=== PATIENT | female | born 1990 | race Caucasian/White ===

== ENCOUNTER 2020-06-20 14:14 | Outpatient (REF) | payer BC, SELFPAY ==
[2020-06-20 14:45] LABS: COVID-19 Test Negative (Negative)
== END 2020-06-20 14:15 | disposition home or self-care (01) ==
LOC: HO.LAB 14:14
PROVIDERS: PCP Nurse Practitioner Family; Visit Provider Internal Medicine
DX: Z20.828 Contact with and (suspected) exposure to other viral communicable diseases (principal)
CPT/HCPCS: 87635

== ENCOUNTER 2020-07-31 12:59 | Outpatient (REF) | payer BC, SELFPAY ==
[2020-08-01 03:36] LABS: CT PCR NOT DETECTED (Not Detect.); NG PCR NOT DETECTED (Not Detect.)
[2020-08-01 09:45] LABS: BV Int Neg Control Negative (Negative); BV Int Pos Control Positive (Positive)
[2020-08-08 22:18] LABS: HPV mRNA E6/E7 rflx Not Detected (Not Detected)
== END 2020-07-31 13:00 | disposition home or self-care (01) ==
LOC: HO.LAB 12:59
PROVIDERS: PCP Nurse Practitioner Family; Visit Provider Advanced Practice Midwife
DX: Z01.419 Encounter for gynecological examination (general) (routine) without abnormal findings (principal); N89.8 Other specified noninflammatory disorders of vagina; Z20.2 Contact with and (suspected) exposure to infections with a predominantly sexual mode of transmission
CPT/HCPCS: 87480; 87491; 87510; 87591; 87624; 87625; 87660; 88142

== ENCOUNTER 2020-08-06 13:49 | Outpatient (REF) | payer BC, SELFPAY | END 2020-08-06 13:50 | disposition home or self-care (01) | LOC: HO.LAB 13:49 | PROVIDERS: Visit Provider Advanced Practice Midwife | DX: Z13.89 Encounter for screening for other disorder (principal) ==

== ENCOUNTER 2021-05-29 11:46 | Outpatient (REF) | payer BC, SELFPAY ==
[2021-05-29 13:15] LABS: Syphilis Screen Nonreactive (Nonreactive)
[2021-05-29 17:15] LABS: CT PCR NOT DETECTED (Not Detect.); NG PCR NOT DETECTED (Not Detect.)
[2021-05-30 08:19] LABS: HBsAGNum1 0.24 S/CO (0.00-0.99); HIV AB/AG Nonreactive (Nonreactive); HIV Num 1 0.14 S/CO (0.00-0.99); Hepatitis B Surface Antigen Negative (Negative); ~HepC Num1 0.12 S/CO (0.00-0.79); ~Hepatitis C Antibody Nonreactive (Nonreactive)
[2021-05-30 10:59] LABS: BV Int Neg Control Negative (Negative); BV Int Pos Control Positive (Positive)
== END 2021-05-29 11:47 | disposition home or self-care (01) ==
LOC: HO.LAB 11:46
PROVIDERS: PCP Nurse Practitioner Family; Visit Provider Obstetrics & Gynecology
DX: Z30.432 Encounter for removal of intrauterine contraceptive device (principal); Z30.09 Encounter for other general counseling and advice on contraception; N76.0 Acute vaginitis; B96.89 Other specified bacterial agents as the cause of diseases classified elsewhere
CPT/HCPCS: 36415; 58301; 86780; 86803; 87340; 87389; 87480; 87491; 87510; 87591; 87660

== ENCOUNTER 2022-06-02 09:46 | Outpatient (REF) | payer BC, SELFPAY ==
[2022-06-02 16:05] LABS: CT PCR NOT DETECTED (Not Detect.); NG PCR NOT DETECTED (Not Detect.)
[2022-06-03 11:09] LABS: BV Int Neg Control Negative (Negative); BV Int Pos Control Positive (Positive)
== END 2022-06-02 09:47 | disposition home or self-care (01) ==
LOC: HO.LNP 09:46
PROVIDERS: Visit Provider Advanced Practice Midwife
DX: N89.8 Other specified noninflammatory disorders of vagina (principal)
CPT/HCPCS: 87480; 87491; 87510; 87591; 87660

== ENCOUNTER → 2022-08-12 13:28 | Outpatient (BNVA) | payer BC, SELFPAY | PROVIDERS: Visit Provider Advanced Practice Midwife | DX: Z30.430 Encounter for insertion of intrauterine contraceptive device (principal); Z32.02 Encounter for pregnancy test, result negative | CPT/HCPCS: 58300; 81025; J7298 ==

== ENCOUNTER 2023-04-20 14:46 | Outpatient (AMB) | payer BC, SELFPAY ==
--- NOTE | 2023-04-20 14:48 | MHC.OFFVIS ---
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 She is not really having any current issues though there were a few things in recent past she basically likes the Mirena but she had several episodes of recurrent bacterial vaginosis for which she preferred the gel treatment. She has not had any lately but it would be helpful to have a prescription available for her to use when she needs it. We discussed all the contributing factors that can be potential culprits for this. She did have an episode that happens occasionally of left-sided pelvic pain 1 day it was so bad she could not get out of bed but it is not there at the moment. She wondered about ovarian cysts. She does not get much in the way of periods just maybe a light spotting but she can kind a tell when her ?menses? is coming or is present even though it is just spotting. She has no worries about STDs but would like full testing with the Pap but declines blood work. She recently had a full panel of blood work done with her primary care provider with her annual and she will be seeing her PCC coming up in May for follow-up and also to get a referral to Dermatology for some warts on her right hand that are challenging to manage. She thinks she had an abnormal Pap smear years ago before she had children but can not remember exactly when that was they have been normal since then. [facility] Medical History ADHD Hypercholesteremia Seasonal allergies Surgical History No history of previous surgery Family History Father Heart disease Paternal Grandfather Diabetes mellitus Heart attack Social History Alcohol intake: current Alcohol intake frequency: holidays/special occasions only Patient Tobacco Use Status: Never used Tobacco Sexual orientation: Straight/Heterosexual Gender identity: Female Female Reproductive History Menstrual Age of Menarche: 10 control method: progestin IUCD (Mirena 08/12/22) Total pregnancies: 3 Full term: 3 Number of Living Children: 3 Date of last pap smear: 07/31/20 (neg pap and hpv) Physical Exam Const General: healthy appearing, comfortable, no acute distress, well developed and alert Nutritional Appearance: average body habitus Orientation/consciousness: patient oriented x3 Limitations: no limitations HEENT Head: Yes normocephalic Neck Neck: Yes normal visual inspection Chest Other: Soft masses upper outer quadrant of both breasts more prominent in the left breast towards the tail than the right. Nontender not hard. Diagnostic mammogram requested Chest palpation & inspection: normal inspection of the chest Breast/axilla inspection: normal inspection of the breasts and normal inspection of the axillae Breast/axilla palpation: normal palpation of the breasts and normal palpation of the axillae Resp Effort & Inspection: normal respiratory effort GI Inspection: Yes normal to inspection, No Abdominal wall edema and No distended Palpation (GI): Soft to palpation and nontender Other: Speculum exam within normal limits normal appearing clear discharge with slight yellow tinge cervix appears parous normal healthy with Mirena strings present. Uterus midposition nontender unable to reproduce patient's left-sided pelvic pain on bimanual though she was slightly tender on abdominal palpation interestingly when either adnexa was palpated she felt the discomfort on the left side. Good tone with Kegel General: Yes bladder normal to palpation External Female Exam: normal external appearance and normal appearance of the urethra Speculum Exam - Vagina: normal appearance of the vagina, normal palpation and normal vaginal discharge Speculum Exam - Cervix: normal appearance of the cervix, normal palpation and nontender Bimanual exam- vagina & uterus: normal bimanual exam, normal palpation, uterine size normal, bladder normal to palpation, consistency normal, normal palpation, uterine mobility normal, uterine shape normal, No Cervical tenderness present, non-tender and no cervical motion tenderness Bimanual Exam- Adnexa, other: normal adnexae, no masses, normal and No adnexal tenderness Neuro General: patient oriented x3 Results Reviewed Results Reviewed: ? Paps 2010 to 2020 reviewed 2020 Pap negative with negative HPV. Assessment & Plan Assessment & Plan (1) Screen for sexually transmitted diseases: Code(s): Z11.3 - Encounter for screening for infections with a predominantly sexual mode of transmission (2) Well woman exam with routine gynecological exam: Code(s): Z01.419 - Encounter for gynecological examination (general) (routine) without abnormal findings (3) Surveillance for control, intrauterine device: Code(s): Z30.431 - Encounter for routine checking of intrauterine contraceptive device (4) Presence of 52 mg levonorgestrel-releasing intrauterine device (IUD): Comment: Inserted 08/12/2022. Code(s): Z97.5 - Presence of (intrauterine) contraceptive device (5) Bilateral breast lump: Comment: Sof,t irregular masses upper outer quadrant both breasts more prominent on left Code(s): N63.10 - Unspecified lump in the right breast, unspecified quadrant; N63.20 - Unspecified lump in the left breast, unspecified quadrant (6) Pelvic pain: Comment: Intermittent, mostly left side. Code(s): R10.2 - Pelvic and perineal pain (7) Hx of abnormal cervical Pap smear: Comment: years ago, normal [id number]; pap done 04/20/23 Code(s): Z87.42 - Personal history of other diseases of the female genital tract Plan -----Discussed in this visit the following: healthy balanced diet, regular and consistent exercise, getting recommended health screens, doing the best she can for her particular health concerns, kegel exercises, pap smear screening and followup recommendations, mammography screening and SBE, normal changes in cycles in her life stage--- . Reviewed her experience with the Mirena and the normal side effects which she appears to be having reviewed her experience with bacterial vaginosis and the possible correlation to when she is more sexually active she is aware of that. Is prescription sent to her pharmacy for metronidazole gel so that she may can have it for when she really needs it without needing to call. As she knows when she has the symptoms and is not prone to overusing it. She also has used boric acid in the past as well . She has been trying to eat better and though it is not completely keto she knows that she feels better when she eats fewer carbs.. Discussed that I am not actually worried about the masses in her breast as my sense is that it was within the range of normal breast tissue but I am ordering a mammogram to follow-up as they are palpable on both breasts though more so on the left breast in the upper-outer quadrant of both. Discussed that radiology will inform her of the results and if there is any follow-up needed. She is not having any pelvic pain today though she could identify some discomfort in right and left quadrant when I pressed abdominally however with pelvic exam she was quite comfortable. The pain she had experienced was somewhat acute and is not present now but for peace of mind I am ordering a pelvic ultrasound and we will have a quick follow-up afterwards discussed that ovarian cysts can come and go. Discussed her contentment with the Mirena IU S in general strings were visible and it appears to be not giving her any problem. 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 RTC for follow-up the ultrasound which can be a tele visit and otherwise will see her in 1 year. While I am not super well-versed on shedding of HPV virus from warts on her hand discussed possible caution when she is putting tampons in or out and perhaps covering the warts. Orders: Orders Bacterial Vaginosis Panel Today Z11.3 - Encounter for screening for infections with a predominantly sexual mode of transmission CT NG by PCR Today Z11.3 - Encounter for screening for infections with a predominantly sexual mode of transmission MM tomosynthesis diagnostic BI Today N63.10 - Unspecified lump in the right breast, unspecified quadrant, N63.20 - Unspecified lump in the left breast, unspecified quadrant, R10.2 - Pelvic and perineal pain, Z01.419 - Encounter for gynecological examination (general) (routine) without abnormal findings, Z11.3 - Encounter for screening for infections with a predominantly sexual mode of transmission, Z30.431 - Encounter for routine checking of intrauterine contraceptive device, Z97.5 - Presence of (intrauterine) contraceptive device US pelvic and transvaginal Today R10.2 - Pelvic and perineal pain, Z30.431 - Encounter for routine checking of intrauterine contraceptive device, Z97.5 - Presence of (intrauterine) contraceptive device Pap Smear Today Z01.419 - Encounter for gynecological examination (general) (routine) without abnormal findings Medications: New metronidazole 0.75%(37.5mg/5gram) 1 appful vaginal BID 5 days 1 kit 2RF Coding Level of Care Code Est Pt Prev Care 18-39y(57994) Diagnoses Screen for sexually transmitted diseases Z11.3 Well woman exam with routine gynecological exam Z01.419 Surveillance for control, intrauterine device Z30.431 Presence of 52 mg levonorgestrel-releasing intrauterine device (IUD) Z97.5 Bilateral breast lump N63.10; N63.20 Pelvic pain R10.2 Hx of abnormal cervical Pap smear Z87.42
[2023-04-20 14:49] VITALS: BP 110/70; BMI 32.0
== END 2023-04-20 15:42 | disposition home or self-care (01) ==
LOC: HO.HWS 14:46
PROVIDERS: Visit Provider Advanced Practice Midwife
DX: Z01.419 Encounter for gynecological examination (general) (routine) without abnormal findings (principal); Z11.3 Encounter for screening for infections with a predominantly sexual mode of transmission; Z97.5 Presence of (intrauterine) contraceptive device; N63.10 Unspecified lump in the right breast, unspecified quadrant; N63.20 Unspecified lump in the left breast, unspecified quadrant; R10.2 Pelvic and perineal pain; Z87.42 Personal history of other diseases of the female genital tract
CPT/HCPCS: 99395

== ENCOUNTER 2023-04-20 14:46 | Outpatient (REF) | payer BC, SELFPAY ==
[2023-04-25 03:18] LABS: HPV 16 RNA NOT DETECTED (NOT DETECTED); HPV mRNA E6/E7 rflx Detected (Not Detected)
== END 2023-04-20 14:47 | disposition home or self-care (01) ==
LOC: HO.LNP 14:46
PROVIDERS: Visit Provider Advanced Practice Midwife
DX: Z01.419 Encounter for gynecological examination (general) (routine) without abnormal findings (principal); Z11.51 Encounter for screening for human papillomavirus (HPV)
CPT/HCPCS: 87624; 87625; 88142

== ENCOUNTER 2023-04-20 15:22 | Outpatient (REF) | payer BC, SELFPAY ==
[2023-04-21 06:18] LABS: CT PCR NOT DETECTED (Not Detect.); NG PCR NOT DETECTED (Not Detect.)
[2023-04-21 15:26] LABS: BV Int Neg Control Negative (Negative); BV Int Pos Control Positive (Positive)
== END 2023-04-20 15:23 | disposition home or self-care (01) ==
LOC: HO.LAB 15:22
PROVIDERS: Visit Provider Advanced Practice Midwife
DX: Z20.2 Contact with and (suspected) exposure to infections with a predominantly sexual mode of transmission (principal)
CPT/HCPCS: 0353U; 87480; 87510; 87660

== ENCOUNTER 2023-04-29 15:55 | Outpatient (REF) | payer BC, MEDICAID, SELFPAY ==
--- NOTE | ~2023-04-29 | US_ITS ---
EXAMINATION: US PELVIS CLINICAL INFORMATION: Intermittent left-sided pelvic pain. COMPARISON: Pelvic ultrasound 01/12/2018. TECHNIQUE: Ultrasound of the pelvis is performed using both transabdominal and transvaginal transducers along with Doppler. Transvaginal imaging is performed due to inadequate visualization transabdominally. FINDINGS: UTERUS: The uterus is anteverted and measures 8.3 x 3.8 x 5.9 cm. The double wall endometrial thickness is 0.7 mm. An IUD is present within the endometrial canal in good position. The uterus is smooth in contour and has normal myometrial echogenicity. No visible fibroid. ADNEXA: Both ovaries are visualized. There is normal color flow to the adnexa. There is no ovarian torsion. There is no pelvic ascites or fluid collection. Right ovary measures: 3.9 x 2.4 x 3.4 cm for a volume of 16.7 mL which includes a 2.9 x 2.0 x 2.6 cm complex cyst. No follow up is needed. Left ovary measures: 3.7 x 1.5 x 2.8 cm for a volume of 8.1 mL and appears unremarkable. US/US pelvic and transvaginal IMPRESSION: No significant abnormality is seen. An IUD is present in the uterus in good position.
== END 2023-04-29 15:56 | disposition home or self-care (01) ==
LOC: HO.US 15:55
PROVIDERS: Visit Provider Advanced Practice Midwife
DX: R10.2 Pelvic and perineal pain (principal); Z97.5 Presence of (intrauterine) contraceptive device
CPT/HCPCS: 76830; 76856

== ENCOUNTER 2023-05-19 15:03 | Outpatient (AMB) | payer BC, SELFPAY ==
--- NOTE | 2023-05-19 15:06 | MHC.OFFVIS ---
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 She has mild intermittent pain on her side and so an ultrasound was ordered to evaluate.. She has a history of abnormal Paps she also has a hx of recurrent BV PFSH Medical History Hypercholesteremia ADHD Seasonal allergies Surgical History No history of previous surgery Family History Father Heart disease Paternal Grandfather Diabetes mellitus Heart attack Social History Alcohol intake: current Alcohol intake frequency: holidays/special occasions only Patient Tobacco Use Status: Never used Tobacco Sexual orientation: Straight/Heterosexual Gender identity: Female Female Reproductive History Menstrual Age of Menarche: 10 control method: progestin IUCD Date of last pap smear: 04/21/23 (+HPV) History of abnormal pap smear: Yes Physical Exam Vital Signs: Last Vital Signs BP 110/64 05/19/23 15:08 BMI result Body Mass Index 31.8 Results Reviewed Results Reviewed: Patient: Meaghan Cruz MR#: [id number] : 1990 Acct:[id number] Age/Sex: 32 / F ADM Date: 04/29/23 Loc: [facility]. Attending Dr: Marilin Rock CNM Ordering Physician: Marilin Rock CNM Date of Service: 04/29/23 Procedure(s): US pelvic and transvaginal Accession Number(s): [id number] cc: Marilin Rock CNM~ EXAMINATION: US PELVIS CLINICAL INFORMATION: Intermittent left-sided pelvic pain. COMPARISON: Pelvic ultrasound 01/12/2018. TECHNIQUE: Ultrasound of the pelvis is performed using both transabdominal and transvaginal transducers along with Doppler. Transvaginal imaging is performed due to inadequate visualization transabdominally. FINDINGS: UTERUS: The uterus is anteverted and measures 8.3 x 3.8 x 5.9 cm. The double wall endometrial thickness is 0.7 mm. An IUD is present within the endometrial canal in good position. The uterus is smooth in contour and has normal myometrial echogenicity. No visible fibroid. ADNEXA: Both ovaries are visualized. There is normal color flow to the adnexa. There is no ovarian torsion. There is no pelvic ascites or fluid collection. Right ovary measures: 3.9 x 2.4 x 3.4 cm for a volume of 16.7 mL which includes a 2.9 x 2.0 x 2.6 cm complex cyst. No follow up is needed. Left ovary measures: 3.7 x 1.5 x 2.8 cm for a volume of 8.1 mL and appears unremarkable. US/US pelvic and transvaginal IMPRESSION: No significant abnormality is seen. An IUD is present in the uterus in good position. 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 Adequacy: Endocervical component present. Interpretation: Inflammation with associated cellular changes. Coccobacilli consistent with shift in vaginal jory. HPV mRNA E6/E7: DETECTED This assay detects E6/E7 viral messenger RNA (mRNA) from 14 high-risk HPV types (16, 18, 31, 33, 35, 39, 45, 51, 52, 56, 58, 59, 66, 68) HPV Type 16 RNA: Not Detected HPV Type 18/45 RNA: DETECTED HPV testing performed by [facility], [place], [place]. See reference laboratory portion of the EMR for entire report. Clinical Information LMP:Mirena Previous PAP test:2019, hx of abnormal pap per patient Material Received ThinPrep-Cervical Electronically Signed By: Savanah Curry MD 05/05/23 0957 The Pap Test is a screening procedure with the inherent possibility of both false negative and false positive results. Results should be interpreted in the context of historic and current clinical findings. Reliability of the Pap Test is enhanced by performing the test on a regular repetitive basis. Patient: Meaghan Cruz Age/Sex: 32/F MR#: [id number] Page 1 of 1 Name: Meaghan Cruz Age/Sex: 32/F : 1990 Unit#: [id number] Attend Dr: Marilin Rock Re04/20/23 Status: DEP REF Location: .LAB Disch: SPEC : [id number] THOMAS: 04/20/23 STATUS: COMP REQ : [id number] RECD: 04/20/[address]: Marilin Rock [facility] COMP: 04/21/231530 ENTERED: 04/20/[address] [facility] [address]: ORDERED: BV Panel Test Result Flag Reference Site Trichomonas DNA Negative Negative Gardnerella DNA Positive A Negative Lindsey DNA Negative Negative Name: Meaghan Cruz Age/Sex: 32/F : 1990 Unit#: [id number] Attend Dr: Marilin Rock [facility] Re04/20/23 Status: DEP REF Location: .LAB Disch: SPEC : [id number] THOMAS: 04/20/23 STATUS: COMP REQ : [id number] RECD: 04/20/[address]: Marilin Rock [facility] COMP: 04/21/23 ENTERED: 04/20/[address] [facility] [address]: ORDERED: CT NG by PCR QUERIES: CT NG Source: Vaginal Test Result Flag Reference Site CT PCR NOT DETECTED Not Detect. A not detected test result does not exclude the possibility of infection because test results can be affected by improper specimen collection, concurrent antibiotic therapy, or the number of organisms in the specimen which may be below the sensitivity of the test. As with many diagnostic tests, results from the Xpert CT/NG assay should be interpreted in conjunction with other laboratory and clinical data available to the clinician. Xpert CT/NG performance has not been evaluated in patients less than 14 years of age. The assay should not be used for the evaluation of suspected sexual abuse or for other medico-legal indications. Additional testing is recommended in any circumstance when false positive or false negative results could lead to adverse medical, social or psychological consequences. NG PCR NOT DETECTED Not Detect. A not detected test result does not exclude the possibility of infection because test results can be affected by improper specimen collection, concurrent antibiotic therapy, or the number of organisms in the specimen which may be below the sensitivity of the test. As with many diagnostic tests, results from the Xpert CT/NG assay should be interpreted in conjunction with other laboratory and clinical data available to the clinician. Xpert CT/NG performance has not been evaluated in patients less than 14 years of age. The assay should not be used for the evaluation of suspected sexual abuse or for other medico-legal indications. Additional testing is recommended in any circumstance when false positive or false negative results could lead to adverse medical, social or psychological consequences. Assessment & Plan Assessment & Plan (1) Pelvic pain: Comment: Intermittent, mostly left side. Code(s): R10.2 - Pelvic and perineal pain (2) Ovarian cyst, complex: Code(s): N83.299 - Other ovarian cyst, unspecified side (3) Bacterial vaginosis: Code(s): N76.0 - Acute vaginitis; B96.89 - Other specified bacterial agents as the cause of diseases classified elsewhere Plan Reviewed the ultrasound the results of the bacterial vaginosis and the abnormal Pap smear (presence of high risk HPV) and the plan for all of them. Reviewed that the radiologist recommends no particular follow-up for the 2 cm ovarian cyst noted to be complex. I reviewed multiple up to date recommendations with the patient. Options of referral for evaluation and discussion evaluating with a CA 125 verses follow-up ultrasound in about 3 months with the major options explored. Given all of this and the patient is level of concern which is not very high at this point she would prefer to just follow with a repeat ultrasound in 3 months. if there is anything different that happens or that recommends to follow-up from that there we will pursue it. She had been Googleing so we also discussed that she did not meet the physical criteria for PID. Reviewed that her Pap smear will be repeated next year per ASCCP guidelines. Additionally she does not have any particular symptoms of BV now but she does have the prescription I sent for Metrogel with refills for future use. We will have another visit after 3 months to review the findings and review follow-up from there. Is happy with the IUD as a method . Sometimes she is uncomfortable enough not to have sex but she is comfortable enough at other times. The discomfort she feels is intermittent. Discussed the cyclic nature of cysts. Orders: Orders US pelvic and transvaginal 3 Months N83.299 - Other ovarian cyst, unspecified side, R10.2 - Pelvic and perineal pain Coding Level of Care Code Est Pt Level 3 (59587) Diagnoses Pelvic pain R10.2 Ovarian cyst, complex N83.299 Bacterial vaginosis N76.0; B96.89
[2023-05-19 15:08] VITALS: BP 110/64; BMI 31.8
== END 2023-05-19 16:06 | disposition home or self-care (01) ==
PROVIDERS: Visit Provider Advanced Practice Midwife
DX: R10.2 Pelvic and perineal pain (principal); N83.299 Other ovarian cyst, unspecified side; N76.0 Acute vaginitis; B96.89 Other specified bacterial agents as the cause of diseases classified elsewhere
CPT/HCPCS: 99213

== ENCOUNTER → 2023-05-19 15:03 | Outpatient (BNVA) | payer BC, SELFPAY | PROVIDERS: Visit Provider Advanced Practice Midwife ==

== ENCOUNTER → 2023-05-28 14:00 | Outpatient (BNV) | payer BC, SELFPAY | PROVIDERS: Visit Provider Radiology Diagnostic Radiology | DX: R92.2 Inconclusive mammogram (principal); N63.11 Unspecified lump in the right breast, upper outer quadrant; N63.21 Unspecified lump in the left breast, upper outer quadrant | CPT/HCPCS: 76642; 77062; 77066 ==

== ENCOUNTER 2023-05-28 15:30 | Outpatient (REF) | payer BC, MEDICAID, SELFPAY ==
--- NOTE | ~2023-05-28 | MM_ITS ---
EXAMINATION: MM DIAGNOSTIC DIGITAL BREAST TOMOSYNTHESIS, BILATERAL US BREAST LIMITED, BILATERAL MAMMOGRAPHY: CLINICAL INFORMATION: Patient's physician felt soft irregular masses upper outer quadrants of both breasts. Patient cannot personally feel these abnormalities. COMPARISON: Mammography: 05/28/2023 mammography, baseline exam. TECHNIQUE: Digital breast tomosynthesis is performed in both the craniocaudal and mediolateral oblique views along with computer-aided detection (CAD). Synthesized 2D images are generated from the tomosynthesis. FINDINGS: There are scattered areas of fibroglandular density (ACR BI-RADS breast composition Category b). There are no suspicious masses, suspicious grouped calcifications, or areas of architectural distortion. The parenchymal pattern is stable from prior exams. There are no abnormalities on mammography in the upper outer quadrants of either breast. No mammographic correlate to the foci of purported palpable concern. ULTRASOUND: CLINICAL INFORMATION: Patient's physician felt soft irregular masses upper outer quadrants of both breasts. Patient cannot personally feel these abnormalities. COMPARISON: None TECHNIQUE: Targeted sonographic evaluation was performed using a high frequency linear transducer. Attention was given to the upper outer quadrants of both breasts in the purported palpable regions. Selected archived documentation. FINDINGS: RIGHT BREAST: There is a mixture of fatty and fibroglandular tissue. No suspicious mass is seen. There is no pathologic acoustic shadowing. There is no cystic abnormality. No abnormal lymph nodes noted. LEFT BREAST: There is a mixture of fatty and fibroglandular tissue. No suspicious mass is seen. There is no pathologic acoustic shadowing. There is no cystic abnormality. No abnormal lymph nodes noted. MM/MM tomosynthesis diagnostic BI IMPRESSION: No findings suspicious for malignancy in either breast. No mammographic or ultrasonographic correlates to the purported foci of palpable concern in the upper outer quadrants of both breasts. Recommend clinical management. Decision to biopsy a palpable focus without imaging correlate must be determined clinically. OVERALL ASSESSMENT: Mammography: BI-RADS 1 - Negative Ultrasound: BI-RADS 1 - Negative RECOMMENDATION: 1. Patient should be managed based on the clinical impression. Decision to proceed with biopsy should be based on clinical grounds and degree of clinical concern. 2. Otherwise, routine annual screening mammography at age 38. This patient's information was entered into a reminder system with a target due date for their next mammogram.
== END 2023-05-28 15:31 | disposition home or self-care (01) ==
LOC: HO.MAMMO 15:30
PROVIDERS: Visit Provider Advanced Practice Midwife
DX: N63.21 Unspecified lump in the left breast, upper outer quadrant (principal); N63.11 Unspecified lump in the right breast, upper outer quadrant
CPT/HCPCS: 76642; 77062; 77066

== ENCOUNTER 2024-04-25 15:08 | Outpatient (AMB) | payer OTHER, SELFPAY ==
[2024-04-25 15:25] VITALS: BP 122/70; BMI 30.9
--- NOTE | 2024-04-25 15:25 | A.OFFVIS_ITS ---
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 In addition she wants to talk about possibly removing her Mirena she has gone from childbirth to to childbirth to for years and then had the Mirena place this is her 2nd she does love it but she feels like it is not quite normal to not get her. 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 She broke up with somebody in January and has been tested for STIs with blood work in February she is open to testing today during the exam just to be sure. She is raising her 3 boys by herself 14 12 in 8. They are very busy in baseball and she is introducing them to other sports as well. She just elizabeth back this morning from while would [place] with kids in the car where she was vacationing with her parents and other relatives. [facility] Medical History Hypercholesteremia ADHD Seasonal allergies Surgical History No history of previous surgery Family History Father Heart disease Paternal Grandfather Diabetes mellitus Heart attack Social History Alcohol intake: current Alcohol intake frequency: holidays/special occasions only Patient Tobacco Use Status: Never used Tobacco Sexual orientation: Straight/Heterosexual Gender identity: Female Female Reproductive History Menstrual Age of Menarche: 10 Duration of menses: <3 days control method: progestin IUCD Total pregnancies: 3 Full term: 3 History of abnormal pap smear: Yes Physical Exam Vital Signs: Last Vital Signs BP 122/70 04/25/24 15:25 BMI result Body Mass Index 30.9 Const General: healthy appearing, comfortable, no acute distress, well developed and alert Nutritional Appearance: average body habitus Orientation/consciousness: patient oriented x3 Limitations: no limitations HEENT Head: Yes normocephalic Neck Neck: Yes normal visual inspection Chest Other: irregular sl firm mass at 0100 on left, and some scattered densities at 11 on right, similar to last years exam, ( had neg mammogram and u/s ) Chest palpation & inspection: normal inspection of the chest Breast/axilla inspection: normal inspection of the breasts and normal inspection of the axillae Breast/axilla palpation: normal palpation of the breasts and normal palpation of the axillae Chest/axillae images: 2 1. left side 2. right side Resp Effort & Inspection: normal respiratory effort GI Inspection: Yes normal to inspection, No Abdominal wall edema and No distended Palpation (GI): Soft to palpation and nontender Other: Normal speculum exam vagina pink and moist cervix healthy appearing normal appearing mucus Mirena string visible in os. Cervix long close thick mobile nontender adnexa nontender good tone with Kegel. General: Yes bladder normal to palpation External Female Exam: normal external appearance and normal appearance of the urethra Speculum Exam - Vagina: normal appearance of the vagina, normal palpation and normal vaginal discharge Speculum Exam - Cervix: normal appearance of the cervix, normal palpation and nontender Bimanual exam- vagina & uterus: normal bimanual exam, normal palpation, uterine size normal, bladder normal to palpation, consistency normal, normal palpation, uterine mobility normal, uterine shape normal, No Cervical tenderness present, non-tender and no cervical motion tenderness Bimanual Exam- Adnexa, other: normal adnexae, no masses, normal and No adnexal tenderness Neuro General: patient oriented x3 Results Reviewed Results Reviewed: Patient: Meaghan Cruz MR#: [id number] : 1990 Acct:[id number] Age/Sex: 32 / F ADM Date: 05/28/23 Loc: HO.MAMMO Attending Dr: Marilin Rock CNM Ordering Physician: Marilin Rock CNM Date of Service: 05/28/23 Procedure(s): US breast BI limited mamm only Accession Number(s): [id number] cc: Marilin Rock CNM~ EXAMINATION: MM DIAGNOSTIC DIGITAL BREAST TOMOSYNTHESIS, BILATERAL US BREAST LIMITED, BILATERAL MAMMOGRAPHY: CLINICAL INFORMATION: Patient's physician felt soft irregular masses upper outer quadrants of both breasts. Patient cannot personally feel these abnormalities. COMPARISON: Mammography: 05/28/2023 mammography, baseline exam. TECHNIQUE: Digital breast tomosynthesis is performed in both the craniocaudal and mediolateral oblique views along with computer-aided detection (CAD). Synthesized 2D images are generated from the tomosynthesis. FINDINGS: There are scattered areas of fibroglandular density (ACR BI-RADS breast composition Category b). There are no suspicious masses, suspicious grouped calcifications, or areas of architectural distortion. The parenchymal pattern is stable from prior exams. There are no abnormalities on mammography in the upper outer quadrants of either breast. No mammographic correlate to the foci of purported palpable concern. ULTRASOUND: CLINICAL INFORMATION: Patient's physician felt soft irregular masses upper outer quadrants of both breasts. Patient cannot personally feel these abnormalities. COMPARISON: None TECHNIQUE: Targeted sonographic evaluation was performed using a high frequency linear transducer. Attention was given to the upper outer quadrants of both breasts in the purported palpable regions. Selected archived documentation. FINDINGS: RIGHT BREAST: There is a mixture of fatty and fibroglandular tissue. No suspicious mass is seen. There is no pathologic acoustic shadowing. There is no cystic abnormality. No abnormal lymph nodes noted. LEFT BREAST: There is a mixture of fatty and fibroglandular tissue. No suspicious mass is seen. There is no pathologic acoustic shadowing. There is no cystic abnormality. No abnormal lymph nodes noted. US/US breast BI limited mamm only IMPRESSION: No findings suspicious for malignancy in either breast. No mammographic or ultrasonographic correlates to the purported foci of palpable concern in the upper outer quadrants of both breasts. Recommend clinical management. Decision to biopsy a palpable focus without imaging correlate must be determined clinically. OVERALL ASSESSMENT: Mammography: BI-RADS 1 - Negative Ultrasound: BI-RADS 1 - Negative RECOMMENDATION: 1. Patient should be managed based on the clinical impression. Decision to proceed with biopsy should be based on clinical grounds and degree of clinical concern. 2. Otherwise, routine annual screening mammography at age 38. This patient's information was entered into a reminder system with a target due date for their next mammogram. Dictated By: Justus Stanley MD Signed By: <Electronically signed by Justus Stanley MD in OV> 05/28/23 1703 DD/ 1625 TD/TT: [facility] LSIL/ pos HPV. Assessment & Plan Assessment & Plan (1) Screen for sexually transmitted diseases: Code(s): Z11.3 - Encounter for screening for infections with a predominantly sexual mode of transmission Category: Medical (2) Surveillance for control, intrauterine device: Code(s): Z30.431 - Encounter for routine checking of intrauterine contraceptive device Category: Medical (3) Presence of 52 mg levonorgestrel-releasing intrauterine device (IUD): Comment: Inserted 08/12/2022. Code(s): Z97.5 - Presence of (intrauterine) contraceptive device Category: Social Hx (4) Bilateral breast lump: Comment: Soft irregular masses upper outer quadrant both breasts more prominent on left; felt 04/25/24 as well. Code(s): N63.10 - Unspecified lump in the right breast, unspecified quadrant; N63.20 - Unspecified lump in the left breast, unspecified quadrant Category: Medical (5) Hx of abnormal cervical Pap smear: Comment: years ago, normal [id number]; pap done 04/20/23= HPV positive, Pap neg;-repeat in 1 year her ASCCP; pap done 02/16/24 per pcc=CIN1/Pos hpv,- needs colpo Code(s): Z87.42 - Personal history of other diseases of the female genital tract Category: Medical (6) Ovarian cyst, complex: Comment: Patient reports that her PCC had her repeat the scan this year and it was negative. 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 -----discussed option of removing the Mirena and that it is okay to not get her menses while she has that in. Discussed what she would do if she had it removed she would be considering either pills or the NuvaRing but after some discussion she has decided that she would leave it in for now and think on it. -----breast masses again palpable. Mammogram and ultrasound was reassuring last year however we did discuss the other recommendation that consideration be given to clinical management the only way to assess that would be have her have a consultation with breast surgery for decision discussion about whether not to biopsy or not. Given that less than a year has passed since last scans we will defer any scanning decisions to referral. ------in reference to the previously seen cyst on ultrasound last year her primary care provider repeated pelvic ultrasound somewhat recently and patient reports that everything was fine so there is no need for follow-up with that. -----offered testing for STIs with blood work but she has had that done recently since her break-up. ------she is very tanned having come from the beach but fair complected. Discussed skin care she is very careful with sunscreen use. ------RTC next year or p.r.n. Orders: Orders 2 CT NG by PCR Today N89.8 - Other specified noninflammatory disorders of vagina, Z20.2 - Contact with and (suspected) exposure to infections with a predominantly sexual mode of transmission Bacterial Vaginosis Panel Today N89.8 - Other specified noninflammatory disorders of vagina Referrals 2 Breast Surgery Referral N63.10 - Unspecified lump in the right breast, unspecified quadrant, N63.20 - Unspecified lump in the left breast, unspecified quadrant, N83.299 - Other ovarian cyst, unspecified side, Z11.3 - Encounter for screening for infections with a predominantly sexual mode of transmission, Z30.431 - Encounter for routine checking of intrauterine contraceptive device, Z87.42 - Personal history of other diseases of the female genital tract, Z97.5 - Presence of (intrauterine) contraceptive device Coding Level of Care Code Est Pt Prev Care 18-39y(71747) Diagnoses Screen for sexually transmitted diseases Z11.3 Surveillance for control, intrauterine device Z30.431 Presence of 52 mg levonorgestrel-releasing intrauterine device (IUD) Z97.5 Bilateral breast lump N63.10; N63.20 Hx of abnormal cervical Pap smear Z87.42 Ovarian cyst, complex N83.299
== END 2024-04-25 16:22 | disposition home or self-care (01) ==
PROVIDERS: Visit Provider Advanced Practice Midwife
DX: Z01.411 Encounter for gynecological examination (general) (routine) with abnormal findings (principal); N63.10 Unspecified lump in the right breast, unspecified quadrant
CPT/HCPCS: 99395

== ENCOUNTER 2024-04-25 15:08 | Outpatient (REF) | payer OTHER, SELFPAY ==
[2024-04-26 12:13] LABS: Bacterial Vaginosis PCR NEGATIVE (Negative); Candida Group PCR DETECTED (Not Detect); Candida glab krusei PCR NOT DETECTED (Not Detect); Trichomonas vaginalis PCR NOT DETECTED (Not Detect)
[2024-04-26 12:35] LABS: CT PCR NOT DETECTED (Not Detect.); NG PCR NOT DETECTED (Not Detect.)
== END 2024-04-25 15:09 | disposition home or self-care (01) ==
LOC: HO.LAB 15:08
PROVIDERS: Visit Provider Advanced Practice Midwife
DX: N89.8 Other specified noninflammatory disorders of vagina (principal); Z20.2 Contact with and (suspected) exposure to infections with a predominantly sexual mode of transmission
CPT/HCPCS: 0352U; 87491; 87591

== ENCOUNTER 2024-04-29 08:20 | Outpatient (AMB) | payer OTHER, SELFPAY ==
[2024-04-29 08:28] VITALS: BP 113/74; PULSE 80; BMI 30.9
--- NOTE | 2024-04-29 08:28 | A.OFFVIS_ITS ---
Vital Signs 3 04/29/24 08:28 Height 5 ft 2 in Weight 168 lb 15.996 oz BMI 30.9 BP 113/74 Blood Pressure Location Rt brachial Position Sitting Pulse 80 Intake Visit Reasons: bilateral breast lump Intake Note: This patient presents for bilateral breast lump. Pt c/o; reports her OB felt lump on both side of the breast, reports no pain or tenderness, reports no nipple discharge. 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 The same findings were noted last year on her examination and subsequent mammogram and ultrasound were performed on 05/28/2023. This revealed no suspicious findings in the region of the palpable abnormality at the upper outer quadrants. There was no mammographic evidence of malignancy (BI-RADS 1). She denies any symptoms in the breast bleeding breast pain, skin change, nipple discharge or arm pain. She denies a previous history of breast cancer or breast surgery. Her family history is negative for breast cancer. She is with 3 sons ages 14, 12 and 8. She reports breast-feeding all 3 children. She denies history of breast trauma, infection or radiation. ON LICENSE OF [facility] Medical History Hypercholesteremia ADHD Seasonal allergies Surgical History History of oral surgery No history of previous surgery Family History Father Heart disease Paternal Grandfather Diabetes mellitus Heart attack Social History Alcohol intake: current Alcohol intake frequency: holidays/special occasions only Patient Tobacco Use Status: Never used Tobacco Sexual orientation: Straight/Heterosexual Gender identity: Female Female Reproductive History Menstrual Age of Menarche: 10 Total pregnancies: 3 Review of Systems Const All systems reviewed & are unremarkable except as noted in HPI and below Denies chills, Denies fever(s), Denies headache(s), Denies poor appetite and Denies weakness ENT Denies headache(s) Card Denies chest pain, Denies irregular heart rhythm, Denies palpitations and Denies dyspnea Resp Denies cough, Denies excessive phlegm production and Denies dyspnea GI Denies abdominal pain, Denies bloating, Denies change in bowel habits, Denies constipation, Denies heartburn, Denies diarrhea, Denies nausea and Denies vomiting Denies urinary frequency and Denies nipple discharge Musc Denies back pain, Denies muscle weakness and Denies numbness Skin/Breast Denies breast pain, Reports breast mass, Denies changing lesions, Denies nipple discharge and Denies unusual bruising Neuro Denies headache(s), Denies numbness, Denies paresthesias and Denies weakness Psych Denies anxiety and Denies depression Endo Denies palpitations Balaji/Lymph Denies lymphadenopathy Physical Exam Vital Signs: Last Vital Signs Pulse 80 04/29/24 08:28 BP 113/74 04/29/24 08:28 BMI result Body Mass Index 30.9 Const General: cooperative and no acute distress Nutritional Appearance: well nourished Orientation/consciousness: patient oriented x3 Limitations: no limitations HEENT Head: Yes normocephalic and Yes atraumatic Ears: hearing grossly normal bilaterally Chest Other: Left breast: No skin change, no nipple retraction, no nipple discharge, no palpable mass, no enlarged lymph nodes. Of note the upper outer quadrant does reveal increase in fibrocystic change involving the entire quadrant without 1 particular area of density. There is some tenderness to palpation suggestive of fibrocystic change. No suspicious changes are noted. Right breast: No skin change, no nipple retraction, no nipple discharge, no palpable mass, no enlarged lymph nodes, fibrocystic change also noted in the upper outer quadrant diffusely without a suspicious palpable mass. No tenderness to palpation. Chest/axillae images: 2 1. Area of fibrocystic change upper outer quadrant right breast 2. Area of fibrocystic change upper outer quadrant left breast Resp Effort & Inspection: normal respiratory effort, no audible wheezes, no cough and no respiratory distress Cardio Jugular venous distension: no JVD GI Inspection: Yes normal to inspection Skin Other: Warm, dry, no rash Neuro General: patient oriented x3 Extrem General: Yes no clubbing, cyanosis or edema Assessment & Plan Assessment & Plan (1) Bilateral breast lump: Comment: Soft irregular masses upper outer quadrant both breasts more prominent on left; felt 04/25/24 as well. Code(s): N63.10 - Unspecified lump in the right breast, unspecified quadrant; N63.20 - Unspecified lump in the left breast, unspecified quadrant Category: Medical Plan 33-year-old female patient presenting with possible bilateral upper outer quadrant breast mass noted on recent examination. Patient denies a prior history of breast problems or breast surgery. Her family history is negative for breast cancer. Mammogram 05/28/2023 revealed no suspicious findings in either breast (BI-RADS 1). Examination today revealed mainly fibrocystic change in the upper outer quadrants with no discrete palpable mass of concern. I recommended repeating the diagnostic mammogram next month and if placed in order for this exam. She expressed understanding and agrees with the plan. She will follow-up in approximately 1-2 months for repeat examination. Orders: Orders 2 MM diagnostic mammo BI 05/30/24 N63.10 - Unspecified lump in the right breast, unspecified quadrant, N63.20 - Unspecified lump in the left breast, unspecified quadrant Coding Level of Care Code New Pt Level 4 (71905) Diagnoses Bilateral breast lump N63.10; N63.20
== END 2024-04-29 08:46 | disposition home or self-care (01) ==
PROVIDERS: Visit Provider Surgery
DX: N63.10 Unspecified lump in the right breast, unspecified quadrant (principal); N63.20 Unspecified lump in the left breast, unspecified quadrant
CPT/HCPCS: 99204

== ENCOUNTER → 2024-04-29 08:20 | Outpatient (BNVA) | payer OTHER, SELFPAY | PROVIDERS: Visit Provider Surgery ==

== ENCOUNTER 2024-05-04 12:49 | Outpatient (REF) | payer OTHER, SELFPAY ==
--- NOTE | ~2024-05-04 | US_ITS ---
EXAMINATION: MM DIAGNOSTIC DIGITAL BREAST TOMOSYNTHESIS, BILATERAL US BREAST LIMITED, BILATERAL MAMMOGRAPHY: CLINICAL INFORMATION: 33-year-old female, clinician felt palpable foci in both breasts upper outer quadrant, similar to 05/28/2023. COMPARISON: Mammography: 05/28/2023 with bilateral breast ultrasound. TECHNIQUE: Digital breast tomosynthesis is performed in both the craniocaudal and mediolateral oblique views along with computer-aided detection (CAD). Synthesized 2D images are generated from the tomosynthesis. In addition, 3-D full field bilateral left ML views were also obtained. FINDINGS: There are scattered areas of fibroglandular density (ACR BI-RADS breast composition Category b). There are no suspicious masses, suspicious grouped calcifications, or areas of architectural distortion in either breast. The parenchymal pattern is stable from prior exams. There is no skin or axillary abnormality. No mammographic abnormalities are present in the upper outer quadrants of either breast to correlate with the palpable foci. ULTRASOUND: CLINICAL INFORMATION: As above. COMPARISON: 05/28/2023 TECHNIQUE: Targeted sonographic evaluation bilateral breasts was performed using a high frequency linear transducer. Attention was given to the upper outer quadrants of both breasts to include the palpable regions. Selected archived documentation. FINDINGS: RIGHT BREAST: There is a mixture of fatty and fibroglandular tissue. No suspicious mass is seen. There is no pathologic acoustic shadowing. No cystic abnormality. LEFT BREAST: There is a mixture of fatty and fibroglandular tissue. No suspicious mass is seen. There is no pathologic acoustic shadowing. No cystic abnormality. No ultrasound abnormality in the bilateral regions of palpable concern. US/US breast BI limited mamm only IMPRESSION: -No findings suspicious for malignancy in either breast. -No mammographic or sonographic abnormalities in the regions of palpable concern bilateral breasts upper-outer quadrants. Recommend clinical management and follow-up. -Otherwise, recommend resuming screening mammography at age 40. OVERALL ASSESSMENT: Mammography: BI-RADS 1 - Negative Ultrasound: BI-RADS 1 - Negative RECOMMENDATION: Mammo at 40 or earlier if clinically needed Electronically signed by: Justus Stanley MD 05/04/2024 01:47 PM EDT
== END 2024-05-04 12:50 | disposition home or self-care (01) ==
LOC: HO.MAMMO 12:49
PROVIDERS: Visit Provider Surgery
DX: N63.21 Unspecified lump in the left breast, upper outer quadrant (principal); N63.11 Unspecified lump in the right breast, upper outer quadrant
CPT/HCPCS: 76642; 77062; 77066

== ENCOUNTER → 2024-05-04 13:00 | Outpatient (BNV) | payer OTHER, SELFPAY | PROVIDERS: Visit Provider Radiology Diagnostic Radiology | DX: N63.11 Unspecified lump in the right breast, upper outer quadrant (principal); N63.21 Unspecified lump in the left breast, upper outer quadrant | CPT/HCPCS: 76642; 77062; 77066 ==

== ENCOUNTER 2024-05-17 09:07 | Outpatient (AMB) | payer OTHER, SELFPAY ==
--- NOTE | 2024-05-17 09:13 | MHC.OFFVIS ---
Vital Signs 05/17/24 09:14 Height 5 ft 2 in Weight 167 lb 8.821 oz BMI 30.6 BP 127/72 Blood Pressure Location Lt brachial Position Sitting Pulse 64 Intake Visit Reasons: follow up for diag mammo 05/04 Intake Note: Patient is seen in office for us/mm results, following bilateral breast lump. 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 The same findings were noted last year on her examination and subsequent mammogram and ultrasound were performed on 05/28/2023. This revealed no suspicious findings in the region of the palpable abnormality at the upper outer quadrants. There was no mammographic evidence of malignancy (BI-RADS 1). She denies any symptoms in the breast bleeding breast pain, skin change, nipple discharge or arm pain. She denies a previous history of breast cancer or breast surgery. Her family history is negative for breast cancer. She is with 3 sons ages 14, 12 and 8. She reports breast-feeding all 3 children. She denies history of breast trauma, infection or radiation. She returns today following undergoing a repeat mammogram and ultrasound of the bilateral breasts this revealed no findings suspicious for malignancy in either breast. No mammographic or sonographic abnormalities in the region of palpable concern in the bilateral breasts upper outer quadrant were noted (BI-RADS 1 both mammogram and ultrasound). Recommendations for mammogram at the age of 40 or earlier if clinically indicated. Copy of the report was provided to the patient for her records. She reports no new breast symptoms and generally feels well. [facility] Medical History Hypercholesteremia ADHD Seasonal allergies Surgical History History of oral surgery No history of previous surgery Family History Father Heart disease Paternal Grandfather Diabetes mellitus Heart attack Social History Alcohol intake: current Alcohol intake frequency: holidays/special occasions only Patient Tobacco Use Status: Never used Tobacco Sexual orientation: Straight/Heterosexual Gender identity: Female Female Reproductive History Menstrual Age of Menarche: 10 Review of Systems Const All systems reviewed & are unremarkable except as noted in HPI and below Physical Exam Vital Signs: Last Vital Signs Pulse 64 05/17/24 09:14 BP 127/72 05/17/24 09:14 BMI result Body Mass Index 30.6 Const General: cooperative and no acute distress Nutritional Appearance: well nourished Orientation/consciousness: patient oriented x3 Limitations: no limitations HEENT Head: Yes normocephalic and Yes atraumatic Ears: hearing grossly normal bilaterally Chest Other: Exam deferred Resp Effort & Inspection: normal respiratory effort, no audible wheezes, no cough and no respiratory distress Cardio Jugular venous distension: no JVD GI Inspection: Yes normal to inspection Skin Other: Warm, dry, no rash Neuro General: patient oriented x3 Extrem General: Yes no clubbing, cyanosis or edema Assessment & Plan Assessment & Plan (1) Bilateral breast lump: Comment: Soft irregular masses upper outer quadrant both breasts more prominent on left; felt 04/25/24 as well. Code(s): N63.10 - Unspecified lump in the right breast, unspecified quadrant; N63.20 - Unspecified lump in the left breast, unspecified quadrant Category: Medical Plan 33-year-old female patient presenting with possible bilateral upper outer quadrant breast mass noted on recent examination. Patient denies a prior history of breast problems or breast surgery. Her family history is negative for breast cancer. Mammogram 05/28/2023 revealed no suspicious findings in either breast (BI-RADS 1). Previous examination revealed mainly fibrocystic change in the upper outer quadrants with no discrete palpable mass of concern. Evaluation with repeat diagnostic mammogram and ultrasound revealed no suspicious findings in either breast special attention to the upper outer quadrants. I recommended follow-up examination in 6 months document stability. She is welcome to call sooner for any new concerns. Coding Level of Care Code Est Pt Level 3 (79632) Diagnoses Bilateral breast lump N63.10; N63.20
[2024-05-17 09:14] VITALS: BP 127/72; PULSE 64; BMI 30.6
== END 2024-05-17 09:21 | disposition home or self-care (01) ==
PROVIDERS: Visit Provider Surgery
DX: N63.10 Unspecified lump in the right breast, unspecified quadrant (principal); N63.20 Unspecified lump in the left breast, unspecified quadrant
CPT/HCPCS: 99213

== ENCOUNTER → 2024-05-17 09:07 | Outpatient (BNVA) | payer OTHER, SELFPAY | PROVIDERS: Visit Provider Surgery ==

== ENCOUNTER 2024-06-27 09:01 | Outpatient (REF) | payer OTHER, SELFPAY | END 2024-06-27 09:02 | disposition home or self-care (01) | LOC: HO.LNP 09:01 | PROVIDERS: Visit Provider Obstetrics & Gynecology | DX: D06.9 Carcinoma in situ of cervix, unspecified (principal); R87.612 Low grade squamous intraepithelial lesion on cytologic smear of cervix (LGSIL); Z32.02 Encounter for pregnancy test, result negative | CPT/HCPCS: 57454; 88305; 88342; 88360 ==

== ENCOUNTER 2024-06-27 09:01 | Outpatient (AMB) | payer OTHER, SELFPAY ==
--- NOTE | 2024-06-27 09:19 | MHC.OFFVIS ---
Vital Signs 06/27/24 09:20 Height 5 ft 2 in Weight 167 lb 8.821 oz BMI 30.6 Intake Visit Reasons: colpo Curam Developer Required: No Information Interpreted: non-clinical & clinical Php Mysql Developer: Php Mysql Developer Present (Marie DEAN) Accompanied by: Self / Same As Patient Allergies No Known Allergies Allergy (Verified 06/27/24 09:20) Is last menstrual period known: No (mirena) HPI Comments Details: Presenting referred for abnormal Pap smear showing LSIL high-risk HPV positive [facility] Medical History Hypercholesteremia ADHD Seasonal allergies Surgical History (Reviewed 06/27/24 @ 09: by Juan Lion MD) History of oral surgery No history of previous surgery Family History Father Heart disease Paternal Grandfather Diabetes mellitus Heart attack Social History Alcohol intake: current Alcohol intake frequency: holidays/special occasions only Patient Tobacco Use Status: Never used Tobacco Sexual orientation: Straight/Heterosexual Gender identity: Female Female Reproductive History Menstrual Age of Menarche: 10 Physical Exam Vital Signs: BMI result Body Mass Index 30.6 Office Procedures Colposcopy Colposcopy: Pre-Procedure Counseling: Before beginning the procedure, I conducted comprehensive counseling with the patient. We thoroughly discussed the procedure itself, including its details, alternatives, and all associated risks. This included but not limited to the following complications such as bleeding, infection, and injury to the vagina, bladder, and vessels, as well as the potential need for transfusion with all its associated risks. Subsequently, the patient sign the consent. Pap smear result: LSIL. Urine test in office = Negative Procedure: During the procedure, the following steps were performed: A speculum was inserted, and acetic acid was applied. Colposcopy was conducted, allowing visualization of the transformation zone. Acetowhite lesions were identified at the 12+1+3+5+6+7 o'clock position. Cervical biopsies were obtained from the 12+1+3+5+6+7 o'clock position, followed by an endocervical curettage (ECC). Vaginoscopy of the upper vagina revealed no evidence of aceto-white lesions. Hemostasis was achieved using Monsel solution, and the patient tolerated the procedure well. Post-Procedure Instructions: The patient was advised to promptly contact the office or the after hours answering service or go to the emergency room if experiencing a temperature exceeding 100.4?F, abdominal pain, nausea/vomiting, or bleeding. Additionally, the patient was instructed to abstain from vaginal intercourse and bathtub use. The patient confirmed understanding of these instructions. Discharge Instructions: The patient was instructed to schedule a follow-up appointment in 2 weeks for further evaluation and management. Please note that this note was generated using a voice recognition program, and errors may have occurred during supervisor mail carriers. 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 the false positive/negative rate of a Pap smear as a screening test in detecting cervical cancer and the indication for a diagnostic test -colposcopy, biopsy, endocervical curettage. The patient verbalized understanding and agreed with the plan, all questions answered. Colposcopy/biopsy/ECC done, see procedure note Orders: Orders AMB Colposcopy Today R87.612 - Low grade squamous intraepithelial lesion on cytologic smear of cervix (LGSIL) AMB HCG Urine Test Today Z32.02 - Encounter for test, result negative Coding Level of Care Code Procedure Only Diagnoses LGSIL on Pap smear of cervix R87.612 CPT Codes Colposcopy - CPT: 36202-[id number] of cervix including upper vagina with biopsy and ECC ([id number])
[2024-06-27 09:20] VITALS: BMI 30.6
== END 2024-06-27 09:39 | disposition home or self-care (01) ==
PROVIDERS: Visit Provider Obstetrics & Gynecology
DX: R87.612 Low grade squamous intraepithelial lesion on cytologic smear of cervix (LGSIL) (principal)
CPT/HCPCS: 57454

== ENCOUNTER 2024-07-05 11:33 | Outpatient (AMB) | payer OTHER, SELFPAY ==
--- NOTE | 2024-07-05 11:40 | MHC.OFFVIS ---
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 The patient is doing well with no complaints. The pathology showed the following: A. Endocervix, curettage: Superficial fragments of endocervical mucosa within normal limits. B. Cervix, 1 o'clock, biopsy: - High-grade squamous intraepithelial lesion (MARYSOL 2). - Endocervical epithelium within normal limits. C. Cervix, 3 o'clock, biopsy: Inflamed cervical transformation zone mucosa with reactive changes. D. Cervix, 5 o'clock, biopsy: - Small fragment of mildly inflamed endocervical mucosa; otherwise within normal limits. - No squamous epithelium identified. E. Cervix, 6 o'clock, biopsy: - High-grade squamous intraepithelial lesion (MARYSOL 2). - Endocervical epithelium within normal limits. F. Cervix, 7 o'clock, biopsy: Inflamed cervical transformation zone mucosa with reactive changes. G. Cervix, 12 o'clock, biopsy: - High-grade squamous intraepithelial lesion (MARYSOL 2-3). - Endocervical epithelium within normal limits The patient has Mirena IUD in place requesting removal [facility] Medical History Hypercholesteremia ADHD Seasonal allergies Surgical History History of oral surgery No history of previous surgery Family History Father Heart disease Paternal Grandfather Diabetes mellitus Heart attack Social History Alcohol intake: current Alcohol intake frequency: holidays/special occasions only Patient Tobacco Use Status: Never used Tobacco Sexual orientation: Straight/Heterosexual Gender identity: Female Female Reproductive History Menstrual Age of Menarche: 10 Date of last menstrual period: 07/05/20 Total pregnancies: 2 Full term: 2 Review of Systems Card Reports as per HPI and Reports no additional complaints Resp Reports as per HPI and Reports no additional complaints GI Reports as per HPI and Reports no additional complaints Reports as per HPI Physical Exam Vital Signs: Last Vital Signs BP 120/68 07/05/24 11:41 BMI result Body Mass Index 31.8 Const General: cooperative, healthy appearing and comfortable Resp Effort & Inspection: normal respiratory effort Auscultation: clear to auscultation bilaterally Percussion: percussion normal Cardio Palpation: normal PMI Rate: regular rate Rhythm: regular rhythm Heart sounds: no murmurs and no rubs Peripheral pulses: Peripheral pulses 2+ throughout GI Inspection: Yes normal to inspection Palpation (GI): Soft to palpation, nontender, no guarding, not rigid and No hepatosplenomegaly present Percussion: Yes normal to percussion Auscultation: normal bowel sounds Rectal Exam - Female: deferred Assessment & Plan Assessment & Plan (1) 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 Discussed with the patient the sensitivity specificity, positive and negative predictive value in detecting cervical cancer in addition discussed the regression, persistence and progression rates. Addition discussed with the patient the risk of progression to cancer and impact of excision procedure on her future . Recommended excisional procedures, LEEP cone with post cone ECC wih IUD Removal. Discussed with the patient the procedure, its benefits and risks including bleeding, infection, possible need for blood transfusion with all its risk ( HIV, syphilis, Hepatitis, anaphylaxis shock, others..), injury to bladder, rectum, possible need for re-excision or hysterectomy for positive margins, potential need for hysterectomy, possible future negative impact on fertility including ( cervical stenosis, incompetence , increase risk for c section 2ndary to cervical scarring and failure of dilatation). ). Also discussed with the patient risk of after a Mirena IUD removal, the patient is not sexually active at the moment and would think about different options of treatment. In addition discussed with the patient the options of anesthesia either paracervical block versus IV sedation/MAC, prefers to proceed with IV sedation/MAC . All questions answered, the patient verbalized understanding and signed the consent. Instructions given to patient to schedule a postop appointment. 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
[2024-07-05 11:41] VITALS: BP 120/68; BMI 31.8
== END 2024-07-05 12:01 | disposition home or self-care (01) ==
LOC: HO.HWS 11:33
PROVIDERS: Visit Provider Obstetrics & Gynecology
DX: D06.9 Carcinoma in situ of cervix, unspecified (principal)
CPT/HCPCS: 99213

== ENCOUNTER → 2024-07-05 11:33 | Outpatient (BNVA) | payer OTHER, SELFPAY | PROVIDERS: Visit Provider Obstetrics & Gynecology ==

== ENCOUNTER → 2024-07-11 11:23 | Day surgery (SDC) | payer OTHER, SELFPAY ==
[2024-07-11 11:41] VITALS: BMI 30.5
--- NOTE | 2024-07-11 11:47 | PC.NURSE ---
patient ate a milk dud candy accidentally not thinking around 0830am thismorning. to be rescheduled. aware of plan of care.
[2024-07-11 11:48] LABS: UPreg QC Valid YES; Urine Pregnancy NEGATIVE (NEGATIVE)
== END ==
PROVIDERS: PCP Nurse Practitioner Family; Visit Provider Obstetrics & Gynecology
DX: D06.9 Carcinoma in situ of cervix, unspecified (principal); Z53.8 Procedure and treatment not carried out for other reasons
CPT/HCPCS: 81025; J2003; J2795

== ENCOUNTER 2024-07-14 12:43 | Day surgery (SDC) | payer OTHER, SELFPAY ==
[2024-07-14 13:17] LABS: UPreg QC Valid YES; Urine Pregnancy NEGATIVE (NEGATIVE)
[2024-07-14] MEDS: Lactated Ringers 1,000 ML 100 ML IVCONT (13:18)
[2024-07-14 13:25] VITALS: BP 129/91; PULSE 73; RESP 18; TEMP 36.6; O2SAT 98
--- NOTE | 2024-07-14 14:10 | P.CONAN_ITS ---
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 (Acute) LGSIL on Pap smear of cervix (Acute) Bacterial vaginosis (Acute) Ovarian cyst, complex (Acute) Hx of abnormal cervical Pap smear (Acute) Pelvic pain (Acute) Bilateral breast lump (Acute) Presence of 52 mg levonorgestrel-releasing intrauterine device (IUD) (Acute) Surveillance for control, intrauterine device (Acute) Encounter for IUD insertion (Acute) Screen for sexually transmitted diseases (Acute) Health education (Acute) Family planning (Acute) Encounter for IUD removal (Acute) Bacterial vaginosis (Acute) Vaginal discharge (Acute) Well woman exam with routine gynecological exam (Acute) Past Medical History Medical History (Updated 07/05/24 @ 12:00 by Juan Lion MD) Hypercholesteremia ADHD Seasonal allergies Family History Family History Father Heart disease Paternal Grandfather Diabetes mellitus Heart attack Surgical History Surgical History (Updated 07/11/24 @ 11:41 by Abbie Palmer RN) History of oral surgery Social History Social History Are you a primary district manager primary care sales to a significant other at home: No Do you presently have visiting nurse or other home services: No Alcohol intake: current Alcohol intake frequency: holidays/special occasions only Patient Tobacco Use Status: Never used Tobacco Have you been hit, kicked, punched, or otherwise hurt by someone within the past year? If so, by whom?: No Are you DNR?: No Advance Directives: No Advance Directives Information Provided: Yes Recently lost weight without trying: No Nutrition Risks: No Nutritional Risk FDLMP: I dont get one Sexual orientation: Straight/Heterosexual Gender identity: Female Meds Allergies Allergy/AdvReac Type Severity Reaction Status Date / Time No Known Allergies Allergy Verified 07/14/24 13:28 Home Medications ?Medication ?Instructions ?Recorded ?Confirmed ?Last Taken ?Type levonorgestrel 21 mcg/24 hr (up to intrauterine 04/20/23 05/17/24 Unknown History 8 years) 52 mg intrauterine device (Mirena) Assessment and Plan Assessment Anesthesia Assessment: Chart Reviewed Documented by User: Tia Joseph DO 07/14/24 14:13 [facility] Past Medical History Medical History (Updated 07/05/24 @ 12:00 by Juan Lion MD) Hypercholesteremia ADHD Seasonal allergies Family History Family History Father Heart disease Paternal Grandfather Diabetes mellitus Heart attack Family history of problems with anesthesia: No Surgical History Surgical History (Updated 07/11/24 @ 11:41 by Abbie Palmer RN) History of oral surgery History of Problems with Anesthesia: No Social History Social History Are you a primary district manager primary care sales to a significant other at home: No Do you presently have visiting nurse or other home services: No Alcohol intake: current Alcohol intake frequency: holidays/special occasions only Patient Tobacco Use Status: Never used Tobacco Have you been hit, kicked, punched, or otherwise hurt by someone within the past year? If so, by whom?: No Are you DNR?: No Advance Directives: No Advance Directives Information Provided: Yes Recently lost weight without trying: No Nutrition Risks: No Nutritional Risk FDLMP: I dont get one Sexual orientation: Straight/Heterosexual Gender identity: Female Meds Allergies Allergy/AdvReac Type Severity Reaction Status Date / Time No Known Allergies Allergy Verified 07/14/24 13:28 Home Medications ?Medication ?Instructions ?Recorded ?Confirmed ?Last Taken ?Type levonorgestrel 21 mcg/24 hr (up to intrauterine 04/20/23 05/17/24 Unknown History 8 years) 52 mg intrauterine device (Mirena) Exam Exam Date and Time: 07/14/24 1410 Height,Weight and Vital Signs: Height 5 ft 2 in Weight 74.389 kg Vital Signs Temperature 97.9 F 07/14/24 13:25 Pulse Rate 73 07/14/24 13:25 Respiratory Rate 18 07/14/24 13:25 Blood Pressure 129/91 H 07/14/24 13:25 Pulse Oximetry 98 07/14/24 13:25 Oxygen Delivery Method Room Air 07/14/24 13:25 Temperature 97.9 F 07/14/24 13:25 Pulse Rate 73 07/14/24 13:25 Respiratory Rate 18 07/14/24 13:25 Blood Pressure 129/91 H 07/14/24 13:25 Pulse Oximetry 98 07/14/24 13:25 Oxygen Delivery Method Room Air 07/14/24 13:25 Airway Mallampati Class: I TM Dist: >3cm Neck ROM: Full Loose/Missing/Broken Teeth: No (patient denies any loose or broken teeth) Heart: S1S2 Lungs: CTAB Assessment and Plan Assessment Anesthesia Assessment: Anesthesia Plan Discussed and Chart Reviewed Final Anesthetic Review Family History of Problems with Anesthesia: No History of Problems with Anesthesia: No NPO: Yes ASA Class: II Final Preanesthetic Review: No Changes in Pt Med Stat, Meds/Allgs Chart Reviewed, Consent Obtained/Reviewed and Anes Risks/Benef Reviewed Patient Risk: Low Procedure Risk: Low Anesthetic Plan Anesthetic Plan: GA and Agree w/ Assess. and Plan Disposition: Standard PACU
--- NOTE | 2024-07-14 14:45 | PC.NURSE ---
report given to donald vidal rn. aware that drGerardo needs to complete 24 hour. order is in and correct.
--- NOTE | 2024-07-14 14:49 | MHC.SHP ---
Pre-Procedural Eval Section A - 24 Hr Update-Section A only Date of Service: 07/14/24 The patient is an INPATIENT: No Changes since office visit: No Cold of Flu in the past 2 weeks, No New Medical Problems, No Changes in Medication and No Patient answered all questions The patient has been examined within 24 hours of the surgical procedure. The History & Physical has been completed within 30 days and I have reviewed it.: Yes Section B - Complete if H&P > 30 days Chief Complaint: Carcinoma in situ of cervix, unspecified Allergies: Allergies Allergy/AdvReac Type Severity Reaction Status Date / Time No Known Allergies Allergy Verified 07/14/24 13:28 Plan Diagnosis/Plan: Unchanged I have reviewed the history and physical and performed a pertinent physical examination on my patient. No changes have occurred unless specified. Time Spent With Patient Time: Total time managing care of this patient today ____ minutes.
--- NOTE | 2024-07-14 14:49 | PC.NURSE ---
report given to pennie stark and patient out at [id number].
--- NOTE | 2024-07-14 15:17 | PM.OP ---
Brief Operative Note Date of Service: 07/14/24 Pre-op diagnosis: MARYSOL 2-3 Post-op diagnosis: same Procedure: LEEP CONE with post CONE ECC Surgeon: Juan Lion MD Anesthesia: GLMA and other (Paracervical block) Was an Application Internship used for this Procedure?: No Estimated blood loss (mL): 0 Pathology: other (anterior & posterior cervical lip, endocervix, Post cone ECC) Condition: stable Disposition: other (Home)
--- NOTE | 2024-07-14 15:18 | W.PM.OPN ---
Operative Note Operative Note Date of Service: 08/17/20 Narrative: Pre op diagnosis: MARYSOL 2-3 Operation: Colposcopy, Loop electrical excision procedure excision of anterior and posterior cervical lip, endocervical excision, post cone ECC Postop diagnosis: the same Quantitative blood loss: 50 cc Surgeon: Juan Lion MD, FACOG Hospital Nurse Liaison: None Pathology: Anterior and posterior cervical lip, endocervix, endo cervical curettage Complications: none Anesthesia: GLMA and Para cervical block Procedure: The patient was put in a dorsal lithotomy position, scrubbed and draped in the usual sterile fashion. A speculum was inserted inside the patient's vagina. The cervix is assessed using the colposcope with acetic acid , the lesions were seen, and at least 1 cm of the squamocolumnar junction was observed. 20 x 5 mm size loop was selected based upon the diameter of the lesion. Lugol solution was used to outline the lesions and area of the transformation zone order to be removed 10 cc of xylocaine with epinephrine were injected submucosally into the surface of the cervix (ectocervix) at the 3, 6, 9, and 12 o'clock positions. The electrosurgical generator is set at 30 to 40 avila on blend 1. The loop is carefully passed simultaneously around and under the transformation zone, in order to ensure excising it making sure the lesion is at least 5 mm far from the specimen margins . The loop was allowed to glide through the cervix from one side to the other, allowing the cutting current to divide the tissue. Anterior cervical lip and posterior cervical lip were excised, this was followed by the endocervical and a post cone endocervical curettage. Hemostasis is obtained with a Ball electrode or regular tip cautery. At the end, Monsel's solution was applied to the cone bed. The patient tolerated the procedure well and, all instruments were taken out of the patient vaginal cavity, and the patient was transferred to the PACU in stable condition.
[2024-07-14 15:23] VITALS: BP 108/52; PULSE 62; RESP 16; TEMP 36.3; O2SAT 98
[2024-07-14 15:28] VITALS: BP 106/54; PULSE 65; RESP 16; O2SAT 98
[2024-07-14 15:33] VITALS: BP 109/57; O2SAT 98
[2024-07-14 15:38] VITALS: BP 117/56; PULSE 65; RESP 16; O2SAT 98
[2024-07-14 15:53] VITALS: BP 109/62; PULSE 72; RESP 18; TEMP 36.4; O2SAT 97
== END 2024-07-14 16:04 | disposition home or self-care (01) ==
PROVIDERS: Nurse Practitioner; PCP Nurse Practitioner Family; Visit Provider Obstetrics & Gynecology
PROC: 0UBC7ZZ Excision of Cervix, Via Natural or Artificial Opening (ICD-10-PCS; CPT 57522; principal; 2024-07-14 14:30)
DX: N87.1 Moderate cervical dysplasia (principal); Z97.5 Presence of (intrauterine) contraceptive device; E78.00 Pure hypercholesterolemia, unspecified; J30.2 Other seasonal allergic rhinitis; F90.9 Attention-deficit hyperactivity disorder, unspecified type
CPT/HCPCS: 57461; 58301; 81025; 88305; 88307; J1100; J1885; J2003; J2004; J2250; J2405; J2704; J3010

== ENCOUNTER → 2024-07-14 12:43 | Outpatient (BNV) | payer OTHER, SELFPAY | PROVIDERS: PCP Nurse Practitioner Family; Visit Provider Obstetrics & Gynecology | DX: D06.9 Carcinoma in situ of cervix, unspecified (principal) | CPT/HCPCS: 57461 ==

== ENCOUNTER 2024-07-25 14:38 | Outpatient (AMB) | payer OTHER, SELFPAY ==
[2024-07-25 14:43] VITALS: BP 109/62
--- NOTE | 2024-07-25 14:43 | A.OFFVIS_ITS ---
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 The patient has no complaints and is interested in discussing different options of control. The patient pathology showed the following: A. Cervix, anterior lip, conization: -High grade squamous intraepithelial lesion (moderate dysplasia, MARYSOL II), involving endocervical glands. -Ectocervical margin: Free of dysplasia. -Endocervical margin: Free of dysplasia. -Radial (deep stromal) margin: Free of dysplasia. -Biopsy site changes present. B. Cervix, posterior lip, conization: -Squamous and endocervical glandular mucosa with inflammation and reactive changes; negative for dysplasia. C. Endocervix, conization: -High grade squamous intraepithelial lesion (moderate dysplasia, MARYSOL II), involving endocervical glands. -Ectocervical margin: Appears free of dysplasia, but close. -Endocervical margin: Free of dysplasia. -Radial (deep stromal) margin: Free of dysplasia. -Biopsy site changes present. D. Endocervix, post cone curettage: Endocervical glandular mucosa with focal squamous metaplasia; negative for dysplasia. [facility] Medical History Hypercholesteremia ADHD Seasonal allergies Surgical History History of oral surgery Family History Father Heart disease Paternal Grandfather Diabetes mellitus Heart attack Social History Are you a primary rn palliative care to a significant other at home: No Do you presently have visiting nurse or other home services: No Alcohol intake: current Alcohol intake frequency: holidays/special occasions only Patient Tobacco Use Status: Never used Tobacco Sexual orientation: Straight/Heterosexual Gender identity: Female Female Reproductive History Menstrual Age of Menarche: 10 Review of Systems Const All systems reviewed & are unremarkable except as noted in HPI and below Reports as per HPI and Reports no additional complaints GI Reports no additional complaints Reports no additional complaints Physical Exam Vital Signs: Last Vital Signs BP 109/62 07/25/24 14:43 Assessment & Plan Assessment & Plan (1) MARYSOL II (cervical intraepithelial neoplasia II): Comment: Status post LEEP cone with post cone ECC Code(s): N87.1 - Moderate cervical dysplasia Category: Medical Plan: Discussed with the patient the procedure and the pathology of the LEEP showing MARYSOL 2 with negative margins, negative post cone ECC. Instructions given to the patient to schedule an HPV based screening in 6 months, if normal then co testing Q year x 3 , if wnl cotest q3 x 25 years check the results and treat accordingly. All questions answered patient verbalized understanding. (2) Family planning: Code(s): Z30.09 - Encounter for other general counseling and advice on contraception Category: Social Hx Plan: Discussed with the patient the different options of control including control pills/Nuvaring, DMPA, IUD (Mirena, Paraguard), sterilization. All the pros, cons, risks and benefits of each were discussed with the patient. The patient decided to go ahead with Nuvaring so a more detailed discussion re: bcp including mechanism of action, benefits ( Regular menses, less dysmenorrhea, less risk of ovarian cancer, ...), risks ( DVT, PE, Strokes, AL, increased breast ca, others). Instructions were given to use a backup method for contraception x 1st 2 week. Nuvaring x 3 weeks then 1 week off. Instructions given to the pt to discard it if out for >4 hours and start a new ring with 2 weeks back up method for contraception and to schedule a 3 month follow-up appointment. Medications: New etonogestrel-ethinyl estradiol 0.12-0.015 mg/24 hr (NuvaRing) leave in place for 3 weeks of a 4-week cycle 1 vag ring vaginal Q4W 3 ea 0RF Coding Level of Care Code Est Pt Level 3 (09548) Diagnoses MARYSOL II (cervical intraepithelial neoplasia II) N87.1 Family planning Z30.09
== END 2024-07-25 15:08 | disposition home or self-care (01) ==
LOC: HO.HWS 14:38
PROVIDERS: PCP Nurse Practitioner Family; Visit Provider Obstetrics & Gynecology
DX: N87.1 Moderate cervical dysplasia (principal); Z30.09 Encounter for other general counseling and advice on contraception
CPT/HCPCS: 99213

== ENCOUNTER 2024-10-25 12:54 | Outpatient (AMB) | payer OTHER, SELFPAY ==
--- NOTE | 2024-10-25 13:01 | MHC.OFFVIS ---
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 The patient has no complaints, she is using the vaginal ring no problems, her menses are regular and light PFSH Medical History Hypercholesteremia ADHD Seasonal allergies Surgical History History of oral surgery Family History Father Heart disease Paternal Grandfather Diabetes mellitus Heart attack Social History Are you a primary care administrative tech to a significant other at home: No Do you presently have visiting nurse or other home services: No Alcohol intake: current Alcohol intake frequency: holidays/special occasions only Patient Tobacco Use Status: Never used Tobacco Sexual orientation: Straight/Heterosexual Gender identity: Female Female Reproductive History Menstrual Age of Menarche: 10 Duration of menses: <3 days Date of last menstrual period: 10/21/24 control method: other (Nuvaring) Review of Systems Const All systems reviewed & are unremarkable except as noted in HPI and below Reports as per HPI and Reports no additional complaints GI Reports no additional complaints Reports no additional complaints Assessment & Plan Assessment & Plan (1) Contraceptive management: Code(s): Z30.9 - Encounter for contraceptive management, unspecified Category: Medical Plan: NuvaRing refill sent to patient's pharmacy, instructions given the patient to call in case of abnormal uterine bleeding or any other concerns. All questions answered, the patient verbalized understanding. Medications: Refilled etonogestrel-ethinyl estradiol 0.12-0.015 mg/24 hr (NuvaRing) leave in place for 3 weeks of a 4-week cycle 1 vag ring vaginal Q4W 3 ea 3RF Coding Level of Care Code Est Pt Level 3 (30017) Diagnoses Contraceptive management Z30.9
[2024-10-25 13:23] VITALS: BP 114/72
--- OUTSIDE RECORDS SUMMARY | 2024-10-25 13:44 | XMS_ITS | Patient Health Record ---
Author Organization Tom Salazar MD Address [address] [place] [phone] Care Team Providers Care Branding Specialist Name Role Phone LeighLaila Primary Care Provider [phone] Tom Salazar Unavailable [phone] Allergies No Known Allergies Results Component Value Reference Range Notes CBC With Differential/Platel [id number] Reviewed date:01/03/2024 08:07:50 AM Interpretation: Performing Lab:[facility] [place], [address] [place] [address], [place], Phone - [phone], Director - Aurea Notes/Report: WBC 7.0 3.4-10.8 x10E3/uL RBC 5.17 3.77-5.28 x10E6/uL Hemoglobin 15.3 11.1-15.9 g/dL Hematocrit 46.4 34.0-46.6 % MCV 90 79-97 fL MCH 29.6 26.6-33.0 pg MCHC 33.0 31.5-35.7 g/dL RDW 12.0 11.7-15.4 % Platelets 239 150-450 x10E3/uL Neutrophils 67 Not Estab. % Lymphs 27 Not Estab. % Monocytes 4 Not Estab. % Eos 2 Not Estab. % Basos 0 Not Estab. % Neutrophils (Absolute) 4.7 1.4-7.0 x10E3/uL Lymphs (Absolute) 1.9 0.7-3.1 x10E3/uL Monocytes(Absolute) 0.3 0.1-0.9 x10E3/uL Eos (Absolute) 0.1 0.0-0.4 x10E3/uL Baso (Absolute) 0.0 0.0-0.2 x10E3/uL Immature Granulocytes 0 Not Estab. % Immature Grans (Abs) 0.0 0.0-0.1 x10E3/uL Sedimentation Rate-Westergre [id number] Reviewed date:01/03/2024 08:07:50 AM Interpretation: Performing Lab:[facility] [place], [address] [place] [address], Phone - [phone], Director - MSChuyita Notes/Report: Sedimentation Rate-Westergren 4 0-32 mm/hr C-Reactive Protein, Quant-00 [id number] Reviewed date:01/03/2024 08:07:50 AM Interpretation: Performing Lab:[facility] [place], [address] [place] [address], Phone - [phone], Director - Guy Notes/Report: C-Reactive Protein, Quant <1 0-10 mg/L RUPERT by IFA Rfx Titer/Pattern -[id number] Reviewed date:01/03/2024 08:07:50 AM Interpretation: Performing Lab:[facility] [place], [address] [place] [address], Phone - [phone], Director - Aurea Notes/Report: RUPERT by IFA Rfx Titer/Pattern Positive Negative <1:80 Borderline 1:80 Positive >1:80 Speckled Pattern 1:80 ICAP nomenc lature: AC-2,4,5,29 Note: Pattern Potential Disease Association Homogeneous Systemic Lupus Erythematosus, Drug Induced Systemic Lupus Erythematosus, Chronic Autoimmune hepatitis, Juvenile Idiopathic Arthritis Speckled Sjogren Syndrome, Systemic Lupus Erythematosus, Subacute Cutaneous Lupus, Lupus, Congenital Heart Block, Mixed Connective Tissue Disease, Scleroderma-diffuse, Scleroderma-Autoimmune Myositis Overlap Syndrome, Systemic Lupus Erythematosus-Scleroderm a-Autoimmune Myositis Overlap Syndrome, Systemic Autoimmune Rheumatic Disease, Undifferentiated Connective Tissue Disease Nucleolar Systemic Sclerosis, Scleroderma-Autoimmune Myositis Overlap Syndrome, Sjogren Syndrome, Raynaud phenomenon, Pulmonary Arterial Hypertension, Systemic Autoimmune Rheumatic Disease, Cancer Centromere Scleroderma-CREST, Limited Cutaneous SSc, Raynaud's Phenomenon, Primary Biliary Cholangitis Nuclear Dot Primary Biliary Cholangitis Nuclear Primary Biliary Cholangitis, Autoimmune Membrane Hepatitis/Liver disease, Systemic Autoimmune Rheumatic Disease, Autoimmune Cytopenias, Linear Scleroderma, Antiphospholipid Syndrome CR Spine Thoracic 3 Views Reviewed date:05/26/2024 01:31:41 PM Interpretation: Performing Lab: Notes/Report: CR Spine Lumbar 2 or 3 Views Reviewed date:05/26/2024 01:31:10 PM Interpretation: Performing Lab: Notes/Report: Lumbar Spine 2 or 3 Views Reviewed date:01/03/2024 08:07:50 AM Interpretation: Performing Lab: Notes/Report: Lumbar Spine 2 or 3 Views Reason: lumbago with sciatica COMPARISON: None. FINDINGS: No bone lesions or fractures. Normal disc configuration. Normal alignment. No spondylolysis or spondylolisthesis. Normal soft tissues. IMPRESSION: Normal lumbar spine. WSN: [id number] Ordering Physician: Laila Leigh Dictated By: Jm Foster MD Lumbar Spine 2 or 3 Views Reason: lumbago with sciatica COMPARISON: None. FINDINGS: No bone lesions or fractures. Normal disc configuration. Normal alignment. No spondylolysis or spondylolisthesis. Normal soft tissues. IMPRESSION: Normal lumbar spine. WSN: [id number] Ordering Physician: Laila Leigh Thoracic Spine 3 Views Reviewed date:01/03/2024 08:07:50 AM Interpretation: Performing Lab: Notes/Report: Thoracic Spine 3 Views Reason: lumbago with sciatica COMPARISON: None. FINDINGS: No bone lesions or fractures. Normal disc configuration. Normal soft tissues. IMPRESSION: No acute abnormality. WSN: [id number] Ordering Physician: Laila Leigh Dictated By: Mili Tran MD Thoracic Spine 3 Views Reason: lumbago with sciatica COMPARISON: None. FINDINGS: No bone lesions or fractures. Normal disc configuration. Normal soft tissues. IMPRESSION: No acute abnormality. WSN: [id number] Ordering Physician: Laila Leigh PDF Report Reviewed date:02/16/2024 09:06:15 AM Interpretation: Performing Lab:[facility] [place], [address] [place] [address], Phone - [phone], Director - Aurea Notes/Report: PDF Report Reviewed date:01/03/2024 08:07:50 AM Interpretation: Performing Lab:[facility] [place], [address] [place] [address], Phone - [phone], Director - Aurea Notes/Report: PDF Report Reviewed date:02/16/2024 09:06:15 AM Interpretation: Performing Lab:[facility], [address] [place] [address], Phone - [phone], Director - Aretha Notes/Report: Clinical Information:SRC: [id number] No. of containers..01 ThinPrep Vial US Pelvic Transabdominal Reviewed date:02/16/2024 09:06:15 AM Interpretation: Performing Lab: Notes/Report: US Pelvic Transabdominal, US Pelvic Transvaginal Reason: E28.2 POLYCYSTIC OVARIAN SYNDROME; Clinical Question(s): Other: COMPARISON: None TECHNIQUE: Transabdominal and transvaginal ultrasound with grayscale and color Doppler analysis. FINDINGS: UTERUS: Size: 8.6 x 4.0 x 6.5 cm, volume 118.5 cc. Endometrial thickness: 0.7 cm. Morphology: Normal configuration and echotexture. Well-positioned IUD. RIGHT OVARY: Size: 4.3 x 1.9 x 1.8 cm, volume 8.0 cc. Morphology: Normal echotexture. No pathologic cysts or mass. Normal color Doppler appearance. LEFT OVARY: Size: 2.9 x 1.4 x 2.9 cm, volume 6.1 cc. Morphology: Normal echotexture. No pathologic cysts or mass. Normal color Doppler appearance. ADNEXA: Normal. No adnexal masses or fluid collections. IMPRESSION: Well-positioned IUD. Otherwise unremarkable uterus and ovaries. WSN: [id number] Ordering Physician: Tom Salazar Dictated By: Chris Gonzalez MD US Pelvic Transabdominal, US Pelvic Transvaginal Reason: E28.2 POLYCYSTIC OVARIAN SYNDROME; Clinical Question(s): Other: COMPARISON: None TECHNIQUE: Transabdominal and transvaginal ultrasound with grayscale and color Doppler analysis. FINDINGS: UTERUS: Size: 8.6 x 4.0 x 6. 5 cm, volume 118.5 cc. Endometrial thicknes s: 0.7 cm. Morphology: Normal configuration and echotexture. Well-positioned IUD. RIGHT OVARY: Size: 4.3 x 1.9 x 1. 8 cm, volume 8.0 cc. Morphology: Normal echotexture. No pathologic cysts or mass. Normal color Doppler appearance. LEFT OVARY: Size: 2.9 x 1.4 x 2. 9 cm, volume 6.1 cc. Morphology: Normal echotexture. No pathologic cysts or mass. Normal color Doppler appearance. ADNEXA: Normal. No adnexal masses or fluid collections. IMPRESSION: Well-positioned IUD. Otherwise unremarkable uterus and ovaries. WSN: [id number] Ordering Physician: Tom Salazar US Pelvic Transvaginal Reviewed date:02/16/2024 09:06:15 AM Interpretation: Performing Lab: Notes/Report: US Pelvic Transabdominal, US Pelvic Transvaginal Reason: E28.2 POLYCYSTIC OVARIAN SYNDROME; Clinical Question(s): Other: COMPARISON: None TECHNIQUE: Transabdominal and transvaginal ultrasound with grayscale and color Doppler analysis. FINDINGS: UTERUS: Size: 8.6 x 4.0 x 6.5 cm, volume 118.5 cc. Endometrial thickness: 0.7 cm. Morphology: Normal configuration and echotexture. Well-positioned IUD. RIGHT OVARY: Size: 4.3 x 1.9 x 1.8 cm, volume 8.0 cc. Morphology: Normal echotexture. No pathologic cysts or mass. Normal color Doppler appearance. LEFT OVARY: Size: 2.9 x 1.4 x 2.9 cm, volume 6.1 cc. Morphology: Normal echotexture. No pathologic cysts or mass. Normal color Doppler appearance. ADNEXA: Normal. No adnexal masses or fluid collections. IMPRESSION: Well-positioned IUD. Otherwise unremarkable uterus and ovaries. WSN: [id number] Ordering Physician: Tom Salazar Dictated By: Chris Gonzalez MD US Pelvic Transabdominal, US Pelvic Transvaginal Reason: E28.2 POLYCYSTIC OVARIAN SYNDROME; Clinical Question(s): Other: COMPARISON: None TECHNIQUE: Transabdominal and transvaginal ultrasound with grayscale and color Doppler analysis. FINDINGS: UTERUS: Size: 8.6 x 4.0 x 6. 5 cm, volume 118.5 cc. Endometrial thicknes s: 0.7 cm. Morphology: Normal configuration and echotexture. Well-positioned IUD. RIGHT OVARY: Size: 4.3 x 1.9 x 1. 8 cm, volume 8.0 cc. Morphology: Normal echotexture. No pathologic cysts or mass. Normal color Doppler appearance. LEFT OVARY: Size: 2.9 x 1.4 x 2. 9 cm, volume 6.1 cc. Morphology: Normal echotexture. No pathologic cysts or mass. Normal color Doppler appearance. ADNEXA: Normal. No adnexal masses or fluid collections. IMPRESSION: Well-positioned IUD. Otherwise unremarkable uterus and ovaries. WSN: [id number] Ordering Physician: Tom Salazar Testosterone-[id number] Reviewed date:02/16/2024 09:06:16 AM Interpretation: Performing Lab:[facility] [place], [address] [place] [address], Phone - [phone], Director - Aurea Notes/Report: Testosterone 48 8-60 ng/dL Luteinizing Hormone(LH)-0042 83 Reviewed date:02/16/2024 09:06:16 AM Interpretation: Performing Lab:[facility] [place] [facility], Phone - [phone], Director Vasiliy Villar Notes/Report: LH 11.4 Adult Female Range Follicular phase 2.4 - 12.6 Ovulation phase 14.0 - 95.6 Luteal phase 1.0 - 11.4 Postmenopausal 7.7 - 58.5 FSH-[id number] Reviewed date:02/16/2024 09:06:16 AM Interpretation: Performing Lab:[facility] [place] [facility], Phone - [phone], Director Vasiliy Villar Notes/Report: FSH 4.5 Adult Female Range Follicular phase 3.5 - 12.5 Ovulation phase 4.7 - 21.5 Luteal phase 1.7 - 7.7 Postmenopausal 25.8 - 134.8 Progesterone-[id number] Reviewed date:02/16/2024 09:06:16 AM Interpretation: Performing Lab:[facility] [address] [place] [address], Phone - [phone], Director Vasiliy Villar Notes/Report: Progesterone 1.0 Follicular phase 0.1 - 0.9 Luteal phase 1.8 - 23.9 Ovulation phase 0.1 - 12.0 First trimester 11.0 - 44.3 Second trimester 25.4 - 83.3 Third trimester 58.7 - 214.0 Postmenopausal 0.0 - 0.1 Prolactin-[id number] Reviewed date:02/16/2024 09:06:16 AM Interpretation: Performing Lab:[facility] [address] [place] [address], Phone - [phone], Director Vasiliy Villar Notes/Report: Prolactin 8.2 4.8-33.4 ng/mL Estrogens, Total-[id number] Reviewed date:02/16/2024 09:06:16 AM Interpretation: Performing Lab:[facility] [place] [address] [place] [address], Phone - [phone], Director Vasiliy Villar Notes/Report: Estrogens, Total 276 Prepubertal < 40 Female Cycle: 1-10 Days 16 - 328 11-20 Days 34 - 501 21-30 Days 48 - 350 Post-Menopausal 40 - 244 HCV Antibody RFX to Quant PC [id number] Reviewed date:02/16/2024 09:06:16 AM Interpretation: Performing Lab:[facility] [address] [place] [address], Phone - [phone], Director - Aurea Notes/Report: HCV Ab Non Reactive Non Reactive Interpretation: Not infected with HCV unless early or acute infection is suspected (which may be delayed in an immunocompromised individual), or other evidence exists to indicate HCV infection. Comp. Metabolic Panel ([id number] Reviewed date:02/16/2024 09:06:15 AM Interpretation: Performing Lab:[facility], [address] [place] [address], Phone - [phone], Director - Aurea Notes/Report: Glucose 81 70-99 mg/dL BUN 19 6-20 mg/dL Creatinine 0.77 0.57-1.00 mg/dL eGFR 103 >59 mL/min/1.73 BUN/Creatinine Ratio 25 9-23 Sodium 140 134-144 mmol/L Potassium 4.4 3.5-5.2 mmol/L Chloride 104 96-106 mmol/L Carbon Dioxide, Total 21 20-29 mmol/L Calcium 9.4 8.7-10.2 mg/dL Protein, Total 6.8 6.0-8.5 g/dL Albumin 4.4 3.9-4.9 g/dL Globulin, Total 2.4 1.5-4.5 g/dL A/G Ratio 1.8 1.2-2.2 Bilirubin, Total 0.4 0.0-1.2 mg/dL Alkaline Phosphatase 81 44-121 IU/L AST (SGOT) 17 0-40 IU/L ALT (SGPT) 20 0-32 IU/L UA/M w/rflx Culture, Routine -[id number] Reviewed date:02/16/2024 09:06:15 AM Interpretation: Performing [facility], [address] [place] [address], Phone - [phone], Director - MDJoy Notes/Report: Specific [place] 1.015 1.005-1.030 pH 7.0 5.0-7.5 Urine-Color Yellow Yellow Appearance Clear Clear WBC Esterase Negative Negative Protein Negative Negative/Trace Glucose Negative Negative Ketones Negative Negative Occult Blood Negative Negative Bilirubin Negative Negative Urobilinogen,Semi-Qn 0.2 0.2-1.0 mg/dL Nitrite, Urine Negative Negative Microscopic Examination Microscopic follows if indicated. Microscopic Examination See below: Microscopic was indicated and was performed. Urinalysis Reflex This speci men will not reflex to a Urine Culture. WBC None seen 0 - 5 /hpf RBC 0-2 0 - 2 /hpf Epithelial Cells (non renal) None seen 0 - 10 /hpf Casts None seen None seen /lpf Bacteria None seen None seen/Few TSH reflex to [id number] Reviewed date:02/16/2024 09:06:15 AM Interpretation: Performing Lab:[facility] [place], [address] [facility], [place], Phone - [phone], Director - [facility] Notes/Report: TSH 1.760 0.450-4.500 uIU/mL Anti-Mullerian Hormone (AMH) -[id number] Reviewed date:02/16/2024 09:06:15 AM Interpretation: Performing Lab:[facility] [place], [address] [facility], [place], Phone - [phone], Director - [facility] Notes/Report: Anti-Mullerian Hormone (AMH) 4.92 For assays employing antibodies, the possibility exists for interference by heterophile antibodies in the samples.1 1.Serge Bailey Interferences in Immunoassays - still a threat. Clin. Chem. 2000; 46: 8731-3928. This test was developed and its performance characteristics determined by [employer]. It has not been cleared or approved by the Food and Drug Administration. Reference Range: Females 31 - 35y: 0.66 - 8.75 Median 3.00 AMH concentrations of >= 1.06 ng/mL is correlated with a better response to ovarian stimulation, produced more retrievable oocytes and higher odds of live according to Gleicher et al. Fertility and Sterility. 2010: 94:7512-1006. The current AMH test method correlates with the study method with a slope of 0.94. Females at risk of ovarian hyperstimulation syndrome or polycystic ovarian syndrome (PCOS) may exhibit elevated serum AMH concentrations. AMH levels from PCOS patients may be 2 to 5 fold higher than age-appropriate reference interval values. Granulosa cell tumors of the ovary may secrete AMH along with other tumor markers. Elevated AMH is not specific for malignancy, and the assay should not be used exclusively to diagnose or exclude an AMH-secreting ovarian tumor. Thin Prep-IGP,CtNg,rfxAptHPV all,,[id number] Reviewed date:02/16/2024 09:06:15 AM Interpretation: Performing Lab:[facility], [address] [facility], Phone - [phone], Director - [facility] Notes/Report: Clinical Information:SRC: [id number] No. of containers..01 ThinPrep Vial Clinical Information:SRC: [id number] No. of containers..01 ThinPrep Vial DIAGNOSIS: EPITHELIAL CELL ABNORMALITY. LOW GRADE SQUAMOUS INTRAEPITHELIAL LESION (LSIL). Specimen adequacy: Satisfact ory for evaluation. No endocervical component is identified. Clinician provided ICD10: Z12.4 Performed by: Kelsey yin, Unix Analyst (ASCP) Electronically signed by: Margo Vega MD, Pathologist . . Pathologist provided ICD10: R87.612 Note: The Pap smear is a screening test designed to aid in the detection of premalignant and malignant conditions of the uterine cervix. It is not a diagnostic procedure and should not be used as the sole means of detecting cervical cancer. Both false-positive and false-negative reports do occur. . Test Methodology: This liquid based ThinPrep(R) pap test was screened with the use of an image guided system. . See below for HPV testing results. . Chlamydia, Nuc. Acid Amp Negative Negative Gonococcus, Nuc. Acid Amp Negative Negative HPV Aptima Positive Negative This nucleic acid amplification test detects fourteen high-risk HPV types (16,18,31,33,35,39,45,51 ,52,56,58,59,66,68) without differentiation. HIV Ab/p24 Ag with Reflex-08 [id number] Reviewed date:02/16/2024 09:06:16 AM Interpretation: Performing Lab:[facility] [place], [address] [facility], Phone - [phone], Director - Aurea Notes/Report: HIV Ab/p24 Ag Screen Non Reactive Non Reactive HIV-1/HIV-2 antibodies and HIV-1 p24 antigen were NOT detected. There is no laboratory evidence of HIV infection. HIV Negative [id number] Reviewed date:02/16/2024 09:06:16 AM Interpretation: Performing Lab:[facility] [place], [address] [facility], Phone - [phone], Director - Aurea Notes/Report: RPR Non Reactive Non Reactive UANP-Hpbtqhw-[id number] Reviewed date:02/16/2024 09:06:15 AM Interpretation: Performing Lab:[facility] [place], [address], [place], Phone - [phone], Director - Aurea Notes/Report: DHEA-Sulfate 243.0 57.3-279.2 ug/dL Reason For Referral Reason urinary stress incon tinence - would benefit from a urodynamic study faxed Diagnosis 1 Stress incontinence (female) (male) (N39.3) Referral Organization Tom SHIPLEY Referring Provider First Name Laila Referring Provider Last Name Lu Referring Provider Speciality Nurse Genesis erazo Referred Provider Natalie Goldman Referred Provider Specialty Sorter Packer General Notes [facility] 01/2024 03:44:03 PM >Faxed with [facility] Referral Form. To Mayte for appt f/u, Mayte BUTLER 08/12/2024 11:24:08 AM >, Mayte BUTLER 08/12/2024 12:04:25 PM >08/19/2024 9:00am [address] [phone], Mayte BUTLER 08/12/2024 12:27:27 PM > patient aware Referral Priority Routine Referral Appointment Date 08/19/2024 Medications Medication SIG (Take, Route, Frequency, Duration) Notes Start Date End Date Status Propranolol HCl 10 MG TAKE 1 TABLET BY M OUTH EVERY DAY FOR 90 DAYS for 90 Active Acyclovir 200 MG TAKE 1 CAPSULE DURIN G COLD SORE OUTBREAK ORALLY FIVE TIMES A DAY 5 DAYS for 5 Active NuvaRing 0.12-0.015 MG/24HR [address] for 3 weeks, remove, and replace with a new ring after 7 day break Vaginal for 28 day(s) Active Immunizations Vaccine Route Administration Date Status Comme nts Influenza-Afluria (IIV4) Unknown 08/14/2015 Administere d [id number]-[id number] Vaccine Unknown 05/24/2021 Administered *Tdap Unknown 09/11/2015 Administered *Gardasil 9-HPV9v IM Intramuscular 08/10/2024 Administered *Gardasil 9-HPV9v IM Intramuscular 10/14/2024 Administered Social History Tobacco Use: Social History Observation Description Date Details (start date - stop date) Never Smoker NA - NA Tobacco Use/Smoking Question Answer Notes Are you a nonsmoker Alcohol Screen (Audit-C) Question Answer Notes Did you have a drink contain ing alcohol in the past year? Yes How often did you have a dri nk containing alcohol in the past year? Monthly or less (1 point) How many drinks did you have on a typical day when you were drinking in the past year? 1 or 2 drinks (0 point) Points 1 Interpretation Negative Problems Problem Type SNOMED Code ICD Code Onset Dates Problem Status W/U Status Risk Notes Problem Pernicious anemia (44267962) Vitamin B12 deficiency anemia due to intrinsic factor deficiency (D51.0) Active confirmed Problem Polycystic ovarian syndrome (E28.2) Active confirmed Problem Vitamin D deficiency (40961255) Vitamin D deficiency, unspecified (E55.9) Active confirmed Problem Generalized anxiety disorder (61532656) Generalized anxiety disorder (F41.1) Active confirmed Problem Sciatica (61432200) Lumbago with sciatica, right side (M54.41) Active confirmed Problem SI - Stress incontinence (97001935) Stress incontinence (female) (male) (N39.3) Active confirmed Problem Intermenstrual bleeding - irregular (06488943) Excessive and frequent menstruation with irregular cycle (N92.1) Active confirmed Problem Irregular menstruation (52593714) Irregular menstruation, unspecified (N92.6) Active confirmed Vital Signs Heart Rate 87 /min 08/10/2024 Temperature 97.7 degrees Fahrenheit 08/10/2024 Blood pressure diastolic 68 mm Hg 08/10/2024 Oximetry 97 % 08/10/2024 Height 63 in 08/10/2024 Blood pressure systolic 108 mm Hg 08/10/2024 Weight 166 lbs 08/10/2024 BMI 29.4 kg/m2 08/10/2024 Encounters Encounter Location Date Provider Diagnosis Tom Salazar MD [address] [id number] 12/31/2023 Laila Leigh Lumbago with sciatic a, right side M54.41 and Rash and other nonspecific skin eruption R21 Tom Salazar MD [address] [id number] 02/04/2024 Laila Leigh Encounter for screen ing for malignant neoplasm of cervix Z12.4 ; Irregular menstruation, unspecified N92.6 ; Polycystic ovarian syndrome E28.2 ; Encounter for screening for infections with a predominantly sexual mode of transmission Z11.3 and Presence of (intrauterine) contraceptive device Z97.5 Tom Salazar MD [address] [id number] 08/10/2024 Laila Leigh Encounter for genera l adult medical examination without abnormal findings Z00.00 ; Generalized anxiety disorder F41.1 ; Irregular menstruation, unspecified N92.6 ; Acute vaginitis N76.0 ; Stress incontinence (female) (male) N39.3 ; Vitamin B12 deficiency anemia due to intrinsic factor deficiency D51.0 ; Polycystic ovarian syndrome E28.2 ; Vitamin D deficiency, unspecified E55.9 ; Encounter for screening mammogram for malignant neoplasm of breast Z12.31 ; Encounter for screening for cardiovascular disorders Z13.6 ; Encounter for immunization Z23 ; Encounter for antibody response examination Z01.84 ; Encounter for screening for other viral diseases Z11.59 ; Encounter for screening for malignant neoplasm of cervix Z12.4 and Encounter for screening examination for other mental health and behavioral disorders Z13.39 Tom Salazar MD [address] [id number] 10/14/2024 Tom Salazar Encounter for immunization Z23 Tom Salazar MD [address] [id number] 01/06/2024 Laila Salazar MD [address] [id number] 02/12/2024 Laila Leigh Irregular menstruati on, unspecified N92.6 and Polycystic ovarian syndrome E28.2 Tom Salazar MD [address] [id number] 02/16/2024 Laila Salazar MD [address] [id number] 01/27/2024 Laila Salazar MD [address] [id number] 01/29/2024 Laila Salazar MD [address] [id number] 02/02/2024 Laila Salazar MD [address] [id number] 02/02/2024 Laila Salazar MD [address] [id number] 02/11/2024 Laila [place]azar MD [address] [id number] 03/21/2024 Laila Leigh Assessments Encounter Date Diagnosis (ICD Code) Assessment Notes Treatment Notes Treatment Clinical Notes Section Notes 02/12/2024 Irregular menstruation, unspecified (ICD-10 - N92.6) 08/10/2024 Generalized anxiety disorder (ICD-10 - F41.1) Pt has seen much improvement in her stressors and anxiety sense last visit. Pt to continue working on coping strategies 08/10/2024 Encounter for general adult medical examination without abnormal findings (ICD-10 - Z00.00) General healthcare up-to-date. Will obtain updated routine labs.Plan we for annual in 1 year 10/14/2024 Encounter for immunization (ICD-10 - Z23) 02/04/2024 Irregular menstruation, unspecified (ICD-10 - N92.6) Reviewed patient's history of irregular menstrual cycles with and without an IUD in place. Patient currently has IUD in place and states since having Mirena 3 years ago her cramping and abdominal discomfort have worsened. She states she is now having painful intercourse and bleeding after intercourse. Patient to continue tracking her cycles and will obtain updated hormone levels to assess for underlying PCOS. Will also obtain a transvaginal ultrasound for further evaluation of IUD placement given pain with deep penetration and irregular bleeding 02/04/2024 Encounter for screening for malignant neoplasm of cervix (ICD-10 - Z12.4) Patient is unsure when her last Pap smear was completed and she was agreeable to complete a Pap smear during her vaginal exam today. 12/31/2023 Lumbago with sciatica, right side (ICD-10 - M54.41) Will obtain X-rays of thoracic and lumbar spine given tenderness and pain that began 3 weeks ago. Will also obtain labs given findings of tenderness and vertical skin rash over areas of discomfort. Pt may benefit from further imagine dependent on X-ray findings 12/31/2023 Rash and other nonspecific skin eruption (ICD-10 - R21) It is unclear what the underlying cause is for rash noted to spinal region. Will obtain labs and given pt's tenderness on palpation to L3-L4, she may require further imaging (CT Scan) to further assess area is X-rays are without findings 02/04/2024 Polycystic ovarian syndrome (ICD-10 - E28.2) See plan above 08/10/2024 Irregular menstruation, unspecified (ICD-10 - N92.6) Patient recently had her IUD removed given irregular menstrual cycle since having this placed. Patient continues to use the NuvaRing and encouraged patient to continue tracking her menstrual cycles to ensure improvement in her period irregularity. Previous AMH level was noted to be almost 5, which does have a slightly higher correlation with underlying PCOS. No further interventions warranted and pt to remain on control to further assist in cycle regularity 02/12/2024 Polycystic ovarian syndrome (ICD-10 - E28.2) 08/10/2024 Acute vaginitis (ICD-10 - N76.0) Patient shares concerns of increased vaginal itching and thick white discharge. Will begin Diflucan for suspected yeast infection patient aware to follow-up should her symptoms not improve with a course of this medication 02/04/2024 Encounter for screening for infections with a predominantly sexual mode of transmission (ICD-10 - Z11.3) Given painful intercourse and bleeding after intercourse will obtain STI labs, both serum and urine 02/04/2024 Presence of (intrauterine) contraceptive device (ICD-10 - Z97.5) Patient states she has had the Mirena in place for nearly 3 years and she has had increased abdominal discomfort, cramping, irregular periods, and painful intercourse this was placed. She states pain is actually beginning to worsen and due to this, will obtain a transvaginal ultrasound to assess placement of IUD 08/10/2024 Stress incontinence (female) (male) (ICD-10 - N39.3) Spent much time discussing patient's increased urge incontinence symptoms. Patient would benefit from urodynamic study with urogynecology referral made to Dr. Goldman at this time patient can begin increasing her Kegel exercises and discussed pelvic floor PT but will wait until urogynecology exam is completed to further determine best interventions to assist with her symptoms 08/10/2024 Vitamin B12 deficiency anemia due to intrinsic factor deficiency (ICD-10 - D51.0) Will repat B12 level to ensure improvement in her B12 lelves. Pt to remain on B12 supplement at least 3 times a week and will adjust if needed depending on her lab results 08/10/2024 Polycystic ovarian syndrome (ICD-10 - E28.2) See plan above 08/10/2024 Vitamin D deficiency, unspecified (ICD-10 - E55.9) Will check level to verify that there is no deficiency 08/10/2024 Encounter for screening mammogram for malignant neoplasm of breast (ICD-10 - Z12.31) Up-to-date on breast cancer screenings. Patient will continue to have mammograms every 6 months as ordered by [facility] given dense tissue noted to both outer quadrants of breasts 08/10/2024 Encounter for screening for cardiovascular disorders (ICD-10 - Z13.6) Blood pressure stable. Will check for comorbidity of hyperlipidemia and hyperglycemia to further assess risk 08/10/2024 Encounter for immunization (ICD-10 - Z23) Reviewed vaccine history and patient is agreeable to receive her HPV vaccines. Patient to receive the first dose today and will schedule nurse visits to receive the next 2 doses during the recommended timeframe 08/10/2024 Encounter for antibody response examination (ICD-10 - Z01.84) Titers have been checked in the past and there is immunity to rubeola 08/10/2024 Encounter for screening for other viral diseases (ICD-10 - Z11.59) Will screen for hepatitis C as per general recommendation 08/10/2024 Encounter for screening for malignant neoplasm of cervix (ICD-10 - Z12.4) Patient is up-to-date with cervical cancer screenings 08/10/2024 Encounter for screening examination for other mental health and behavioral disorders (ICD-10 - Z13.39) PHQ score reviewed and no further interventions warranted at this Plan Of Treatment Pending Test Test Name Order Date VITAMIN B12 05/21/2023 Vitamin [id number] 08/10/2024 CBC With Differential/Platelet-[id number] Vitamin D, 24-[id number] 08/10/2024 HCV Antibody RFX to Quant PCR-[id number] 12/2023 Comp. Metabolic Panel [id number] 2023 LP+Non-HDL Cholesterol-[id number] 08/10/2024 UA/M w/rflx Culture, Routine-[id number] 12/2023 Next Appt Details Provider Name:Laila Leigh , 02/08/2025 09:30:00 AM, [address] [place] [address], [place] [address], [place], [place], [phone], Provider Name:Laila Leigh , 08/14/2025 01:00:00 PM, [address] [place] [address], [place] [address], [place], [place], [phone], Insurance Providers Payer Name Payer Address Payer Phone Subscriber Number Group Number Insured Name Patient Relationship to Insured Coverage Start Date Coverage End Date [address] [address] [id number] Meaghan Cruz Self - patient is the insured Medical (General) History Medical History History ICD Code 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
--- OUTSIDE RECORDS SUMMARY | 2024-10-25 13:44 | XMS_ITS | Encounter Summary ---
Author Organization [facility] Address [address] [place] [address] Phone Care Team Providers Care Brewery Worker Name Role Phone Lauren Dutton MD Primary Care Provider Encounter Details Date Type Department Care Team (Late st Contact Info) Description 04/23/2017 Conversion Encounter [facility] [place] [address] [place] [address] Social History Tobacco Use Types Packs/Day Years Used Date Smoking Tobacco: Never Assessed Comments Unknown Sex and Gender Information Value Date Recorded Sex Assigned at Not on file Legal Sex Female 4:31 PM EDT Gender Identity Not on file Sexual Orientation Not on file documented as of this encounter Plan of Treatment Not on file documented as of this encounter Visit Diagnoses Not on filedocumented in this encounter Care Teams Brewery Worker Relationship Specialty Start Date End Date Lauren Dutton MD [address] [place] [address] PCP - General 04/17/17 02/11/23 documented as of this encounter
--- OUTSIDE RECORDS SUMMARY | 2024-10-25 13:44 | XMS_ITS | Clinical Summary ---
Author Organization [facility] Address [address] [place] [address] Phone Care Team Providers Care Neon Sign Servicer Name Role Phone Unavailable Primary Care Provider Unavailabl e Immunizations Immunization Administration Dates Next Due DTP 03/06/1999, 9,11/04/1998,05/07,04/06/1990 H1N1 06/19/2009 Hep B, ped/adol 07/18/1999,03/08/1999,02/06/1999 Hib (PRP-T) 04/06/1990 IPV 03/06/1999, 9,11/04/1998,05/07,04/06/1990 Influenza, injectable, trivalent 06/19/2009 MMR 02/06/1999,01/04/1990 Meningococcal Conj (Menactra) MCV4P 11/09/2006 Td (adult) (Tenivac), 5 Lf t etanus toxoid, PF, adsorbed 02/06/1999 Tdap 11/03/2008 Family History Relation Name Status Comments Brother 1 Alive Brother: Alive and well, Asthma, ADD/ADHD, Alive and well Brother 2 Alive Brother: Alive and well, Asthma, ADD/ADHD, Alive and well Father Alive Father: Alive a nd well Mother Alive Mother: Alive a nd well Other No family histo ry of Strabismus/amblyopia, No family history of Obesity, No family history of Migraines, No family history of Developmental dislocation of hip, No family history of Autism, No family history of Deafness, No family history of Sudden /NE under age 55, No family history of Seizure disorder Paternal Grandfather Paterna l grandfather: Elevated cholesterol, Diabetes mellitus Sister Alive Sister: Alive a nd well Social History Tobacco Use Types Packs/Day Years Used Date Smoking Tobacco: Never Assessed Comments Unknown Sex and Gender Information Value Date Recorded Sex Assigned at Not on file Legal Sex Female 4:31 PM EDT Gender Identity Not on file Sexual Orientation Not on file Plan of Treatment Health Maintenance Due Date Last Done Comments Varicella Vaccines (1 of 2 - 13+ 2-dose series) 2001 DTaP,Tdap,and Td Vaccines (8 - Td or Tdap) 11/03/2018 11/03/2008, 03/06/1999, 02/06/1999, Additional history exists Influenza Vaccines (#1) 2024 06/19/2009 COVID-19 Vaccine ( season) 2024 HIB Vaccines Completed 04/06/1990 MMR Vaccines Completed 02/06/1999, 01/04/1990 IPV Vaccines Completed 03/06/1999, 12/08, 11/04/1998, Additional history exists Hepatitis B Vaccines Completed 07/18/1999, 03/08/1999, 02/06/1999 Meningococcal Vaccine Completed 11/09/2006 HPV Vaccines Aged Out No longer eligi ble based on patient's age to complete this topic Hepatitis A Vaccines Aged Out No long er eligible based on patient's age to complete this topic Men B Vaccine Aged Out No longer elig ible based on patient's age to complete this topic Pneumococcal Vaccine Aged Out No long er eligible based on patient's age to complete this topic
--- OUTSIDE RECORDS SUMMARY | 2024-10-25 13:44 | XMS_ITS ---
Author Organization [facility] Address [address] [place] [phone] Care Team Providers Care Dermatologist Name Role Phone Laila Leigh Primary Care Provider REASON FOR VISIT 2m HPV Vaccine Encounters Encounter Location Date Provider Diagnosis [facility] [address] [place] [facility] [address] [place] [phone] 10/11/2024 Laila Leigh Plan Of Treatment Next Appt Details Provider Name:Laila Leigh , 02/08/2025 09:30:00 AM, [address] [place] [address], [phone], Provider Name:Laila Leigh , 08/14/2025 01:00:00 PM, [address] [place] [address], [phone], Progress Notes * Kris OMALLEYOB:[birth year] (34 yo F)Acc No.[id number]:10/11/2024 Progress Note Patient:?Meaghan OMALLEY Appointment Provider:?CYNDI Helms :1990???Age:34 Y???Sex:Female D ate:10/11/2024 Address:[address] [place], [place] [phone] Subjective: * Chief Complaints: * ???1. 2m HPV Vaccine. * Medical History:? Objective: * Vitals:? Past Vitals:* 08/10/2024 Temp:97.7F, HR:87/min, BP:10 8/68mm Hg, Wt:166lbs, BMI:29.4Index, Ht:63in, Oxygen sat %:97% * 02/04/2024 Temp:97.7F, HR:72/min, Wt:16 7.00lbs, BMI:29.58Index, Ht:63in, Oxygen sat %:96% * 12/31/2023 Temp:97.8F, HR:85/min, Wt:17 2lbs, BMI:30.47Index, Ht: 63 in, Oxygen sat %:99% Assessment: Plan: * Treatment: * Images: Billing Information: * Visit Code:? * Procedure Codes:? * Electronic signature of Halie Leigh DNP on 10/25/2024 at 01:44 PM EST Sign off status: Pending * Appointment Provider:?CYNDI Helms Date:?10/11/2024 Generated for Renny doan/Cristin/Braden on:?10/25/2024 01:44 PM EST
--- OUTSIDE RECORDS SUMMARY | 2024-10-25 13:44 | XMS_ITS ---
Author Organization [facility] Address [address] [phone] Care Team Providers Care C Wpf Developer Name Role Phone Laila Leigh Primary Care Provider Allergies No Known Allergies Reason For Referral Reason urinary stress incon tinence - would benefit from a urodynamic study faxed Diagnosis 1 Stress incontinence (female) (male) (N39.3) Referral Organization [facility] Referring Provider First Name Laila Referring Provider Last Name Lu Referring Provider Speciality Nurse Prac titionenikita Referred Provider Natalie Goldman Referred Provider Specialty Strategic Accounts Manager General Notes Ivy BUTLER 01/2024 03:44:03 PM >Faxed with [facility] [place] Referral Form. To Mayte for appt f/u, Mayte BUTLER 08/12/2024 11:24:08 AM >, Mayte BUTLER 08/12/2024 12:04:25 PM >08/19/2024 9:00am [address] [phone] Brooke R 08/12/2024 12:27:27 PM > patient aware Referral Priority Routine Referral Appointment Date 08/19/2024 REASON FOR VISIT annual Medications Medication SIG (Take, Route, Frequency, Duration) Notes Start Date End Date Status Diflucan 150 MG 1 tablet on day one. Take 2 tablet 72 hours later if symptoms persist Orally Once a day for 2 days 08/10/2024 08/16/2024 Active Propranolol HCl 10 MG TAKE 1 TABLET [...] Vaccine Route Administration Date Status Comme nts *Gardasil 9-HPV9v IM Intramuscular 08/10/2024 Administered Social History Tobacco Use: Social History [...] Problem Status W/U Status Risk Notes Problem SI - Stress incontinence (79687977) Stress incontinence (female) (male) (N39.3) Active confirmed Vital Signs Temperature 97.7 degrees Fahrenheit 08/10/20 24 Heart Rate 87 /min 08/10/2024 Blood pressure systolic 108 mm Hg 08/10/20 24 Blood pressure diastolic 68 mm Hg 024 Weight 166 lbs 08/10/2024 BMI 29.4 kg/m2 08/10/2024 Height 63 in 08/10/2024 Oximetry 97 % 08/10/2024 Encounters Encounter Location Date Provider Diagnosis [facility] MD [address] [phone] 08/10/2024 Laila Leigh Encounter for genera l [...] other mental health and behavioral disorders Z13.39 Assessments Encounter Date Diagnosis (ICD Code) Assessment Notes Treatment Notes Treatment Clinical Notes Section Notes 08/10/2024 Encounter for general adult medical examination without abnormal findings (ICD-10 - Z00.00) General healthcare up-to-date. Will obtain updated routine labs.Plan we for annual in 1 year 08/10/2024 Generalized anxiety disorder (ICD-10 - F41.1) Pt has seen much improvement in her stressors and anxiety sense last visit. Pt to continue working on coping strategies 08/10/2024 Irregular menstruation, unspecified (ICD-10 - N92.6) [...] control to further assist in cycle regularity 08/10/2024 Acute vaginitis (ICD-10 - N76.0) Patient shares concerns of increased vaginal itching and thick white discharge. Will begin Diflucan for suspected yeast infection patient aware to follow-up should her symptoms not improve with a course of this medication 08/10/2024 Stress incontinence (female) (male) (ICD-10 - [...] interventions warranted at this Plan Of Treatment Medication Medication Name Sig Start Date Stop Date Notes Diflucan 150 MG 1 tablet on day one. Take 2 tablet 72 hours later if symptoms persist Orally Once a day for 2 days 08/10/2024 08/16/2024 Pending Test Test Name Order Date Vitamin [id number] 08/10/2024 CBC With Differential/Platelet-[id number] Vitamin D, 82-Tnreiff-[id number] 08/10/2024 HCV Antibody RFX to Quant PCR-[id number] 12/2023 Comp. Metabolic Panel [id number] 2023 LP+Non-HDL Cholesterol-[id number] 08/10/2024 UA/M w/rflx Culture, Routine-[id number] 12/2023 Referrals Referral Date Details 08/10/2024 08/10/2024, urinary stress incontinence - would benefit from a urodynamic study faxed, Natalie Goldman Next Appt Details Follow Up: 3 month f/u, tay wade in 1 year, Reason: Provider Name:Laila Leigh , 02/08/2025 09:30:00 AM, [address] [place] [address], [place] [address], [place], [place], [phone], Provider Name:Laila R Lu , 08/14/2025 01:00:00 PM, [address] [place] [address], [place] [address], [place], [place], [phone], Progress Notes * Kris OMALLEYOB:[birth year] (34 yo F)Acc No.[id number]:08/10/2024 Patient:?Meaghan OMALLEY Appointment Provider:?CYNDI Helms :1990???Age:33 Y???Sex:Female S upervising Provider:Laila Leigh DNP Date:08/10/2024 Address:[address] [place], [place] [id number] Subjective: * Chief Complaints: * ???1. Annual. * HPI: ???Annual:?Pt presents today for their annual visit. She is up-to-date with her dental cleaning and vision exam. ???PERINATAL DIRECTOR:?She is followed by PERINATAL DIRECTOR, and she completed a LEEP due to abnormal pap smears. She did remove her IUD and is now using the Nuva ring for control. She will continue to follow PERINATAL DIRECTOR to have follow-up pap smears to ensure normal pap smear results post LEEP. She also completed a mammogram due to masses on the outer quadrants of both breasts. She was referred to a surgeon for concerns of lipomas but pt is planning to have repeat mammograms every 6 months for a period of time. ???Psychology:?Pt has been working on coping strategies to manage her?stressors. She continues to feel like her stress level has greatly improved since last visit. She does take Propranolol during high stress times and does find this medication helpful but has not needed it recently. ???Depression Screening:?PHQ-2 (2015 Edition)?Little interest or pleasure in doing things??Not at all ?Feeling down, depressed, or hopeless??Not at all ?Total Score?0 * ROS:?General/Constitutional:?Denies?Change in appetite.?Denies?Chills.?Denies?Fever.?Denies?Sleep disturbance.?Denies?Weight gain.?Denies?Weight loss.?Respiratory:?Denies?Cough.?Denies?Shortness of breath.?Denies?Shortness of breath with exertion.?Denies?Sputum production.?Denies?Wheezing.?Cardiovascular:?Denies?Chest pain.?Denies?Chest pain with exertion.?Denies?Claudication.?Denies?Dizziness.?Denies?Dyspnea on exertion.?Denies?Irregular heartbeat.?Denies?Palpitations.?Denies?Shortness of breath.?Denies?Weight gain.?Gastrointestinal:?Denies?Dark Stools.?Denies?Abdominal pain.?Denies?Blood in stool.?Denies?Constipation.?Denies?Decreased appetite.?Denies?Heartburn.?Denies?Nausea.?Denies?Rectal bleeding.?Denies?Weight loss.?Hematology:?Denies?Bleeding problems.?Denies?Easy bruising.?Denies?Prolonged bleeding.?Denies?Swollen glands.?Genitourinary:?Denies?Nocturia.?Denies?Blood in urine.?Denies?Difficulty urinating.?Denies?Frequent urination.? 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 * Surgical History:?oral surge ry 09/2002, leap procedure 07/2024. * Hospitalization/Major Diagno stic Procedure:?Denies Past Hospitalization. * Family History:?Father: dustin e 58 yrs, Hypertension,Hyperlipidemia .?Mother: alive 55 yrs, Ovarian tumor cancerous was removed.?Son(s): alive, 2009 [id number] Healthy.?Siblings: alive, 1990- brother - [id number]-vgyji brother - [id number]-xvana sister healthy.?Paternal Grand Father: , Heart attack age 58 .?Paternal Grand Mother: , Unknown .?Maternal Grand Father: alive 84 yrs, Dementia early on set.?Maternal Grand Mother: alive 81 yrs, Healthy.?2 brother(s) , 1 sister(s) . 3 son(s) . .? * Social History:?Tobacco Use:?Tobacco Use/Smoking?Are you a?nonsmoker ???Drugs/Alcohol:?Drugs?Have you used drugs other than those for medical reasons in the past 12 months??No ?Alcohol Screen (Audit-C)?Did you have a drink containing alcohol in the past year??Yes ?How often did you have a drink containing alcohol in the past year??Monthly or less (1 point) ?How many drinks did you have on a typical day when you were drinking in the past year??1 or 2 drinks (0 point) ?Points?1 ?Interpretation?Negative ?Caffeine?Intake:?1-2 cups per day ?Do you smoke marijuana?: Denies. ?Do you drink alcohol?: Yes, Socially. ???Miscellaneous:?Exercise: yes, Occasionally , treadmill. * Medications:?Taking Proprano lol HCl 10 MG Tablet TAKE 1 TABLET BY MOUTH EVERY DAY FOR 90 DAYS , Taking Acyclovir 200 MG Capsule TAKE 1 CAPSULE DURING COLD SORE OUTBREAK ORALLY FIVE TIMES A DAY 5 DAYS , Taking NuvaRing 0.12-0.015 MG/24HR Ring [address] for 3 weeks, remove, and replace with a new ring after 7 day break Vaginal , Discontinued Mirena (52 MG) 20 MCG/DAY Intrauterine Device as directed Intrauterine , Medication List reviewed and reconciled with the patient * Allergies:?N.K.D.A. Objective: * Vitals:?Temp:97.7F, HR:87/mi n, BP:108/68mm Hg, Wt:166lbs, BMI:29.4Index, Ht:63in, Oxygen sat %:97%. Past Vitals:* 02/04/2024 Temp:97.7F, HR:72/min, Wt:16 7.00lbs, BMI:29.58Index, Ht:63in, Oxygen sat %:96% * 12/31/2023 Temp:97.8F, HR:85/min, Wt:17 2lbs, BMI:30.47Index, Ht: 63 in, Oxygen sat %:99% * 08/06/2023 Temp:97.6F, HR:83/min, BP:98 /68mm Hg, Wt:176.8lbs, BMI:31.32Index, Ht:63in, Oxygen sat %:98% * Examination: ???General Examination: ?GENERAL APPEARANCE:?Age appropriate, in no acute distress, well developed, well nourished.?HEAD:?normocephalic, atraumatic.?EYES:?extraocular movement intact (EOMI), sclera non-icteric.?NECK/THYROID:?neck supple, full range of motion, no thyromegaly, thyroid normal.?LYMPH NODES:?no axillary, supraclavicular or inguinal adenopathy.?HEART:?regular rate and rhythm, S1, S2 normal.?LUNGS:?clear to auscultation bilaterally.?ABDOMEN:?no hepatosplenomegaly, soft, nontender, nondistended.?BACK:?no kyphosis, no scoliosis.?MUSCULOSKELETAL:?full range of motion of the hip, full range of motion of the knee.?EXTREMITIES:?no clubbing, cyanosis, or edema.?NEUROLOGIC:?nonfocal, alert and oriented, gait normal, motor strength normal upper and lower extremities, no tremor.?PSYCH:?alert, oriented, good eye contact.? Assessment: * Assessment: 1.?Generalized anxiety disor amilcar - F41.1???2.?Encounter for general adult medical examination without abnormal findings - Z00.00 (Primary)???3.?Irregular menstruation, unspecified - N92.6???4.?Acute vaginitis - N76.0???5.?Stress incontinence (female) (male) - N39.3???6.?Vitamin B12 deficiency anemia due to intrinsic factor deficiency - D51.0???7.?Polycystic ovarian syndrome - E28.2???8.?Vitamin D deficiency, unspecified - E55.9???9. Encounter for screening mammogram for malignant neoplasm of breast - Z12.31???10.?Encounter for screening for cardiovascular disorders - Z13.6???11.?Encounter for immunization - Z23???12.?Encounter for antibody response examination - Z01.84???13.?Encounter for screening for other viral diseases - Z11.59???14.?Encounter for screening for malignant neoplasm of cervix - Z12.4???15.?Encounter for screening examination for other mental health and behavioral disorders - Z13.39 ?? Plan: * Treatment: 2.?Generalized anxiety disor amilcar? Clinical Notes: Pt has seen much improvement in her stressors and anxiety sense last visit. Pt to continue working on coping strategies?? 3.?Irregular menstruation, u nspecified? Clinical Notes: Patient recently had her IUD removed given [...] on control to further assist in cycle regularity?? 4.?Acute vaginitis? Start Diflucan Tablet, 150 MG, 1 tablet on day one. Take 2 tablet 72 hours later if symptoms persist, Orally, Once a day, 2 days, 2, Refills 2.?? Clinical Notes: Patient shares concerns of increased vaginal itching and thick white discharge. Will begin Diflucan for suspected yeast infection patient aware to follow-up should her symptoms not improve with a course of this medication?? 5.?Stress incontinence (fema le) (male)? Clinical Notes: Spent much time discussing patient's increased urge incontinence symptoms. Patient would benefit from urodynamic study with urogynecology referral made to Dr. Goldman at this time patient can begin increasing her Kegel exercises and discussed pelvic floor PT but will wait until urogynecology exam is completed to further determine best interventions to assist with her symptoms? Referral To:Natalie Goldman??Strategic Accounts Manager ?Reason:urinary stress incontinence - would benefit from a urodynamic study faxed 6.?Vitamin B12 deficiency an emia due to intrinsic factor deficiency?LAB: Vitamin [id number] Clinical Notes: Will repat B12 level to ensure improvement in her B12 lelves. Pt to remain on B12 supplement at least 3 times a week and will adjust if needed depending on her lab results?? 7.?Polycystic ovarian syndro me? Clinical Notes: See plan above?? 8.?Vitamin D deficiency, uns pecified?LAB: Vitamin D, 34-[id number] Clinical Notes: Will check level to verify that there is no deficiency?? 9.?Encounter for screening m ammogram for malignant neoplasm of breast? Clinical Notes: Up-to-date on breast cancer screenings. Patient will continue to have mammograms every 6 months as ordered by [facility] given dense tissue noted to both outer quadrants of breasts?? 10.?Encounter for screening for cardiovascular disorders?LAB: CBC With Differential/Platelet-[id number] ?LAB: Comp. Metabolic Panel [id number] ?LAB: LP+Non-HDL Cholesterol-[id number] ?LAB: UA/M w/rflx Culture, Routine-[id number] Clinical Notes: Blood pressure stable. Will check for comorbidity of hyperlipidemia and hyperglycemia to further assess risk?? 11.?Encounter for immunizati on? Clinical Notes: Reviewed vaccine history and patient is agreeable to receive her HPV vaccines. Patient to receive the first dose today and will schedule nurse visits to receive the next 2 doses during the recommended timeframe?? 12.?Encounter for antibody r esponse examination? Clinical Notes: Titers have been checked in the past and there is immunity to rubeola?? 13.?Encounter for screening for other viral diseases?LAB: HCV Antibody RFX to Quant PCR-[id number] Clinical Notes: Will screen for hepatitis C as per general recommendation?? 14.?Encounter for screening for malignant neoplasm of cervix? Clinical Notes: Patient is up-to-date with cervical cancer screenings?? 15.?Encounter for screening examination for other mental health and behavioral disorders? Clinical Notes: PHQ score reviewed and no further interventions warranted at this?? * Immunizations:? *Gardasil 9-HPV9v : 0.5 mL (Route: Intramuscular) given by [facility] on Left Deltoid (Encounter for immunization) * Procedure Codes:?20457 HPV V IRUS VACCINE 9 [place], [address] IMMUNIZATION ADMIN * Follow Up:?3 month f/u, tay al in 1 year * Images: Billing Information: * Visit Code:? 54862 Preventive Care Est Pt. Age 18-39. G0442 Annual Alcohol Misuse Screening, 15 min. Modifiers: 59 G0444 Annual Depression Screening, 15 min. Modifiers: 59 G0446 Cardiovascular Screening. Modifiers: 59 09312 Office Visit, Est Pt., Level 3. Modifiers: 25 * Procedure Codes:? 24053 HPV [place] 9 [place]. [address] IMMUNIZATION ADMIN. Review Notes: Tom Salazar 08/30/2024 09:38:22 AM EST > I was present and available for consultation duringthis visit. I have reviewed the encounter documentation and agree with the documentation provided by Laila Leigh DNP including assessment, treatment plan and discussion.* Sign off status: Completed true * Appointment Provider:?CYNDI Helms Date:?08/10/2024 Generated for Renny doan/Cristin/eTalainasmitting on:?10/25/2024 01:44 PM EST History and Physical Notes * HPI (History of Present Illness) Category Sub-Category Detail Notes Category Not es PERINATAL DIRECTOR She is followed by PERINATAL DIRECTOR, and she completed a LEEP due to abnormal pap smears. She did remove her IUD and is now using the Nuva ring for control. She will continue to follow PERINATAL DIRECTOR to have follow-up pap smears to ensure normal pap smear results post LEEP. She also completed a mammogram due to masses on the outer quadrants of both breasts. She was referred to a surgeon for concerns of lipomas but pt is planning to have repeat mammograms every 6 months for a period of time. Psychology Pt has been working on coping strategies to manage her stressors. She continues to feel like her stress level has greatly improved since last visit. She does take Propranolol during high stress times and does find this medication helpful but has not needed it recently Depression Screening PHQ-2 (2015 Edition) Little interest or pleasure in doing things?: Not at all Feeling down, depressed, or hopeless?: N ot at all Total Score: 0 Examination Category Sub-Category Detail Notes Category Not es General Examination GENERAL APPEARANCE: Age appr opriate, in no acute distress, well developed, well nourished HEAD: normocephalic, atrau matic EYES: extraocular movement intact (EOMI), sclera non-icteric NECK/THYROID: neck supple, full ra nge of motion, no thyromegaly, thyroid normal HEART: regular rate and rhy thm, S1, S2 normal LUNGS: clear to auscultatio n bilaterally ABDOMEN: no hepatosplenomegal y, soft, nontender, nondistended NEUROLOGIC: nonfocal, alert and oriented, gait normal, motor strength normal upper and lower extremities, no tremor EXTREMITIES: no clubbing, cyanosi s, or edema BACK: no kyphosis, no scol iosis MUSCULOSKELETAL: full range of motion of the hip, full range of motion of the knee LYMPH NODES: no axillary, supracl avicular or inguinal adenopathy PSYCH: alert, oriented, goo d eye contact Consultation Request Notes Referral Date Referring Provider Referred Provider Not es 08/10/2024 Laila Leigh Keisha urinary stres s incontinence - would benefit from a urodynamic study faxed
--- OUTSIDE RECORDS SUMMARY | 2024-10-25 13:44 | XMS_ITS ---
Author Organization [facility] Address [address] [place] [phone] Care Team Providers Care Connection Worker Name Role Phone Laila Leigh Primary Care Provider [phone] Tom Salazar Unavailable [phone] REASON FOR VISIT 2m HPV Vaccine Medications Medication SIG (Take, Route, Frequency, Duration) [...] Status Comme nts *Gardasil 9-HPV9v IM Intramuscular 10/14/2024 Administered Encounters Encounter Location Date Provider Diagnosis Tom Salazar MD [address] [phone] 10/14/2024 Tom Salazar Encounter for immunization Z23 Assessments Encounter Date Diagnosis (ICD Code) Assessment Notes Treatment Notes Treatment Clinical Notes Section Notes 10/14/2024 Encounter for immunization (ICD-10 - Z23) Plan Of Treatment Next Appt Details Provider Name:Laila Leihg , 02/08/2025 09:30:00 AM, [address] [place] [address], [phone], Provider Name:Laila Leigh , 08/14/2025 01:00:00 PM, [address] [place] [address], [phone], Progress Notes * Kris OMALLEYOB:[birth year] (34 yo F)Acc No.[id number]:10/14/2024 Progress Note Patient:Meaghan ZENDEJAS Provider:?Tom Salazar MD :1990???Age:34 Y???Sex:Female D ate:10/14/2024 Address:[address] [place] [address] [id number] Pcp:Laila Leigh Subjective: * Chief Complaints: * ???2m HPV Vaccine * Medical History:? * Surgical History:? * Hospitalization/Major Diagno stic Procedure:? * Medications:?TakingPropranol ol HCl 10 MG Tablet TAKE 1 TABLET BY MOUTH EVERY DAY FOR 90 DAYS Acyclovir 200 MG Capsule TAKE 1 CAPSULE DURING COLD SORE OUTBREAK ORALLY FIVE TIMES A DAY 5 DAYS NuvaRing 0.12-0.015 MG/24HR Ring [address] for 3 weeks, remove, and replace with a new ring after 7 day break Vaginal Taking Propranolol HCl 10 MG Tablet TAKE 1 TABLET BY MOUTH EVERY DAY FOR 90 DAYS Taking Acyclovir 200 MG Capsule TAKE 1 CAPSULE DURING COLD SORE OUTBREAK ORALLY FIVE TIMES A DAY 5 DAYS Taking NuvaRing 0.12-0.015 MG/24HR Ring [address] for 3 weeks, remove, and replace with a new ring after 7 day break Vaginal Objective: * Vitals:? Past Vitals:* 08/10/2024 Temp:97.7F, HR:87/min, BP:10 8/68mm Hg, Wt:166lbs, BMI:29.4Index, Ht:63in, Oxygen sat %:97% * 02/04/2024 Temp:97.7F, HR:72/min, Wt:16 7.00lbs, BMI:29.58Index, Ht:63in, Oxygen sat %:96% * 12/31/2023 Temp:97.8F, HR:85/min, Wt:17 2lbs, BMI:30.47Index, Ht: 63 in, Oxygen sat %:99% Assessment: * Assessment: 1.?Encounter for immunizatio n - Z23 (Primary)??? Plan: * Treatment: * Immunizations:? *Gardasil 9-HPV9v : 0.5 mL (Route: Intramuscular) given by [facility] on Right Deltoid (Encounter for immunization) * Procedure Codes:?97172 HPV V IRUS VACCINE 9 NELLI [id number] IMMUNIZATION ADMIN * Images: Billing Information: * Visit Code:? * Procedure Codes:? 87201 HPV VIRUS [place]ACCINE 9 [place]. [address] IMMUNIZATION ADMIN. * Sign off status: Completed true * Provider:?Tom Salazar MD Date:?10/14 Generated for Renny doan/Cristin/Charissaitting on:?10/25/2024 01:44 PM EST
== END 2024-10-25 13:32 | disposition home or self-care (01) ==
LOC: HO.HWS 12:54
PROVIDERS: PCP Nurse Practitioner Family; Visit Provider Obstetrics & Gynecology
DX: Z30.9 Encounter for contraceptive management, unspecified (principal)
CPT/HCPCS: 99213

== ENCOUNTER → 2024-10-25 12:54 | Outpatient (BNVA) | payer OTHER, SELFPAY | PROVIDERS: PCP Nurse Practitioner Family; Visit Provider Obstetrics & Gynecology ==

== ENCOUNTER 2024-11-24 13:19 | Outpatient (AMB) | payer OTHER, SELFPAY ==
--- NOTE | 2024-11-24 13:25 | MHC.OFFVIS ---
Vital Signs 11/24/24 13:30 Height 5 ft 2 in Weight 168 lb BMI 30.7 BP 129/83 Blood Pressure Location Lt brachial Position Sitting Pulse 79 Intake Visit Reasons: 6 month follow up, breast exam Intake Note: Patient is seen in office for 6 month follow up visit, breast exam. 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 The same findings were noted last year on her examination and subsequent mammogram and ultrasound were performed on 05/28/2023. This revealed no suspicious findings in the region of the palpable abnormality at the upper outer quadrants. There was no mammographic evidence of malignancy (BI-RADS 1). She denies any symptoms in the breast bleeding breast pain, skin change, nipple discharge or arm pain. She denies a previous history of breast cancer or breast surgery. Her family history is negative for breast cancer. She is with 3 sons ages 14, 12 and 8. She reports breast-feeding all 3 children. She denies history of breast trauma, infection or radiation. Repeat mammogram and ultrasound of the bilateral breasts performed on 05/04/2024 revealed no findings suspicious for malignancy in either breast. No mammographic or sonographic abnormalities in the region of palpable concern in the bilateral breasts upper outer quadrant were noted (BI-RADS 1 both mammogram and ultrasound). Recommendations for mammogram at the age of 40 or earlier if clinically indicated. She returns today for a six-month follow-up examination. [facility], [facility] Medical History Hypercholesteremia ADHD Seasonal allergies Surgical History History of oral surgery Family History Father Heart disease Paternal Grandfather Diabetes mellitus Heart attack Social History Are you a primary ambulatory care to a significant other at home: No Do you presently have visiting nurse or other home services: No Alcohol intake: current Alcohol intake frequency: holidays/special occasions only Patient Tobacco Use Status: Never used Tobacco Sexual orientation: Straight/Heterosexual Gender identity: Female Female Reproductive History Menstrual Age of Menarche: 10 Review of Systems Const All systems reviewed & are unremarkable except as noted in HPI and below Physical Exam Const General: cooperative and no acute distress Nutritional Appearance: well nourished Orientation/consciousness: patient oriented x3 Limitations: no limitations HEENT Head: Yes normocephalic and Yes atraumatic Ears: hearing grossly normal bilaterally Chest Other: Left breast: No skin change, no nipple retraction, no nipple discharge, no palpable mass, no enlarged lymph nodes. Mild fibrocystic pattern noted in the upper outer quadrant, less than previously noted last examination 6 months ago Right breast: No skin change, no nipple retraction, no nipple discharge, no palpable mass, no enlarged lymph nodes, mild fibrocystic change upper outer quadrant with no suspicious areas identified. Resp Effort & Inspection: normal respiratory effort, no audible wheezes, no cough and no respiratory distress Cardio Jugular venous distension: no JVD GI Inspection: Yes normal to inspection Skin Other: Warm, dry, no rash Neuro General: patient oriented x3 Extrem General: Yes no clubbing, cyanosis or edema Assessment & Plan Assessment & Plan (1) Bilateral breast lump: Code(s): N63.10 - Unspecified lump in the right breast, unspecified quadrant; N63.20 - Unspecified lump in the left breast, unspecified quadrant Category: Medical Plan Bilateral areas of fibrocystic change are again identified although less pronounced as on previous examinations. No new suspicious findings were identified. Recommend follow-up as needed. Coding Level of Care Code Est Pt Level 3 (72608) Diagnoses Bilateral breast lump N63.10; N63.20
[2024-11-24 13:30] VITALS: BP 129/83; PULSE 79; BMI 30.7
--- OUTSIDE RECORDS SUMMARY | 2024-11-24 15:48 | XMS_ITS ---
Author Organization Tom Salazar MD Address [address] [place] [id number] Care Team Providers Care Transferrer Name Role Phone Laila Leigh Primary Care Provider Tom Salazar Unavailable [phone] REASON FOR VISIT 2m HPV Vaccine Medications [...] Location Date Provider Diagnosis Tom Salazar MD [address] [phone] 10/14/2024 Tom Salazar Encounter for immunization Z23 Assessments Encounter Date Diagnosis (ICD Code) Assessment Notes Treatment Notes Treatment Clinical Notes Section Notes 10/14/2024 Encounter for immunization (ICD-10 - Z23) Plan Of Treatment Next Appt Details Provider Name:Laila Leigh , 02/08/2025 09:30:00 AM, [address] [place] [address], [phone], Provider Name:Laila Leigh , 08/14/2025 01:00:00 PM, [address] [place] [address], [phone], Progress Notes * Kris OMALLEYOB:[birth year] (34 yo F)Acc No.[id number]:10/14/2024 Progress Note Patient:Meaghan ZENDEJAS Provider:?Tom Salazar MD :1990???Age:34 Y???Sex:Female D ate:10/14/2024 Address:[address] [place] [address] [id number] Pcp:Laila Leigh Subjective: * Chief Complaints: * [...] : 0.5 mL (Route: Intramuscular) given by [facility] on Right Deltoid (Encounter for immunization) * Procedure Codes:?28667 HPV V IRUS VACCINE 9 NELLI [id number] IMMUNIZATION ADMIN * Images: Billing Information: * Visit Code:? * Procedure Codes:? 65191 HPV VIRUS VACCINE 9 NELLI IM. 43775 IMMUNIZATION ADMIN. * Sign off status: Completed true * Provider:?Tom Saalzar MD Date:?10/14 Generated for Renny doan/Cristin/Charissaitting on:?11/24/2024 03:48 PM EDT
--- OUTSIDE RECORDS SUMMARY | 2024-11-24 15:48 | XMS_ITS ---
Author Organization [facility] Address [address] [place] [phone] Care Team Providers Care Floor Sweeper Name Role Phone Laila Leigh Primary Care Provider [phone] REASON FOR VISIT 2m HPV Vaccine Encounters Encounter Location Date Provider Diagnosis Tom Salazar MD [address] [place] [address] [place] [id number] 10/11/2024 Laila Leigh Plan Of Treatment Next Appt Details Provider Name:Laila Leigh , 02/08/2025 09:30:00 AM, [address] [place] [address], [phone], Provider Name:Laila Leigh , 08/14/2025 01:00:00 PM, [address] [place] [address], [phone], Progress Notes * Kris OMALLEYOB:[birth year] (34 yo F)Acc No.[id number]:10/11/2024 Progress Note Patient:?Meaghan OMALLEY Appointment Provider:?CYNDI Helms :1990???Age:34 Y???Sex:Female D ate:10/11/2024 Address:[address] [place], [place] [address]Peter [id number] Subjective: * Chief Complaints: * ???1. 2m [...] Electronic signature of Halie Leigh DNP on 11/24/2024 at 03:48 PM EDT Sign off status: Pending * Appointment Provider:?CYNDI Helms Date:?10/11/2024 Generated for Renny doan/Cristin/Braden on:?11/24/2024 03:48 PM EDT
--- OUTSIDE RECORDS SUMMARY | 2024-11-24 15:49 | XMS_ITS | Encounter Summary ---
Author Organization [facility] Address [address] [place] [address] Phone Care Team Providers Care Email Manager Name Role Phone Lauren Dutton MD Primary Care Provider Encounter Details Date Type Department Care Team (Late st Contact Info) Description 04/23/2017 Conversion Encounter [facility] [address] [place] [address] Social History Tobacco Use Types Packs/Day Years [...] on filedocumented in this encounter Care Teams Email Manager Relationship Specialty Start Date End Date Lauren Dutton MD [address] [place] [address] PCP - General 04/17/17 02/11/23 documented as of this encounter
--- OUTSIDE RECORDS SUMMARY | 2024-11-24 15:49 | XMS_ITS | Clinical Summary ---
Author Organization [facility] Address [address] [place] [address] Phone Care Team Providers Care Genetic Supervisor Name Role Phone Unavailable Primary Care Provider [...] of Deafness, No family history of Sudden /SD under age 55, No family history of [...]
--- OUTSIDE RECORDS SUMMARY | 2024-11-24 15:49 | XMS_ITS | Patient Health Record ---
Author Organization Tom Salazar MD Address [address] [place] [address] [phone] Care Team Providers Care Continuous Improvement Coach Name Role Phone LeighAnthonyLaila Primary Care Provider Tom Salazar Unavailable [phone] Allergies No Known Allergies Results Component Value Reference Range Notes US Pelvic Transvaginal Reviewed date:02/16/2024 09:06:15 AM [...] IUD. Otherwise unremarkable uterus and ovaries. WSN: [id number] Ordering Physician: Tom Salazar Dictated By: Chris [...] IUD. Otherwise unremarkable uterus and ovaries. WSN: [id number] Ordering Physician: Tom Salazar US Pelvic Transabdominal Reviewed date:02/16/2024 09:06:15 AM [...] IUD. Otherwise unremarkable uterus and ovaries. WSN: [id number] Ordering Physician: Tom Salazar Dictated By: Chris [...] IUD. Otherwise unremarkable uterus and ovaries. WSN: [id number] Ordering Physician: Tom Salazar Report Reviewed date:02/16/2024 09:06:15 AM Interpretation: Performing Lab:[facility] [address] [place] [address], Phone - [phone], Director - Aurea Notes/Report: OHWZ-[id number] Reviewed date:02/16/2024 09:06:15 AM Interpretation: Performing Lab:[facility] [place], [address] [place] [address], Phone - [phone], Director - Aurea Notes/Report: DHEA-Sulfate 243.0 57.3-279.2 ug/dL Testosterone-809603 Reviewed date:02/16/2024 09:06:16 AM Interpretation: Performing Lab:[facility] [place] [address] [place] [address], Phone - [phone], Director - Aurea Notes/Report: Testosterone 48 8-60 ng/dL Luteinizing Hormone(LH)-0042 83 Reviewed date:02/16/2024 09:06:16 AM Interpretation: Performing Lab:[facility] [place] [address] [place] [address], Phone - [phone], Director - Aurea Notes/Report: LH 11.4 Adult Female Range Follicular phase 2.4 - 12.6 Ovulation phase 14.0 - 95.6 Luteal phase 1.0 - 11.4 Postmenopausal 7.7 - 58.5 FSH-467208 Reviewed date:02/16/2024 09:06:16 AM Interpretation: Performing Lab:[facility] [place] [address] [place] [address], Phone - [phone], Director Vasiliy Villar Notes/Report: FSH 4.5 Adult Female Range Follicular phase 3.5 - 12.5 Ovulation phase 4.7 - 21.5 Luteal phase 1.7 - 7.7 Postmenopausal 25.8 - 134.8 Progesterone-746405 Reviewed date:02/16/2024 09:06:16 AM Interpretation: Performing Lab:[facility] [place] [address] [place] [address] [place], Phone - [phone], Director Vasiliy Villar Notes/Report: Progesterone 1.0 Follicular phase 0.1 - 0.9 Luteal phase 1.8 - 23.9 Ovulation phase 0.1 - 12.0 First trimester 11.0 - 44.3 Second trimester 25.4 - 83.3 Third trimester 58.7 - 214.0 Postmenopausal 0.0 - 0.1 Prolactin-513582 Reviewed date:02/16/2024 09:06:16 AM Interpretation: Performing Lab:[facility] [place] [address] [place] [address], Phone - [phone], Director Vasiliy Villar Notes/Report: Prolactin 8.2 4.8-33.4 ng/mL Estrogens, Total-478818 Reviewed date:02/16/2024 09:06:16 AM Interpretation: Performing Lab:[facility] [place] [address] [place] [address], Phone - [phone], Director Vasiliy Villar Notes/Report: Estrogens, Total 276 Prepubertal < 40 Female Cycle: 1-10 Days 16 - 328 11-20 Days 34 - 501 21-30 Days 48 - 350 Post-Menopausal 40 - 244 RPR-[id number] Reviewed date:02/16/2024 09:06:16 AM Interpretation: Performing Lab:[facility] [place] [address] [place] [address], Phone - [phone], Director Vasiliy Villar Notes/Report: RPR Non Reactive Non Reactive HIV Ab/p24 Ag with Reflex-08 3935 Reviewed date:02/16/2024 09:06:16 AM Interpretation: Performing Lab:[facility] [place] [address] [place] [address], Phone - [phone], Director Vasiliy Villar Notes/Report: HIV Ab/p24 Ag Screen Non Reactive Non Reactive HIV-1/HIV-2 antibodies and HIV-1 p24 antigen were NOT detected. There is no laboratory evidence of HIV infection. HIV Negative HCV Antibody RFX to Quant PC [id number] Reviewed date:02/16/2024 09:06:16 AM Interpretation: Performing Lab:[facility] [place], [address] [facility], [place], Phone - [phone], Director - Aurea Notes/Report: HCV Ab Non Reactive Non Reactive Interpretation: Not infected with HCV unless early or acute infection is suspected (which may be delayed in an immunocompromised individual), or other evidence exists to indicate HCV infection. Thin Prep-IGP,CtNg,rfxAptHPV all,,45 Reviewed date:02/16/2024 09:06:15 AM Interpretation: Performing Lab:, [address] [facility], Phone - [phone], Director - Aretha Notes/Report: Clinical Information:SRC: [id number] No. of containers..01 ThinPrep Vial Clinical Information:SRC: [id number] No. of containers..01 ThinPrep Vial DIAGNOSIS: EPITHELIAL CELL ABNORMALITY. LOW GRADE SQUAMOUS INTRAEPITHELIAL LESION (LSIL). Specimen adequacy: Satisfact ory for evaluation. No endocervical component is identified. Clinician provided ICD10: Z12.4 Performed by: Kelsey yin, Photo Technologist (ASCP) Electronically signed by: Margo Vega MD, Pathologist . . Pathologist provided ICD10: R87.612 Note: premalignant and malignant conditions of the uterine cervix. It is not a diagnostic procedure and should not be used as the sole means of detecting cervical cancer. Both false-positive and false-negative reports do occur. . The Pap smear is a screening test designed to aid in the detection of Test Methodology: This liquid based ThinPrep(R) pap test was screened with the use of an image guided system. . See below for HPV testing results. . Chlamydia, Nuc. Acid Amp Negative Negative Gonococcus, Nuc. Acid Amp Negative Negative HPV Aptima Positive Negative This nucleic acid amplification test detects fourteen high-risk HPV types (16,18,31,33,35,39,45,51 ,52,56,58,59,66,68) without differentiation. Comp. Metabolic Panel (14)-3 Reviewed date:02/16/2024 09:06:15 AM Interpretation: Performing Lab:[facility] [place], [address] [facility], Phone - [phone], Director - Aurea Notes/Report: Glucose 81 70-99 [...] 20 0-32 IU/L UA/M w/rflx Culture, Routine -[id number] Reviewed date:02/16/2024 09:06:15 AM Interpretation: Performing Lab:[facility] [place], [address] [facility], Phone - [phone], Director - Aurea Notes/Report: Specific [place] 1.015 1.005-1.030 pH 7.0 5.0-7.5 Urine-Color Yellow [...] seen /lpf Bacteria None seen None seen/Few Anti-Mullerian Hormone (AMH) -605285 Reviewed date:02/16/2024 09:06:15 AM Interpretation: Performing Lab:[facility], Phone - [phone], Director - Aurea Notes/Report: Anti-Mullerian Hormone (AMH) 4.92 For assays employing antibodies, the possibility exists for interference by heterophile antibodies in the samples.1 1.Serge Bailey Interferences in Immunoassays - still a threat. Clin. Chem. 2000; 46: 3173-0946. This test was developed and its performance characteristics determined by [employer]. It has not been cleared or approved by the Food and Drug Administration. Reference Range: Females 31 - 35y: 0.66 - 8.75 Median 3.00 AMH concentrations of >= 1.06 ng/mL is correlated with a better response to ovarian stimulation, produced more retrievable oocytes and higher odds of live according to Shankar et al. Fertility and Sterility. 2010: 94:6224-7232. The current AMH test method correlates with [...] diagnose or exclude an AMH-secreting ovarian tumor. TSH reflex to [id number] Reviewed date:02/16/2024 09:06:15 AM Interpretation: Performing Lab:[facility], Phone - [phone], - Aurea Notes/Report: TSH 1.760 0.450-4.500 uIU/mL CBC With Differential/Platel et-222923 Reviewed date:01/03/2024 08:07:50 AM Interpretation: Performing Lab:[facility], [place], Phone - [phone], - Aurea Notes/Report: WBC 7.0 3.4-10.8 x10E3/uL [...] Immature Grans (Abs) 0.0 0.0-0.1 x10E3/uL Sedimentation Rate-[facility] [id number] Reviewed date:01/03/2024 08:07:50 AM Interpretation: Performing Lab:[facility] [place], [address] [place] [address], Phone - [phone], Director - Aurea Notes/Report: Sedimentation Rate-[facility] 4 0-32 mm/hr C-Reactive Protein, Quant-00 6627 Reviewed date:01/03/2024 08:07:50 AM Interpretation: Performing Lab:[facility] [place], [address] [place] [address], Phone - [phone], Director - Aurea Notes/Report: C-Reactive Protein, Quant <1 0-10 mg/L RUPERT by IFA Rfx Titer/Pattern -[id number] Reviewed date:01/03/2024 08:07:50 AM Interpretation: Performing Lab:[facility] [place], [address] [place] [address], Phone - [phone], Director - Aurea Notes/Report: RUPERT by IFA [...] soft tissues. IMPRESSION: Normal lumbar spine. WSN: [id number] Ordering Physician: Laila Leigh Dictated By: Jm Foster MD Lumbar Spine 2 or 3 Views Reason: lumbago with sciatica COMPARISON: None. FINDINGS: No bone lesions or fractures. Normal disc configuration. Normal alignment. No spondylolysis or spondylolisthesis. Normal soft tissues. IMPRESSION: Normal lumbar spine. WSN: [id number] Ordering Physician: Laila Leigh Thoracic Spine 3 Views Reviewed date:01/03/2024 08:07:50 AM Interpretation: Performing Lab: Notes/Report: Thoracic Spine 3 Views Reason: lumbago with sciatica COMPARISON: None. FINDINGS: No bone lesions or fractures. Normal disc configuration. Normal soft tissues. IMPRESSION: No acute abnormality. WSN: [id number] Ordering Physician: Laila Leigh Dictated By: Mili Tran MD Thoracic Spine 3 Views Reason: lumbago with sciatica COMPARISON: None. FINDINGS: No bone lesions or fractures. Normal disc configuration. Normal soft tissues. IMPRESSION: No acute abnormality. WSN: [id number] Ordering Physician: Laila Leigh PDF Report Reviewed date:02/16/2024 09:06:15 AM Interpretation: Performing Lab:, [facility], Phone - [phone], Director - Aretha Notes/Report: Clinical Information:SRC: [id number] No. of containers..01 ThinPrep Vial PDF Report Reviewed date:01/03/2024 08:07:50 AM Interpretation: Performing Lab:[facility], [address], [place], Phone - [phone], Director - Aurea Notes/Report: Reason For Referral Reason urinary stress incon tinence - would benefit from a urodynamic study faxed Diagnosis 1 Stress incontinence (female) (male) (N39.3) Referral Organization Tom SHIPLEY Referring Provider First Name Laila Referring Provider Last Name Lu Referring Provider Speciality Nurse Genesis erazo Referred Provider Natalie Goldman Referred Provider Specialty Drywaller General Notes Ivy BUTLER 01/2024 03:44:03 PM >[place] [facility] [place] To Mayte for appt f/u, Mayte BUTLER 08/12/2024 11:24:08 AM >, Mayte BUTLER 08/12/2024 12:04:25 PM >08/19/2024 9:00am [address] [phone], Mayte BUTLER 08/12/2024 12:27:27 PM > patient [...] nts *Gardasil 9-HPV9v IM Intramuscular 08/10/2024 Administered *Gardasil 9-HPV9v IM Intramuscular 10/14/2024 Administered *Tdap Unknown 09/11/2015 Administered QPOXK-48-Cxrciy Vaccine Unknown 05/24/2021 Administered Influenza-Afluria (IIV4) Unknown 08/14/2015 Administere d Social History Tobacco Use: Social History Observation [...] W/U Status Risk Notes Problem Pernicious anemia (73400423) Vitamin B12 deficiency anemia due to intrinsic factor deficiency (D51.0) Active confirmed Problem Polycystic ovary syndrome (disorder) (283866004) Polycystic ovarian syndrome (E28.2) Active confirmed Problem Vitamin D deficiency (66172108) Vitamin D deficiency, unspecified (E55.9) Active confirmed Problem Generalized anxiety disorder (20511028) Generalized anxiety disorder (F41.1) Active confirmed Problem Sciatica (96753713) Lumbago with sciatica, right side (M54.41) Active confirmed Problem SI - Stress incontinence (75928952) Stress incontinence (female) (male) (N39.3) Active confirmed Problem Intermenstrual bleeding - irregular (56134820) Excessive and frequent menstruation with irregular cycle (N92.1) Active confirmed Problem Irregular menstruation (47657118) Irregular menstruation, unspecified (N92.6) Active confirmed Vital Signs Heart Rate 87 /min 08/10/2024 Temperature 97.7 degrees Fahrenheit 08/10/2024 Blood pressure diastolic 68 mm Hg 08/10/2024 Oximetry 97 % 08/10/2024 Height 63 in 08/10/2024 Blood pressure systolic 108 mm Hg 08/10/2024 Weight 166 lbs 08/10/2024 BMI 29.4 kg/m2 08/10/2024 Encounters Encounter Location Date Provider Diagnosis Tom Salazar MD [address] [id number] 12/31/2023 Laila Leigh Lumbago with sciatic a, right side M54.41 and Rash and other nonspecific skin eruption R21 Tom Salazar MD [address] [id number] 02/04/2024 Laila Leigh Encounter for screen ing for malignant neoplasm of cervix Z12.4 ; Irregular menstruation, unspecified N92.6 ; Polycystic ovarian syndrome E28.2 ; Encounter for screening for infections with a predominantly sexual mode of transmission Z11.3 and Presence of (intrauterine) contraceptive device Z97.5 Tom Salazar MD [address] [id number] 08/10/2024 Laila Leigh Encounter for genera l [...] and behavioral disorders Z13.39 Tom Salazar MD [address] [id number] 10/14/2024 Tom Salazar Encounter for immunization Z23 Tom Salazar MD [address] [id number] 01/06/2024 Laila Salazar MD [address] [id number] 02/12/2024 Laila Leigh Irregular menstruati on, unspecified N92.6 and Polycystic ovarian syndrome E28.2 Tom Salazar MD [address] [id number] 02/16/2024 Laila Salazar MD [address] [id number] 01/27/2024 Laila Salazar MD [address] [id number] 01/29/2024 Laila Salazar MD [address] [id number] 02/02/2024 Laila Salazar MD [address] [id number] 02/02/2024 Laila Salazar MD [address] [id number] 02/11/2024 Laila Salazar MD [address] [id number] 03/21/2024 Laila Leigh Assessments Encounter Date Diagnosis (ICD Code) Assessment Notes Treatment Notes Treatment Clinical Notes Section Notes 12/31/2023 Lumbago with sciatica, right side (ICD-10 [...] area is X-rays are without findings 02/04/2024 Irregular menstruation, unspecified (ICD-10 - N92.6) [...] pain with deep penetration and irregular bleeding 02/12/2024 Irregular menstruation, unspecified (ICD-10 - N92.6) 02/04/2024 Encounter for screening for malignant neoplasm of cervix (ICD-10 - Z12.4) Patient is unsure when her last Pap smear was completed and she was agreeable to complete a Pap smear during her vaginal exam today. 08/10/2024 Generalized anxiety disorder (ICD-10 - F41.1) Pt has seen much improvement in her stressors and anxiety sense last visit. Pt to continue working on coping strategies 08/10/2024 Encounter for general adult medical examination without abnormal findings (ICD-10 - Z00.00) General healthcare up-to-date. Will obtain updated routine labs.Plan we for annual in 1 year 10/14/2024 Encounter for immunization (ICD-10 - Z23) 08/10/2024 Irregular menstruation, unspecified (ICD-10 - N92.6) [...] 02/12/2024 Polycystic ovarian syndrome (ICD-10 - E28.2) 02/04/2024 Polycystic ovarian syndrome (ICD-10 - E28.2) See plan above 02/04/2024 Encounter for screening for infections with a predominantly sexual mode of transmission (ICD-10 - Z11.3) Given painful intercourse and bleeding after intercourse will obtain STI labs, both serum and urine 08/10/2024 Acute vaginitis (ICD-10 - N76.0) Patient [...] best interventions to assist with her symptoms 02/04/2024 Presence of (intrauterine) contraceptive device (ICD-10 - Z97.5) Patient states she has had the Mirena in place for nearly 3 years and she has had increased abdominal discomfort, cramping, irregular periods, and painful intercourse this was placed. She states pain is actually beginning to worsen and due to this, will obtain a transvaginal ultrasound to assess placement of IUD 08/10/2024 Vitamin B12 deficiency anemia due to [...] Name Order Date VITAMIN B12 05/21/2023 Vitamin [id number] 08/10/2024 CBC With Differential/Platelet-692641 Vitamin D, 35-Addcqpi-988793 08/10/2024 HCV Antibody RFX to Quant PCR-[id number] 12/2023 Comp. Metabolic Panel (14)-[id number] 2023 LP+Non-HDL Cholesterol-450969 08/10/2024 UA/M w/rflx Culture, Routine-020262 12/2023 Next Appt Details Provider Name:Laila Leigh , 02/08/2025 09:30:00 AM, [address] [place] [address], [place] [address], [place], [place], [phone], Provider Name:Laila Leigh , 08/14/2025 01:00:00 PM, [address] [place] [address], [place] [address], [place], [place], [phone], Insurance Providers Payer Name Payer Address Payer Phone Subscriber Number Group Number Insured Name Patient Relationship to Insured Coverage Start Date Coverage End Date [address] [place] [id number] Meaghan Cruz Self - patient is the insured Medical (General) History Medical History History ICD Code 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
--- OUTSIDE RECORDS SUMMARY | 2024-11-24 15:49 | XMS_ITS ---
Author Organization [facility] Address [address] [phone] Care Team Providers Care Plate Put In Worker Name Role Phone Laila Leigh Primary [...] Referred Provider Natalie Goldman Referred Provider Specialty Sql Consultant General Notes Ivy BUTLER 01/2024 03:44:03 PM >Faxed with [facility] [place] Referral Form. To Mayte for appt f/u, Mayte BUTLER 08/12/2024 11:24:08 AM >, Mayte BUTLER 08/12/2024 12:04:25 PM >08/19/2024 9:00am [address] [phone] Brooke R 08/12/2024 12:27:27 PM > patient [...] Risk Notes Problem SI - Stress incontinence (42289049) Stress incontinence (female) (male) (N39.3) Active confirmed Vital Signs Temperature 97.7 degrees Fahrenheit 08/10/20 24 Blood pressure systolic 108 mm Hg 08/10/20 24 Blood pressure diastolic 68 mm Hg 024 Heart Rate 87 /min 08/10/2024 Height 63 in 08/10/2024 Weight 166 lbs 08/10/2024 BMI 29.4 kg/m2 08/10/2024 Oximetry 97 % 08/10/2024 Encounters Encounter Location Date Provider Diagnosis Tom Salazar MD [address] [id number] 08/10/2024 Laila Leigh Encounter for genera l [...] Pending Test Test Name Order Date Vitamin [id number] 08/10/2024 CBC With Differential/Platelet-396617 Vitamin D, 10-Jwgpudh-078281 08/10/2024 HCV Antibody RFX to Quant PCR-[id number] 12/2023 Comp. Metabolic Panel ([id number] 2023 LP+Non-HDL Cholesterol-528232 08/10/2024 UA/M w/rflx Culture, Routine-735178 12/2023 Referrals Referral Date Details 08/10/2024 08/10/2024, urinary stress incontinence - would benefit from a urodynamic study faxed, Natalie Goldman Next Appt Details Follow Up: 3 month f/u, tay wade in 1 year, Reason: Provider Name:Laila Leigh , 02/08/2025 09:30:00 AM, [address] [place] [address], [place] [address], [place], [place], [phone], Provider Name:Laila R Lu , 08/14/2025 01:00:00 PM, [address] [place] [address], [place] [address], [place], [place], [phone], Progress Notes * Kris OMALLEYOB:[birth year] (34 yo F)Acc No.[id number]:08/10/2024 Patient:?Meaghan OMALLEY Appointment Provider:?CYNDI Helms :1990???Age:33 Y???Sex:Female S upervising Provider:Laila Leigh DNP Date:08/10/2024 Address:[address] [place], [place] [id number] Subjective: * Chief Complaints: * ???1. Annual. * HPI: ???Annual:?Pt presents today for their annual visit. She is up-to-date with her dental cleaning and vision exam. ???FELT HAT MELLOWING MACHINE OPERATOR:?She is followed by FELT HAT MELLOWING MACHINE OPERATOR, and she completed a LEEP due to abnormal pap smears. She did remove her IUD and is now using the Nuva ring for control. 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 Referral To:Natalie Goldman??Sql Consultant ?Reason:urinary stress incontinence - would benefit from a urodynamic study faxed 6.?Vitamin B12 deficiency an emia due to intrinsic factor deficiency?LAB: Vitamin F99-350285 Clinical Notes: Will repat B12 level to ensure improvement in her B12 lelves. Pt to remain on B12 supplement at least 3 times a week and will adjust if needed depending on her lab results?? 7.?Polycystic ovarian syndro me? Clinical Notes: See plan above?? 8.?Vitamin D deficiency, uns pecified?LAB: Vitamin D, 16-Yjfeqmy-104111 Clinical Notes: Will check level to verify that there is no deficiency?? 9.?Encounter for screening m ammogram for malignant neoplasm of breast? Clinical Notes: Up-to-date on breast cancer screenings. Patient will continue to have mammograms every 6 months as ordered by [facility] given dense tissue noted to both outer quadrants of breasts?? 10.?Encounter for screening for cardiovascular disorders?LAB: CBC With Differential/Platelet- ?LAB: Comp. Metabolic Panel ([id number] ?LAB: LP+Non-HDL Cholesterol-775348 ?LAB: UA/M w/rflx Culture, Routine-286855 Clinical Notes: Blood pressure stable. Will check [...] viral diseases?LAB: HCV Antibody RFX to Quant PCR-658770 Clinical Notes: Will screen for hepatitis C as per general recommendation?? 14.?Encounter for screening for malignant neoplasm of cervix? Clinical Notes: Patient is up-to-date with cervical cancer screenings?? 15.?Encounter for screening examination for other mental health and behavioral disorders? Clinical Notes: PHQ score reviewed and no further interventions warranted at this?? * Immunizations:? *Gardasil 9-HPV9v : 0.5 mL (Route: Intramuscular) given by [facility] on Left Deltoid (Encounter for immunization) * Procedure Codes:?13239 HPV V IRUS VACCINE 9 NELLI IM, 88769 IMMUNIZATION ADMIN * Follow Up:?3 month f/u, tay al in 1 year * Images: Billing Information: * Visit Code:? 35771 Preventive Care Est Pt. Age 18-39. G0442 Annual Alcohol Misuse Screening, 15 min. Modifiers: 59 G0444 Annual Depression Screening, 15 min. Modifiers: 59 G0446 Cardiovascular Screening. Modifiers: 59 03062 Office Visit, Est Pt., Level 3. Modifiers: 25 * Procedure Codes:? 00598 HPV VIRUS VACCINE 9 [place]. 01735 IMMUNIZATION ADMIN. Review Notes: Tom Salazar 08/30/2024 09:38:22 AM EST > I was present and available for consultation duringthis visit. I have reviewed the encounter documentation and agree with the documentation provided by Laila Leigh DNP including assessment, treatment plan and discussion.* Sign off status: Completed true * Appointment Provider:?CYNDI Helms Date:?08/10/2024 Generated for Renny doan/Cristin/eTalainasmitting on:?11/24/2024 03:48 PM EDT History and Physical Notes * HPI (History of Present Illness) Category Sub-Category Detail Notes Category Not es FELT HAT MELLOWING MACHINE OPERATOR She is followed by FELT HAT MELLOWING MACHINE OPERATOR, and she completed a LEEP due to abnormal pap smears. She did remove her IUD and is now using the Nuva ring for control. She will continue to follow FELT HAT MELLOWING MACHINE OPERATOR to have follow-up pap smears to ensure [...]
== END 2024-11-24 13:44 | disposition home or self-care (01) ==
LOC: HO.HGS 13:20
PROVIDERS: PCP Nurse Practitioner Family; Visit Provider Surgery
DX: N63.10 Unspecified lump in the right breast, unspecified quadrant (principal); N63.20 Unspecified lump in the left breast, unspecified quadrant
CPT/HCPCS: 99213

== ENCOUNTER → 2024-11-24 13:19 | Outpatient (BNVA) | payer OTHER, SELFPAY | PROVIDERS: PCP Nurse Practitioner Family; Visit Provider Surgery ==

== ENCOUNTER 2025-02-09 09:02 | Outpatient (REF) | payer OTHER, SELFPAY ==
[2025-02-14 12:54] LABS: HPV Genotype 16 Negative (Negative); HPV Genotype 18 Negative (Negative); HPV High Risk Positive (Negative)
== END 2025-02-09 09:03 | disposition home or self-care (01) ==
LOC: HO.LNP 09:02
PROVIDERS: PCP Nurse Practitioner Family; Visit Provider Obstetrics & Gynecology
DX: N87.1 Moderate cervical dysplasia (principal)
CPT/HCPCS: 57454; 81025; 87626; 88175; 88305

== ENCOUNTER 2025-02-09 09:02 | Outpatient (AMB) | payer OTHER, SELFPAY ==
--- NOTE | 2025-02-09 09:23 | A.OFFVIS_ITS ---
Vital Signs 02/09/25 09:29 Height 5 ft 2 in Weight 168 lb BMI 30.7 Intake Visit Reasons: cotest/colpo Youth Care Worker Required: No Information Interpreted: non-clinical & clinical Clerical Warehouse Worker: Clerical Warehouse Worker Present (Usha Toscano) Accompanied by: Self / Same As Patient Allergies No Known Allergies Allergy (Verified 02/09/25 09:29) HPI Comments Details: Presenting for co testing/colposcopy. The patient had LGSIL in 02/28, colpo biopsy ECC showed MARYSOL 2-3, LEEP cone with post cone ECC in 07/31 showed MARYSOL 2 with positive margins, the patient was counseled regarding different options of treatment between repeat LEEP versus expectant management with co testing/colposcopy in six-month and elected to proceed with observation. [facility] Medical History MARYSOL II (cervical intraepithelial neoplasia II) Hypercholesteremia ADHD Seasonal allergies Surgical History History of oral surgery Family History Father Heart disease Paternal Grandfather Diabetes mellitus Heart attack Social History Are you a primary health care coordinator to a significant other at home: No Do you presently have visiting nurse or other home services: No Alcohol intake: current Alcohol intake frequency: holidays/special occasions only Patient Tobacco Use Status: Never used Tobacco Sexual orientation: Straight/Heterosexual Gender identity: Female Female Reproductive History Menstrual Age of Menarche: 10 Office Procedures Colposcopy Colposcopy: Pre-Procedure Counseling: Before beginning the procedure, I conducted comprehensive counseling with the patient. We thoroughly discussed the procedure itself, including its details, alternatives, and all associated risks. This included but not limited to the following complications such as bleeding, infection, and injury to the vagina, bladder, and vessels, as well as the potential need for transfusion with all its associated risks. Subsequently, the patient sign the consent. Urine test done in the office was negative Pap smear taken The patient had MARYSOL 2 status post LEEP cone with post cone ECC with positive margins in 07/31 Procedure: During the procedure, the following steps were performed: A speculum was inserted, and acetic acid was applied. Colposcopy was conducted, allowing visualization of the transformation zone. Acetowhite lesions were identified at the 5+ 6+7 +12 o'clock position. Cervical biopsies were obtained from the 5+ 6+7 +12 o'clock position, followed by an endocervical curettage (ECC). Vaginoscopy of the upper vagina revealed no evidence of aceto-white lesions. Hemostasis was achieved using Monsel solution, and the patient tolerated the procedure well. Post-Procedure Instructions: The patient was advised to promptly contact the office or the after hours answering service or go to the emergency room if experiencing a temperature exceeding 100.4?F, abdominal pain, nausea/vomiting, or bleeding. Additionally, the patient was instructed to abstain from vaginal intercourse and bathtub use. The patient confirmed understanding of these instructions. Discharge Instructions: The patient was instructed to schedule a follow-up appointment in 2 weeks for further evaluation and management. Please note that this note was generated using a voice recognition program, and errors may have occurred during vice president of instruction. [id number] of cervix including upper vagina with biopsy and ECC Procedure code (CPT) selection complete Results AMB Test Urine AMB Test Urine Negative Last Edit by Marie Colon CMA on 09:29 Assessment & Plan Assessment & Plan (1) MARYSOL II (cervical intraepithelial neoplasia II): Comment: 02/28 LGSIL colpo biopsy MARYSOL 2-3, LEEP cone post cone ECC MARYSOL 2 with positive margins Code(s): N87.1 - Moderate cervical dysplasia Category: Medical Plan: Co testing/colpo biopsy ECC done Orders: Orders AMB HCG Urine Test Today Z32.02 - Encounter for test, result negative AMB Colposcopy Today N87.1 - Moderate cervical dysplasia Coding Level of Care Code Est Pt Level 3 (01598) Diagnoses MARYSOL II (cervical intraepithelial neoplasia II) N87.1 CPT Codes Colposcopy - CPT: 11698-Qalvtskfd of cervix including upper vagina with biopsy and ECC ([id number])
[2025-02-09 09:29] VITALS: BMI 30.7
--- OUTSIDE RECORDS SUMMARY | 2025-02-09 09:42 | XMS_ITS ---
Author Organization [facility] Address [address] [place] [phone] Care Team Providers Care Preschool Head Teacher Name Role Phone Laila Leigh Primary Care Provider REASON FOR VISIT 2m HPV Vaccine Encounters Encounter Location Date Provider Diagnosis [facility] [address] [place] [phone] 10/11/2024 Laila Leigh Plan Of Treatment Next Appt Details Provider Name:Laila Leigh , 08/14/2025 01:00:00 PM, [address] [place] [address], [address], [phone], Progress Notes * Kris OMALLEYOB:[birth year] (34 yo F)Acc No.[id number]:10/11/2024 Progress Note Patient:Meaghan ZENDEJAS Appointment Provider:?CYNDI Helms :1990???Age:34 Y???Sex:Female D ate:10/11/2024 Address:[address] [place], [place] [phone] Subjective: * Chief Complaints: * ???1. 2m [...] Electronic signature of Halie Leigh DNP on 02/09/2025 at 09:41 AM EDT Sign off status: Pending * Appointment Provider:?CYNDI Helms Date:?10/11/2024 Generated for Renny doan/Cristin/Braden on:?02/09/2025 09:41 AM EDT
== END 2025-02-09 09:49 | disposition home or self-care (01) ==
LOC: HO.HWS 09:02
PROVIDERS: PCP Nurse Practitioner Family; Visit Provider Obstetrics & Gynecology
DX: Z32.02 Encounter for pregnancy test, result negative (principal); N87.1 Moderate cervical dysplasia
CPT/HCPCS: 57454; 99213

== ENCOUNTER 2025-03-02 15:25 | Outpatient (AMB) | payer OTHER, SELFPAY ==
--- OUTSIDE RECORDS SUMMARY | 2025-03-01 06:30 | XMS_ITS ---
Author Organization [facility] Address [address] [phone] Care Team Providers Care Airline Lounge Receptionist Name Role Phone Lu Laila Primary Care Provider [phone] Allergies No Known Allergies Results Component Value Reference Range Notes EKG (Not yet reviewed by pro vider) Interpretation: Performing Lab: Notes/Report: ECGDiastolicBP 0 ECGDiastolicBP 0 ECGHr 63 ECGHr 67 ECGPRInterval 142 ECGPRInterval 148 ECGPWaveAxis 158 ECGPWaveAxis 22 ECGQRSDuration 84 ECGQRSDuration 86 ECGQrsWaveAxis 145 ECGQrsWaveAxis 38 ECGQTcInterval 387 ECGQTcInterval 394 ECGQTInterval 382 ECGQTInterval 382 ECGSystolicBP 0 ECGSystolicBP 0 ECGTWaveAxis 180 ECGTWaveAxis -1 RR_DiastolicBP 0 RR_DiastolicBP 0 RR_MaxRRInterval 0 RR_MaxRRInterval 0 RR_MeanHR 0 RR_MeanHR 0 RR_MeanRRInterval 0 RR_MeanRRInterval 0 RR_MinRRInterval 0 RR_MinRRInterval 0 RR_NumBeats 0 RR_NumBeats 0 RR_NumNormalBeats 0 RR_NumNormalBeats 0 RR_SystolicBP 0 RR_SystolicBP 0 EKG (Not yet reviewed by pro vider) Interpretation: Performing Lab: Notes/Report: ECGDiastolicBP 0 ECGDiastolicBP 0 ECGHr 63 ECGHr 67 ECGPRInterval 142 ECGPRInterval 148 ECGPWaveAxis 158 ECGPWaveAxis 22 ECGQRSDuration 84 ECGQRSDuration 86 ECGQrsWaveAxis 145 ECGQrsWaveAxis 38 ECGQTcInterval 387 ECGQTcInterval 394 ECGQTInterval 382 ECGQTInterval 382 ECGSystolicBP 0 ECGSystolicBP 0 ECGTWaveAxis 180 ECGTWaveAxis -1 RR_DiastolicBP 0 RR_DiastolicBP 0 RR_MaxRRInterval 0 RR_MaxRRInterval 0 RR_MeanHR 0 RR_MeanHR 0 RR_MeanRRInterval 0 RR_MeanRRInterval 0 RR_MinRRInterval 0 RR_MinRRInterval 0 RR_NumBeats 0 RR_NumBeats 0 RR_NumNormalBeats 0 RR_NumNormalBeats 0 RR_SystolicBP 0 RR_SystolicBP 0 REASON FOR VISIT Left side pain Medications Medication SIG (Take, Route, Fr equency, Duration) Notes Start Date End Date Status Acyclovir 200 MG TAKE 1 CAPSULE DURIN G COLD SORE OUTBREAK ORALLY FIVE TIMES A DAY 5 DAYS; Duration: 5 Active Social History Tobacco Use: Social History Observation [...] Problem Status W/U Status Risk Notes Problem Menopause (351787046) Menopausal and female climacteric states (N95.1) Active confirmed Vital Signs Temperature 96.7 degrees Fahrenheit 03/01/20 25 Blood pressure systolic 112 mm Hg 03/01/20 25 Blood pressure diastolic 68 mm Hg 025 Heart Rate 70 /min 03/01/2025 Height 63 in 03/01/2025 Oximetry 99 % 03/01/2025 Procedures Procedure Date Ordered Date Performed Result Body Sit e HOLTER MONITOR, 7 DAYS, APPLICATION 03/01/2025 N/A Encounters Encounter Location Date Provider Diagnosis [facility] MD [address] [place] [phone] 03/01/2025 Laila Leigh Palpitations R00.2 ; Pain in left lower leg M79.662 and Menopausal and female climacteric states N95.1 Assessments Encounter Date Diagnosis (ICD Code) Assessment Notes Treatment Notes Treatment Clinical Notes Section Notes 03/01/2025 Palpitations (ICD-10 - R00.2) 03/01/2025 Pain in left lower leg (ICD-10 - M79.662) 03/01/2025 Menopausal and female climacteric states (ICD-10 - N95.1) Plan Of Treatment Pending Test Test Name Order Date Ultrasound : Doppler : Veins Leg Left EKG 03/01/2025 HOLTER MONITOR, 7 DAYS, APPLICATION 02/06 Urinalysis, Complete-022192 03/01/2025 Cortisol-972916 03/01/2025 Testosterone-584535 03/01/2025 Luteinizing Hormone(LH)-908876 FSH-617100 03/01/2025 Progesterone-397162 03/01/2025 Prolactin-755052 03/01/2025 Estrogens, Total-240066 03/01/2025 CBC With Differential/Platelet-099146 K-Gowmu-[id number] 03/01/2025 Comp. Metabolic Panel [id number] 2024 Next Appt Details Provider Name:Laila Leigh , 04/05/2025 09:00:00 AM, [address] [place] [address], [phone], Provider Name:Laila Leigh , 08/14/2025 01:00:00 PM, [address] [place] [address], [phone], Progress Notes * Kris OMALLEYOB:[birth year] (34 yo F)Acc No.[id number]:03/01/2025 Progress Notes Patient: Meaghan SAAVEDRA Appointment Provider: Nova Leigh DNP :1990 A ge:34 Y S ex:Female Date:03/01/2025 Address:[address] [place], [place] [phone] Subjective: * Chief Complaints: * 1 . Left side pain. * HPI: C onstitutional: Patient presents today with concerns of pain in her left calf that began yesterday morning. She became anxious thinking that this pain was deep, internal, and it was a blod clot. She then developed left flank pain that radiated to her LLQ pain. After her left arm she became numb and had pain in her left shoulder and neck. Today, she states she feels better today but still feels off. . G YN: Patient has been noticing mood changes, bloating, sweating episodes, and periods have remained normal and monthly. LMP: due in 5 months - she did stop using her NuvaRing as she felt this was not helping her moods or symptoms of concern. 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 * ROS: G eneral/Constitutional: Denies C hange in appetite. D enies C hills. D enies F ever. D enies S leep disturbance. D enies W eight gain. D enies W eight loss. R espiratory: Denies C ough. D enies S hortness of breath. D enies S hortness of breath with exertion. D enies S putum production. D enies W heezing. C ardiovascular: Denies C hest pain. D enies C hest pain with exertion. D enies C laudication. D enies D izziness. D enies D yspnea on exertion.?Denies I rregular heartbeat. D enies P alpitations. D enies S hortness of breath. D enies W eight gain. G astrointestinal: Denies D ark Stools. D enies A bdominal pain. D enies B lood in stool. D enies C onstipation. D enies D ecreased appetite. D enies H eartburn. D enies N ausea. D enies R ectal bleeding. D enies W eight loss. H ematology: Denies B leeding problems. D enies E asy bruising.?Denies P rolonged bleeding. D enies S wollen glands. G enitourinary: Denies N octuria. D enies B lood in urine. D enies D ifficulty urinating. D enies F requent urination. * Medical History: R ecurrent cold sores, Chronic pain in right shoulder. * Social History: T obacco Use: T obacco Use/Smoking A re you a n onsmoker D rugs/Alcohol: D rugs H ave you used drugs other than those for medical reasons in the past 12 months? N o Alcohol Screen (Audit-C) D id you have a drink containing alcohol in the past year? Y es H ow often did you have a drink containing alcohol in the past year? M onthly or less (1 point) H ow many drinks did you have on a typical day when you were drinking in the past year? 1 or 2 drinks (0 point) P oints 1 I nterpretation N egative Caffeine I ntake: 1 -2 cups per day Do you smoke marijuana?: Denies. Do you drink alcohol?: Yes, Socially. M iscellaneous: E xercise: yes, Occasionally , treadmill. * Medications: T aking Acyclovir 200 MG Capsule TAKE 1 CAPSULE DURING COLD SORE OUTBREAK ORALLY FIVE TIMES A DAY 5 DAYS , Discontinued Propranolol HCl 10 MG Tablet TAKE 1 TABLET BY MOUTH EVERY DAY FOR 90 DAYS , Discontinued NuvaRing 0.12-0.015 MG/24HR Ring [address] for 3 weeks, remove, and replace with a new ring after 7 day break Vaginal , Medication List reviewed and reconciled with the patient * Allergies: N .K.D.A. Objective: * Vitals: T emp:96.7F, HR:70/min, BP:112/68mm Hg, Ht: 63 in, Oxygen sat %:99%. Past Vitals:* 08/10/2024 Temp:97.7F, HR:87/min, BP:10 8/68mm Hg, Wt:166lbs, BMI:29.4Index, Ht:63in, Oxygen sat %:97% * 02/04/2024 Temp:97.7F, HR:72/min, Wt:16 7.00lbs, BMI:29.58Index, Ht:63in, Oxygen sat %:96% * 12/31/2023 Temp:97.8F, HR:85/min, Wt:17 2lbs, BMI:30.47Index, Ht: 63 in, Oxygen sat %:99% * Examination: G eneral Examination: GENERAL APPEARANCE: A ge appropriate, in no acute distress.? HEAD: n ormocephalic, atraumatic. EYES: e xtraocular movement intact (EOMI), sclera non-icteric. HEART: r egular rate and rhythm, S1, S2 normal. LUNGS: c lear to auscultation bilaterally. EXTREMITIES: n o clubbing, no cyanosis, or edema. Left tenderness behind left knee . NEUROLOGIC: n onfocal, alert and oriented, motor strength normal upper and lower extremities, no tremor. PSYCH: a lert, oriented, good eye contact. Assessment: * Assessment: 1. P ain in left lower leg - M79.662 2 . P alpitations - R00.2 (Primary)? 3. M enopausal and female climacteric states - N95.1 Plan: * Treatment: Value Reference Range E CGHr 63 * E CGPRInterval 142 * E CGPWaveAxis 158 * E CGQRSDuration 84 * E CGQrsWaveAxis 145 * E CGQTcInterval 387 * E CGQTInterval 382 * E CGTWaveAxis 180 * E CGHr 67 * E CGPRInterval 148 * E CGPWaveAxis 22 * E CGQRSDuration 86 * E CGQrsWaveAxis 38 * E CGQTcInterval 394 * E CGQTInterval 382 * E CGTWaveAxis -1 ?Procedure: HOLTER MONITOR, 7 DAYS, APPLICATION2.?Pain in left lower leg?LAB: Urinalysis, Complete-[id number] ?LAB: CBC With Differential/Platelet-833015 ?LAB: H-Cmsws-726180 ?LAB: Comp. Metabolic Panel [id number] ?Imaging: Ultrasound : Doppler : Veins Leg Left3.?Menopausal and female climacteric states?LAB: Cortisol-167994 ?LAB: Testosterone-411013 ?LAB: Luteinizing Hormone(LH)-993115 ?LAB: FSH-370699 ?LAB: Progesterone-843029 ?LAB: Prolactin-046430 ?LAB: Estrogens, Total-694388 * Procedure Codes: 9 3242 EXT ECG>48HR<7D RECORDING, 64769 -ELECTROCARDIOGRAM, COMPLETE * Images: Billing Information: * Visit Code: * Procedure Codes: 52962 EXT ECG>48HR<7D RECORDING. 44215 -ELECTROCARDIOGRAM, COMPLETE. * Electronic signature of Halie Leigh DNP on 03/02/2025 at 06:58 PM EDT Sign off status: Pending * Appointment Provider: Nova Leigh DNP Date: 03/01/2025 Generated for Renny doan/Cristin/Edmarransmitting on: 03/02/2025 06:58 PM EDT History and Physical Notes * Examination Category Sub-Category Detail Notes Category Not es General Examination GENERAL APPEARANCE: Age appr opriate, in no acute distress HEAD: normocephalic, atrau matic EYES: extraocular movement intact (EOMI), sclera non-icteric HEART: regular rate and rhy thm, S1, S2 normal LUNGS: clear to auscultatio n bilaterally NEUROLOGIC: nonfocal, alert and oriented, motor strength normal upper and lower extremities, no tremor EXTREMITIES: no clubbing, no cyan osis, or edema. Left tenderness behind left knee PSYCH: alert, oriented, goo d eye contact
--- NOTE | 2025-03-02 15:30 | A.OFFVIS_ITS ---
Vital Signs 03/02/25 15:31 Height 5 ft 2 in Weight 168 lb BMI 30.7 Intake Visit Reasons: 2-3 weeks colpo results Allergies No Known Allergies Allergy (Verified 02/09/25 09:29) HPI Comments Details: Presenting post co testing/colpo for follow-up. The patient is doing well with no complaints. Pap smear showed ASCUS HPV high-risk positive, HPV 16/18 negative The pathology showed the following: A. Endocervix, curettage: Fragments of benign endocervical glands; negative for squamous intraepithelial lesion. B. Cervix, 5 o'clock, biopsy: Chronic cervicitis; negative for squamous intraepithelial lesion. C. Cervix, 6 o'clock, biopsy: Squamous mucosa within normal limits; no endocervical component seen; negative for squamous intraepithelial lesion. D. Cervix, 7 o'clock, biopsy: Chronic cervicitis; negative for squamous intraepithelial lesion. E. Cervix, 12 o'clock, biopsy: Chronic cervicitis; negative for squamous intraepithelial lesion. 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; CIN2; margins negative REPLACED BY [facility] Medical History MARYSOL II (cervical intraepithelial neoplasia II) Hypercholesteremia ADHD Seasonal allergies Surgical History History of oral surgery Family History Father Heart disease Paternal Grandfather Diabetes mellitus Heart attack Social History Are you a primary rn wound care to a significant other at home: No Do you presently have visiting nurse or other home services: No Alcohol intake: current Alcohol intake frequency: holidays/special occasions only Patient Tobacco Use Status: Never used Tobacco Sexual orientation: Straight/Heterosexual Gender identity: Female Female Reproductive History Menstrual Age of Menarche: 10 Review of Systems Const All systems reviewed & are unremarkable except as noted in HPI and below Reports as per HPI and Reports no additional complaints GI Reports no additional complaints Reports no additional complaints Physical Exam Vital Signs: BMI result Body Mass Index 30.7 Assessment & Plan Assessment & Plan (1) ASCUS with positive high risk HPV cervical: Code(s): R87.610 - Atypical squamous cells of undetermined significance on cytologic smear of cervix (ASC-US); R87.810 - Cervical high risk human papillomavirus (HPV) DNA test positive Category: Medical Plan: Discussed with the patient the pathology results of the colposcopy biopsies & endocervical curettage. Discussed with the patient the sensitivity specificity, positive and negative predictive value in detecting cervical cancer in addition discussed the regression, persistence and progression rates. Recommended co- testing in 12 months, if cytology and or HPV are abnormal will proceed was colposcopy biopsy and endocervical curettage. Instructions given to the patient to schedule a co test appointment in 1 year. All questions answered the patient verbalized understanding. Coding Level of Care Code Est Pt Level 3 (32835) Diagnoses ASCUS with positive high risk HPV cervical R87.610; R87.810
[2025-03-02 15:31] VITALS: BMI 30.7
== END 2025-03-02 15:52 | disposition home or self-care (01) ==
LOC: HO.HWS 15:25
PROVIDERS: PCP Nurse Practitioner Family; Visit Provider Obstetrics & Gynecology
DX: R87.610 Atypical squamous cells of undetermined significance on cytologic smear of cervix (ASC-US) (principal); R87.810 Cervical high risk human papillomavirus (HPV) DNA test positive
CPT/HCPCS: 99213

== ENCOUNTER 2025-03-06 11:25 | Outpatient (REF) | payer OTHER, SELFPAY | END 2025-03-06 11:26 | disposition home or self-care (01) | LOC: HO.LNP 11:25 | PROVIDERS: PCP Nurse Practitioner Family; Visit Provider Obstetrics & Gynecology | DX: Z13.89 Encounter for screening for other disorder (principal) ==

== ENCOUNTER 2025-03-06 11:25 | Outpatient (AMB) | payer OTHER, SELFPAY ==
--- OUTSIDE RECORDS SUMMARY | 2025-03-01 06:30 | XMS_ITS ---
Author Organization Tom Salazar MD Address [address] [id number] Care Team Providers Care Strong Nitric Operator Name Role Phone Lu Laila Primary Care Provider [phone] Allergies No Known Allergies Results Component Value Reference Range Notes Urinalysis, Complete-[id number] (Not yet reviewed by provider) Interpretation: Performing Lab:[facility], [address] [facility], [place], Phone - [phone], Director - [facility] Notes/Report: Specific [place] 1.005 1.005-1.030 pH 7.0 5.0-7.5 Urine-Color Yellow Yellow Appearance Clear Clear WBC Esterase Negative Negative Protein Negative Negative/Trace Glucose Negative Negative Ketones Negative Negative Occult Blood Negative Negative Bilirubin Negative Negative Urobilinogen,Semi-Qn 0.2 0.2-1.0 mg/dL Nitrite, Urine Negative Negative Microscopic Examination Micr oscopic follows if indicated. Microscopic Examination See below: Micr oscopic was indicated and was performed. WBC None seen 0 - 5 /hpf RBC 0-2 0 - 2 /hpf Epithelial Cells (non renal) 0-10 0 - 10 /hpf Casts None seen None seen /lpf Bacteria None seen None seen/Few Cortisol-818251 (Not yet rev iewed by provider) Interpretation: Performing Lab:[facility], [address], [place], Phone - [phone], Director - [facility] Notes/Report: Cortisol 12.8 6.2-19.4 ug/dL Please Note: The reference interval and flagging for this test is for an AM collection. If this is a PM collection please use: Cortisol PM: 2.3-11.9 Testosterone-000825 (Not yet reviewed by provider) Interpretation: Performing Lab:[facility], Phone - [phone], [facility] Notes/Report: Testosterone 33 8-60 ng/dL Luteinizing Hormone(LH)-0042 83 (Not yet reviewed by provider) Interpretation: Performing Lab:[facility] [address], Phone - [phone], [facility] Notes/Report: LH 4.5 Adult Female Range Follicular phase 2.4 - 12.6 Ovulation phase 14.0 - 95.6 Luteal phase 1.0 - 11.4 Postmenopausal 7.7 - 58.5 FSH-905735 (Not yet reviewed by provider) Interpretation: Performing Lab:[facility], Phone - [phone], [facility] Notes/Report: FSH 2.8 Adult Female Range Follicular phase 3.5 - 12.5 Ovulation phase 4.7 - 21.5 Luteal phase 1.7 - 7.7 Postmenopausal 25.8 - 134.8 Progesterone-122592 (Not yet reviewed by provider) Interpretation: Performing Lab:[facility] [address], Phone - [phone], [facility] Notes/Report: Progesterone 12.6 Follicular phase 0.1 - 0.9 Luteal phase 1.8 - 23.9 Ovulation phase 0.1 - 12.0 First trimester 11.0 - 44.3 Second trimester 25.4 - 83.3 Third trimester 58.7 - 214.0 Postmenopausal 0.0 - 0.1 Prolactin-434757 (Not yet re viewed by provider) Interpretation: Performing Lab:[facility] [address], Phone - [phone], [facility] Notes/Report: Prolactin 5.0 4.8-33.4 ng/mL Estrogens, Total-735281 (Not yet reviewed by provider) Interpretation: Performing Lab:[facility] [address], Phone - [phone], [facility] Notes/Report: Estrogens, Total 244 Prepubertal < 40 Female Cycle: 1-10 Days 16 - 328 11-20 Days 34 - 501 21-30 Days 48 - 350 Post-Menopausal 40 - 244 CBC With Differential/Platel et-572673 (Not yet reviewed by provider) Interpretation: Performing Lab:[facility] [place], [address] [facility], Phone - [phone], Director - [facility] Notes/Report: WBC 6.1 3.4-10.8 x10E3/uL RBC 4.93 3.77-5.28 x10E6/uL Hemoglobin 15.1 11.1-15.9 g/dL Hematocrit 46.3 34.0-46.6 % MCV 94 79-97 fL MCH 30.6 26.6-33.0 pg MCHC 32.6 31.5-35.7 g/dL RDW 12.8 11.7-15.4 % Platelets 192 150-450 x10E3/uL Neutrophils 70 Not Estab. % Lymphs 22 Not Estab. % Monocytes 6 Not Estab. % Eos 1 Not Estab. % Basos 1 Not Estab. % Neutrophils (Absolute) 4.2 1.4-7.0 x10E3/uL Lymphs (Absolute) 1.4 0.7-3.1 x10E3/uL Monocytes(Absolute) 0.4 0.1-0.9 x10E3/uL Eos (Absolute) 0.1 0.0-0.4 x10E3/uL Baso (Absolute) 0.0 0.0-0.2 x10E3/uL Immature Granulocytes 0 Not Estab. % Immature Grans (Abs) 0.0 0.0-0.1 x10E3/uL H-Tdnfm-[id number] (Not yet revi ewed by provider) Interpretation: Performing Lab[facility], [address] [facility], [place], Phone - [phone], Director - [facility] Notes/Report: D-Dimer 0.31 0.00-0.49 mg/L FEU According to the assay legal administrative secretary's published package insert, a normal (<0.50 mg/L FEU) D-dimer result in conjunction with a non-high clinical probability assessment, excludes deep vein thrombosis (DVT) and pulmonary embolism (PE) with high sensitivity. . D-dimer values increase with age and this can make VTE exclusion of an older population difficult. To address this, the [employer], based on best available evidence and recent guidelines, recommends that clinicians use age-adjusted D-dimer thresholds in patients greater than 50 years of age with: a) a low probability of PE who do not meet all Pulmonary Embolism Rule Out Criteria, or b) in those with intermediate probability of PE. The formula for an age-adjusted D-dimer cut-off is age/100 . For example, a 60 year old patient would have an age-adjusted cut-off of 0.60 mg/L FEU and an 80 year old 0.80 mg/L FEU. Comp. Metabolic Panel ([id number] (Not yet reviewed by provider) Interpretation: Performing Lab:[facility] [place], [address] [facility], [place], Phone - [phone], Director - [facility] Notes/Report: Glucose 83 70-99 mg/dL BUN 16 6-20 mg/dL Creatinine 0.74 0.57-1.00 mg/dL eGFR 107 >59 mL/min/1.73 BUN/Creatinine Ratio 22 9-23 Sodium 139 134-144 mmol/L Potassium 4.4 3.5-5.2 mmol/L Chloride 104 96-106 mmol/L Carbon Dioxide, Total 19 20-29 mmol/L Calcium 9.0 8.7-10.2 mg/dL Protein, Total 6.8 6.0-8.5 g/dL Albumin 4.4 3.9-4.9 g/dL Globulin, Total 2.4 1.5-4.5 g/dL Bilirubin, Total 0.3 0.0-1.2 mg/dL Alkaline Phosphatase 65 44-121 IU/L AST (SGOT) 26 0-40 IU/L ALT (SGPT) 23 0-32 IU/L EKG (Not yet reviewed by pro vider) [...] Problem Status W/U Status Risk Notes Problem Menopausal and female climacteric states (N95.1) Active confirmed Vital Signs Temperature 96.7 degrees Fahrenheit 03/01/20 Blood pressure systolic 112 mm Hg 03/01/20 Blood pressure diastolic 68 mm Hg 025 Heart Rate 70 /min 03/01/2025 Height 63 in 03/01/2025 Oximetry 99 % 03/01/2025 Procedures Procedure Date Ordered Date Performed Result Body Sit e HOLTER MONITOR, 7 DAYS, APPLICATION 03/01/2025 N/A Encounters Encounter Location Date Provider Diagnosis Tom Salazar MD [address] [phone] 03/01/2025 Laila Leigh Palpitations R00.2 ; Pain [...] HOLTER MONITOR, 7 DAYS, APPLICATION 02/06 Urinalysis, Complete-501377 03/01/2025 Cortisol-062384 03/01/2025 Testosterone-723097 03/01/2025 Luteinizing Hormone(LH)-723689 FSH-520404 03/01/2025 Progesterone-669061 03/01/2025 Prolactin-179601 03/01/2025 Estrogens, Total-104035 03/01/2025 CBC With Differential/Platelet-471564 V-Fqprt-595628 03/01/2025 Comp. Metabolic Panel ([id number] 2024 Next Appt Details Provider Name:Laila Leigh , 04/05/2025 09:00:00 AM, [address] [place] [address], SUITE [facility], [place], [place], [phone], Provider Name:Laila Sanchez Leigh , 08/14/2025 01:00:00 PM, [address] [facility], [address], [place], [place], [phone], Progress Notes * Kris OMALLEYOB:[birth year] (34 yo F)Acc No.[id number]:03/01/2025 Progress Notes Patient: Meaghan SAAVEDRA Appointment Provider: Nova Leigh DNP :1990 A ge:34 Y S ex:Female Date:03/01/2025 Address:[address] [place] [address] [facility] Subjective: * Chief Complaints: * 1 . [...] DAYS, APPLICATION2.?Pain in left lower leg?LAB: Urinalysis, Complete-542112 (Collection Date & Time - 03/01/2025 11:21 AM) ?LAB: CBC With Differential/Platelet-489577 (Collection Date & Time - 03/01/2025 11:21 AM) ?LAB: K-Xdaxl-882400 (Collection Date & Time - 03/01/2025 11:21 AM) ?LAB: Comp. Metabolic Panel ([id number] (Collection Date & Time - 03/01/2025 11:21 AM) ?Imaging: Ultrasound : Doppler : Veins Leg Left3.?Menopausal and female climacteric states?LAB: Cortisol-584790 (Collection Date & Time - 03/01/2025 11:21 AM) ?LAB: Testosterone-476397 (Collection Date & Time - 03/01/2025 11:21 AM) ?LAB: Luteinizing Hormone(LH)-017054 (Collection Date & Time - 03/01/2025 11:21 AM) ?LAB: FSH-848025 (Collection Date & Time - 03/01/2025 11:21 AM) ?LAB: Progesterone-789311 (Collection Date & Time - 03/01/2025 11:21 AM) ?LAB: Prolactin-591690 (Collection Date & Time - 03/01/2025 11:21 AM) ?LAB: Estrogens, Total-264527 (Collection Date & Time - 03/01/2025 11:21 AM) * Procedure Codes: 9 3242 EXT ECG>48HR<7D RECORDING, 28393 -ELECTROCARDIOGRAM, COMPLETE * Images: Billing Information: * Visit Code: * Procedure Codes: 12088 EXT ECG>48HR<7D RECORDING. 50622 -ELECTROCARDIOGRAM, COMPLETE. * Electronic signature of Halie Leigh DNP on 03/06/2025 at 12:19 PM EDT Sign off status: Pending * Appointment Provider: Nova Leigh DNP Date: 0 03/01/2025 Generated for Printi ng/Faxing/eTransmitting on: 0 03/06/2025 12:19 PM EDT History and Physical Notes * [...]
[2025-03-06 11:29] VITALS: BMI 30.7
--- NOTE | 2025-03-06 11:29 | A.OFFVIS_ITS ---
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 [facility] Medical History MARYSOL II (cervical intraepithelial neoplasia II) Hypercholesteremia ADHD Seasonal allergies Surgical History History of oral surgery Family History Father Heart disease Paternal Grandfather Diabetes mellitus Heart attack Social History Are you a primary md do resident urgent care to a significant other at home: No Do you presently have visiting nurse or other home services: No Alcohol intake: current Alcohol intake frequency: holidays/special occasions only Patient Tobacco Use Status: Never used Tobacco Sexual orientation: Straight/Heterosexual Gender identity: Female Female Reproductive History Menstrual Age of Menarche: 10 Review of Systems Const All systems reviewed & are unremarkable except as noted in HPI and below Physical Exam Vital Signs: BMI result Body Mass Index 30.7 General: Yes no CVA tenderness External Female Exam: normal external appearance and normal appearance of the urethra Speculum Exam - Vagina: normal appearance of the vagina, normal palpation, no lesions and no masses Speculum Exam - Cervix: normal appearance of the cervix, normal palpation, no lesions, no masses and nontender Bimanual exam- vagina & uterus: normal bimanual exam, normal palpation, uterine size normal, normal palpation, uterine shape normal, No Cervical tenderness present and non-tender Bimanual Exam- Adnexa, other: normal adnexae Back/Spine/Pelvis Back: no CVA tenderness Assessment & Plan Assessment & Plan (1) Screen for STD (sexually transmitted disease): Code(s): Z11.3 - Encounter for screening for infections with a predominantly sexual mode of transmission Category: Medical Plan: STD screening tests done includes: BV panel for trichomonas, GC/CT will send patient for serology std screening for HIV, RPR, Hep b s Ag, HepC Ab. Instructions given the patient to schedule a follow-up appointment for repeat se rology screen in 6 months for possible false negatives. Orders: Orders HIV Ab/Ag Today Z20.2 - Contact with and (suspected) exposure to infections with a predominantly sexual mode of transmission Syphilis Screen Today Z20.2 - Contact with and (suspected) exposure to infections with a predominantly sexual mode of transmission Hepatitis B Surface Antigen Today Z20.2 - Contact with and (suspected) exposure to infections with a predominantly sexual mode of transmission Hepatitis C Antibody Today Z20.2 - Contact with and (suspected) exposure to infections with a predominantly sexual mode of transmission Coding Level of Care Code Est Pt Level 3 (89530) Diagnoses Screen for STD (sexually transmitted disease) Z11.3
== END 2025-03-06 11:40 | disposition home or self-care (01) ==
LOC: HO.HWS 11:25
PROVIDERS: PCP Nurse Practitioner Family; Visit Provider Obstetrics & Gynecology
DX: Z11.3 Encounter for screening for infections with a predominantly sexual mode of transmission (principal)
CPT/HCPCS: 99213

== ENCOUNTER 2025-03-06 11:54 | Outpatient (REF) | payer OTHER, SELFPAY ==
[2025-03-06 13:06] LABS: HBsAGNum1 0.42 S/CO (0.00-0.99); HIV AB/AG Nonreactive (Nonreactive); HIV Num 1 0.07 S/CO (0.00-0.99); Hepatitis B Surface Antigen Negative (Negative); Syphilis Screen Nonreactive (Nonreactive); ~HepC Num1 0.25 S/CO (0.00-0.79); ~Hepatitis C Antibody Nonreactive (Nonreactive)
[2025-03-06 21:00] LABS: Bacterial Vaginosis PCR POSITIVE (Negative); Candida Group PCR NOT DETECTED (Not Detect); Candida glab krusei PCR NOT DETECTED (Not Detect); Trichomonas vaginalis PCR NOT DETECTED (Not Detect)
[2025-03-06 21:47] LABS: CT PCR NOT DETECTED (Not Detect.); NG PCR NOT DETECTED (Not Detect.)
== END 2025-03-06 11:55 | disposition home or self-care (01) ==
LOC: HO.LAB 11:54
PROVIDERS: PCP Nurse Practitioner Family; Visit Provider Obstetrics & Gynecology
DX: Z20.2 Contact with and (suspected) exposure to infections with a predominantly sexual mode of transmission (principal); Z11.4 Encounter for screening for human immunodeficiency virus [HIV]
CPT/HCPCS: 36415; 81515; 86780; 86803; 87340; 87389; 87491; 87591